=== PATIENT | male | born 1940 | race Caucasian/White ===

== ENCOUNTER 2017-12-11 14:28 | Emergency (ER) | payer MEDICARE, OTHER ==
[2017-12-11 15:10] LABS: BASOPHILS # (AUTO) 0.1 10^3/uL (0.0-0.1); BASOPHILS % (AUTO) 1.2 %; EOSINOPHILS # (AUTO) 0.1 10^3/uL (0.0-0.7); EOSINOPHILS % (AUTO) 1.4 %; HGB - HEMOGLOBIN 15.2 g/dL (14.0-18.0); LYMPHOCYTES # (AUTO) 2.6 10^3/uL (1.5-3.5); LYMPHOCYTES % (AUTO) 28.3 %; MEAN CORPUSCULAR HEMOGLOBIN 30.6 pg (27.0-31.0); MEAN CORPUSCULAR HGB CONC 34.9 g/dL (32.0-36.0); MEAN CORPUSCULAR VOLUME 87.7 fL (80.0-94.0); MEAN PLATELET VOLUME 7.5 fL (7.4-11.4); MONOCYTES # (AUTO) 0.7 10^3/uL (0.0-1.0); MONOCYTES % (AUTO) 7.8 %; NEUTROPHILS # (AUTO) 5.6 10^3/uL (1.5-6.6); NEUTROPHILS % (AUTO) 61.3 %; PLT - PLATELET COUNT 288 10^3/uL (130-450); RED BLOOD COUNT 4.96 10^6/uL (4.70-6.10); RED CELL DISTRIBUTION WIDTH 12.7 % (12.0-15.0); WHITE BLOOD COUNT 9.2 x10^3/uL (4.8-10.8)
[2017-12-11 15:22] LABS: ALBUMIN 4.1 g/dL (3.2-5.5); ALBUMIN/GLOBULIN RATIO 1.2 (1.0-2.2); BILIRUBIN,TOTAL 1.3 mg/dL (0.2-1.0); CALCIUM 9.6 mg/dL (8.5-10.3); CREATININE 1.5 mg/dL (0.6-1.2); TOTAL PROTEIN 7.5 g/dL (6.7-8.2)
--- NOTE | 2017-12-11 15:43 | XRAY Report ---
Reason: chest pain, soa, weak Procedure Date: 12/11/2017 Accession Number: [id number] / [id number] Procedure: XR - Chest 2 View X-Ray CPT Code: 40446 FULL RESULT: EXAM: CHEST RADIOGRAPHY EXAM DATE: 12/11/2017 03:27 PM. CLINICAL HISTORY: Dyspnea and chest pain. COMPARISON: 07/19/2017. TECHNIQUE: 2 views. FINDINGS: Lungs/Pleura: Lungs are mildly hyperinflated. No focal opacities. No pneumothorax or effusions. Mediastinum: Heart and mediastinal contours are unremarkable. Other: None. IMPRESSION: 1. No acute pulmonary process. 2. COPD. RADIA
[2017-12-11] MEDS ORDERED: SODIUM CHLORIDE 0.9% 1,000 ML IV ONE ×3 (15:50→18:31)
--- NOTE | 2017-12-11 15:53 | ED Physician Documentation ---
History of Present Illness - Stated complaint Stated Complaint: L ARM PX,WEAK - Chief complaint Chief Complaint: Cardiac - History obtained from History obtained from: Patient, Family - History of Present Illness Timing: How many weeks ago (1) - Additonal information Additional information: 77-year-old male with a history of coronary stents and CVA previously was out digging a hole in his yard 1 week ago. He came in from this extremely short of breath and has been weak since that time. He had significant weakness on Friday of last week and is developed some pain in his left arm and chest. He has had some shortness of breath is up and around and he feels faint. He did have a syncopal episode on Friday. He does not believe he has been drinking adequate amounts of fluid he has been checking his blood sugar and it is been running in the 120-140 range in the mornings. He expected his symptoms to resolve and they have persisted he is come to the emergency department for evaluation. Review of Systems Constitutional: reports: Myalgias, Fatigue. denies: Fever Eyes: denies: Decreased vision Ears: denies: Ear pain Nose: denies: Rhinorrhea / runny nose, Congestion Throat: denies: Sore throat Cardiac: reports: Chest pain / pressure. denies: Palpitations, Pedal edema, Calf pain Respiratory: reports: Dyspnea. denies: Cough, Wheezing GI: denies: Abdominal Pain, Nausea, Vomiting : denies: Dysuria, Frequency, Hesitancy Skin: denies: Rash Musculoskeletal: denies: Neck pain, Back pain, Extremity pain Neurologic: reports: Generalized weakness, Near syncope, Syncope. denies: Focal weakness, Numbness, Difficulty speaking PD PAST MEDICAL HISTORY - Past Medical History Cardiovascular: Hypertension, High cholesterol, Coronary artery disease, [place] Endocrine/Autoimmune: Type 2 diabetes GI: None : None Psych: None Musculoskeletal: Osteoarthritis Derm: None - Past Surgical History Past Surgical History: Yes General: Cholecystectomy, Appendectomy Cardiovascular: Coronary stent HEENT: Tonsil/Adenoidectomy - Allergies Allergies/Adverse Reactions: Allergies Allergy/AdvReac Type Severity Reaction Status Date / Time No Known Drug Allergies Allergy Verified 04/17/14 19:35 - Social History Does the pt smoke?: No Smoking Status: Never smoker Does the pt drink ETOH?: No Does the pt have substance abuse?: No - Immunizations Immunizations are current?: Yes - POLST Patient has POLST: No PD ED PE NORMAL - Vitals Vital signs reviewed: Yes (hypertensive diastolic only ) - General General: Alert and oriented X 3, No acute distress, Well developed/nourished - HEENT HEENT: Atraumatic, PERRL, EOMI, Other (dry mucous membranes ) - Neck Neck: Supple, no meningeal sign, No bony TTP - Cardiac Cardiac: No murmur, Other (tachy to 120 with irregular rate and rhythm ) - Respiratory Respiratory: No respiratory distress, Clear bilaterally - Abdomen Abdomen: Soft, Non tender - Back Back: No CVA TTP, No spinal TTP - Derm Derm: Normal color, Warm and dry, No rash - Extremities Extremities: No deformity, No edema - Neuro Neuro: Alert and oriented X 3, mental health therapist 2-12 intact, No motor deficit, No sensory deficit, Normal speech Eye Opening: Spontaneous Motor: Obeys Commands Verbal: Oriented GCS Score: 15 - Psych Psych: Normal mood, Normal affect Results - Vitals Vitals: Vital Signs - 24 hr 12/11/17 12/11/17 12/11/17 14:43 17:24 18:35 Temperature 36.8 C Heart Rate 67 87 108 H Respiratory 20 13 11 L Rate Blood Pressure 101/81 H 143/101 H 143/86 H O2 Saturation 97 97 99 12/11/17 18:48 Temperature Heart Rate 71 Respiratory Rate Blood Pressure 133/81 H O2 Saturation Oxygen O2 Source Room air - EKG (time done) 1451 Rate: Rate (enter#) (123) Rhythm: Atrial fibrillation QRS: Poor R wave progression Ischemia: Q waves Compare to prior EKG: Changed from prior EKG (SPT 01-12-13 the rhythm has chagned to afib and the rate has increased. ) Computer interpretation: Agree with computer - Labs Labs: Laboratory Tests 12/11/17 12/11/17 12/11/17 15:04 15:04 15:04 WBC 9.2 RBC 4.96 Hgb 15.2 Hct 43.5 MCV 87.7 MCH 30.6 MCHC 34.9 RDW 12.7 Plt Count 288 MPV 7.5 Neut # (Auto) 5.6 Lymph # (Auto) 2.6 Bureau # (Auto) 0.7 Eos # (Auto) 0.1 Baso # (Auto) 0.1 Absolute Nucleated RBC 0.00 Nucleated RBC % 0.0 Sodium 135 Potassium 3.7 Chloride 101 Carbon Dioxide 23 Anion Gap 11.0 BUN 34 H Creatinine 1.5 H Estimated GFR (MDRD) 45 L Glucose 300 H Calcium 9.6 Total Bilirubin 1.3 H AST 24 ALT 21 Alkaline Phosphatase 71 Troponin I < 0.04 Total Protein 7.5 Albumin 4.1 Globulin 3.4 Albumin/Globulin Ratio 1.2 Lipase 35 - Rads (name of study) 2 veiw chest Radiology: Prelim report reviewed (Impression: 1. No acute pulmonary process. COPD.), EMP read indepedently, See rad report Procedures - IVC sono (time) 1548 Bedside IVC sono: IVC measures (cm) (0.89), IVC collapsed c insp (cm) (complete) , Dehydration (est 2 liter deficit) PD MEDICAL DECISION MAKING - ED course Complexity details: reviewed old records, reviewed results, re-evaluated patient , considered differential, d/w patient, d/w family ED course: 77-year-old male with a recent overexertion has become significantly dehydrated and is in atrial fibrillation. He has a rapid rate and volume depletion. He is administered intravenous saline and this brings his heart rate to 100 after 2 liters and he continues to be symptomatic and he is administered diltiazem 20mg IV with reduction in the heart rate to the 70's with improvement. - Sepsis Event Vital Signs: Vital Signs - 24 hr 12/11/17 12/11/17 12/11/17 14:43 17:24 18:35 Temperature 36.8 C Heart Rate 67 87 108 H Respiratory 20 13 11 L Rate Blood Pressure 101/81 H 143/101 H 143/86 H O2 Saturation 97 97 99 12/11/17 18:48 Temperature Heart Rate 71 Respiratory Rate Blood Pressure 133/81 H O2 Saturation Oxygen O2 Source Room air Departure - Departure Disposition: 01 Home, Self Care Clinical Impression: Atrial fibrillation with RVR, Dehydration Condition: Stable Instructions: ED Dehydration, ED Afib Follow-Up: [facility] - [place], [place] [Provider Group] Amadeo Mcclain MD [Provider Admit Priv/Credential] -
[2017-12-11] MEDS ORDERED: diltiaZEM INJ 5 MG/ML VIAL IVP STA (18:32)
[2017-12-11 19:16] VITALS: BP 135/90
[2017-12-11 19:33] LABS: BILIRUBIN,URINE NEGATIVE (NEGATIVE); GLUCOSE, URINE (UA) 500 mg/dL (NEGATIVE); KETONES,URINE (UA) NEGATIVE (NEGATIVE); LEUKOCYTE ESTERASE, URINE NEGATIVE (NEGATIVE); NITRITE,URINE NEGATIVE (NEGATIVE); OCCULT BLOOD,URINE NEGATIVE (NEGATIVE); PH,URINE 6.5 PH (5.0-7.5); PROTEIN,URINE NEGATIVE (NEGATIVE); UROBILINOGEN,URINE 0.2 (NORMAL) E.U./dL (NORMAL)
[2017-12-11 19:39] LABS: CLARITY,URINE CLEAR (CLEAR)
== END 2017-12-11 19:25 | disposition home or self-care (01) ==
LOC: ED 14:28
DX: I48.91 Unspecified atrial fibrillation (principal); E86.0 Dehydration; E11.9 Type 2 diabetes mellitus without complications; I25.10 Atherosclerotic heart disease of native coronary artery without angina pectoris; I25.2 Old myocardial infarction; Z95.5 Presence of coronary angioplasty implant and graft; Z86.73 Personal history of transient ischemic attack (TIA), and cerebral infarction without residual deficits
CPT/HCPCS: 36415; 71046; 80053; 81001; 81003; 83690; 84484; 85025; 87086; 93005; 96361; 96374; 99284

== ENCOUNTER 2018-03-30 15:43 | Emergency (ER) | payer MEDICARE, OTHER ==
--- NOTE | 2018-03-30 16:11 | ED Physician Documentation ---
PD HPI GI BLEED - Stated complaint Stated Complaint: MALE - Chief complaint Chief Complaint: General - History obtained from History obtained from: Patient - History of Present Illness Timing - onset: How many days ago (few) Timing - details: Gradual onset Associated symptoms: BRBPR (he is having some red blood around stool when he goes the past couple of days, and today it seemed to be mixed with the stool, like a swirl, rather than just separate.). No: Black/tarry stool, Diarrhea Contributing factors: No: Sick contact, Bad food, Recent antibiotics, Anticoagulated Worsened by: Other (noted blood out with BMs.) Similar symptoms before: Has not had sx before Recently seen: Clinic (had atrial fib again recently and started on Xarelto 3 weeks ago.) Review of Systems Constitutional: denies: Fever, Myalgias Nose: denies: Rhinorrhea / runny nose, Congestion, Epistaxis Throat: denies: Sore throat Cardiac: denies: Chest pain / pressure, Palpitations Respiratory: denies: Dyspnea, Cough GI: reports: Bloody / black stool. denies: Abdominal Pain, Nausea, Vomiting, Diarrhea, Hematemesis : reports: Hematuria (cola colored urine for the past week, seen in clinic and Rx antibiotic for possible UTI with UA done showing some blood in urine.). denies: Dysuria, Frequency Skin: denies: Rash, Lesions Neurologic: denies: Generalized weakness, Near syncope PD PAST MEDICAL HISTORY - Past Medical History Cardiovascular: Hypertension, High cholesterol, Coronary artery disease Respiratory: None Neuro: CVA Endocrine/Autoimmune: Type 2 diabetes GI: None : None HEENT: None Psych: None Musculoskeletal: Osteoarthritis Derm: None Other Past Medical History: 2 stents - Past Surgical History Past Surgical History: Yes General: Cholecystectomy Cardiovascular: Coronary stent HEENT: Tonsil/Adenoidectomy - Present Medications Home Medications: Ambulatory Orders Medication Instructions Recorded Confirmed Hydrocortisone Acetate [Anucort-Hc] 25 mg RC DAILY #5 supp.rect 03/30/18 Rivaroxaban [Xarelto] 1 tab PO DAILY 03/30/18 03/30/18 - Allergies Allergies/Adverse Reactions: Allergies Allergy/AdvReac Type Severity Reaction Status Date / Time No Known Drug Allergies Allergy Verified 03/30/18 15:55 - Social History Does the pt smoke?: No Smoking Status: Never smoker Does the pt drink ETOH?: No Does the pt have substance abuse?: No - Immunizations Immunizations are current?: Yes - POLST Patient has POLST: No PD ED PE NORMAL - Vitals Vital signs reviewed: Yes - General General: Alert and oriented X 3, No acute distress, Well developed/nourished - HEENT HEENT: Atraumatic, Pharynx benign - Neck Neck: Supple, no meningeal sign, No adenopathy - Cardiac Cardiac: RRR, No murmur - Respiratory Respiratory: Clear bilaterally - Abdomen Abdomen: Normal bowel sounds, Soft, Non tender, Non distended - Male Male : Deferred - Rectal Rectal: Other (some hemorrhoids noted, with scant bleeding externally. Digital exam shows brown stool in vault above that, soft, which does test guiac moderate positive, but not clear if getting that from the amount at hemorrhoid near opening. It is not melenotic. ) Results - Vitals Vitals: Vital Signs - 24 hr 03/30/18 03/30/18 15:51 18:56 Temperature 36.5 C Heart Rate 76 82 Respiratory 16 16 Rate Blood Pressure 144/65 H 179/95 H O2 Saturation 97 99 Oxygen O2 Source Room air - Labs Labs: Laboratory Tests 03/30/18 03/30/18 03/30/18 17:01 17:03 17:03 WBC 7.3 RBC 4.41 L Hgb 13.0 L Hct 38.4 L MCV 87.0 MCH 29.6 MCHC 34.0 RDW 12.5 Plt Count 255 MPV 7.1 L Neut # (Auto) 4.9 Lymph # (Auto) 1.7 [place] # (Auto) 0.6 Eos # (Auto) 0.1 Baso # (Auto) 0.1 Absolute Nucleated RBC 0.00 Nucleated RBC % 0.0 Sodium 131 L Potassium 3.5 Chloride 99 L Carbon Dioxide 25 Anion Gap 7.0 BUN 15 Creatinine 1.1 Estimated GFR (MDRD) 65 L Glucose 246 H Calcium 8.7 Total Bilirubin 0.7 AST 16 ALT 14 Alkaline Phosphatase 102 Total Protein 7.1 Albumin 3.5 Globulin 3.6 Albumin/Globulin Ratio 1.0 Lipase 29 Urine Color BROWN Urine Clarity BLOODY Urine pH 6.0 Ur Specific [place] >=1.030 H Urine Protein 100 H Urine Glucose (UA) 500 H Urine Ketones NEGATIVE Urine Occult Blood LARGE H Urine Nitrite NEGATIVE Urine Bilirubin NEGATIVE Urine Urobilinogen 0.2 (NORMAL) Ur Leukocyte Esterase NEGATIVE Urine RBC TNTC H Urine WBC 4-5 Ur Squamous Epith Cells RARE Squamous Urine Bacteria None Seen Ur Microscopic Review INDICATED Urine Culture Comments NOT INDICATED Blood Type Antibody Screen 03/30/18 17:03 WBC RBC Hgb Hct MCV MCH MCHC RDW Plt Count MPV Neut # (Auto) Lymph # (Auto) [place] # (Auto) Eos # (Auto) Baso # (Auto) Absolute Nucleated RBC Nucleated RBC % Sodium Potassium Chloride Carbon Dioxide Anion Gap BUN Creatinine Estimated GFR (MDRD) Glucose Calcium Total Bilirubin AST ALT Alkaline Phosphatase Total Protein Albumin Globulin Albumin/Globulin Ratio Lipase Urine Color Urine Clarity Urine pH Ur Specific [place] Urine Protein Urine Glucose (UA) Urine Ketones Urine Occult Blood Urine Nitrite Urine Bilirubin Urine Urobilinogen Ur Leukocyte Esterase Urine RBC Urine WBC Ur Squamous Epith Cells Urine Bacteria Ur Microscopic Review Urine Culture Comments Blood Type O NEGATIVE Antibody Screen NEGATIVE PD MEDICAL DECISION MAKING - ED course Complexity details: reviewed results (seems stable amount of bleeding. ), considered differential (He does have some exam showing hemorrhoids. However his description of the blood mixed with stool suggests a higher source still in the lower colon likely. He also has some mild hematuria. His platelet count is normal. He does seem to be having effect from the Xarelto that he started a few weeks ago. However it does not indicate the cause of the bleeding just the enhancement of it. He still likely would warrant a colonoscopy to look for source of bleeding as I am not convinced it is just a hemorrhoid. We would have him off the Xarelto and just take a baby aspirin a day for the treatment of the atrial fibrillation.), d/w patient Departure - Departure Disposition: 01 Home, Self Care Clinical Impression: Anticoagulant effect Hematuria Qualifiers: Hematuria type: gross Qualified Code(s): R31.0 - Gross hematuria GI bleeding Qualifiers: GI bleed type/associated pathology: unspecified gastrointestinal hemorrhage type Qualified Code(s): K92.2 - Gastrointestinal hemorrhage, unspecified Condition: Stable Record reviewed to determine appropriate education?: Yes Instructions: ED Hematochezia Stable Follow-Up: Wilder Toribio DO [Primary Care Provider] - Andrzej Abreu MD [Provider Admit Priv/Credential] - Prescriptions: Hydrocortisone Acetate [Anucort-Hc] 25 mg RC DAILY #5 supp.rect Comments: Stay well-hydrated and drink lots of fluids. Stop your Xarelto. He can take a baby aspirin 81 mg daily to reduce her chance of stroke on the A. fib. Follow- up with Dr. Andrzej Abreu who is on-call for surgery regarding potential colonoscopy to evaluate the source of bleeding. Use Anusol suppositories for now as there seems to be at least some hemorrhoids though there may be other bleeding source from a prior. Follow-up with your primary care regarding an alternative to the Xarelto or just staying with the baby aspirin daily. Discharge Date/Time: 03/30/18 18:59
[2018-03-30 17:11] LABS: BASOPHILS # (AUTO) 0.1 10^3/uL (0.0-0.1); BASOPHILS % (AUTO) 0.8 %; EOSINOPHILS # (AUTO) 0.1 10^3/uL (0.0-0.7); EOSINOPHILS % (AUTO) 1.8 %; LYMPHOCYTES # (AUTO) 1.7 10^3/uL (1.5-3.5); LYMPHOCYTES % (AUTO) 22.8 %; MEAN CORPUSCULAR HEMOGLOBIN 29.6 pg (27.0-31.0); MEAN PLATELET VOLUME 7.1 fL (7.4-11.4); MONOCYTES # (AUTO) 0.6 10^3/uL (0.0-1.0); MONOCYTES % (AUTO) 7.8 %; NEUTROPHILS # (AUTO) 4.9 10^3/uL (1.5-6.6); NEUTROPHILS % (AUTO) 66.8 %; PLT - PLATELET COUNT 255 10^3/uL (130-450); RED BLOOD COUNT 4.41 10^6/uL (4.70-6.10); RED CELL DISTRIBUTION WIDTH 12.5 % (12.0-15.0); WHITE BLOOD COUNT 7.3 x10^3/uL (4.8-10.8)
[2018-03-30 17:22] LABS: ALBUMIN 3.5 g/dL (3.2-5.5); BILIRUBIN,TOTAL 0.7 mg/dL (0.2-1.0); CALCIUM 8.7 mg/dL (8.5-10.3); CREATININE 1.1 mg/dL (0.6-1.2); TOTAL PROTEIN 7.1 g/dL (6.7-8.2)
[2018-03-30 17:51] LABS: BILIRUBIN,URINE NEGATIVE (NEGATIVE); GLUCOSE, URINE (UA) 500 mg/dL (NEGATIVE); KETONES,URINE (UA) NEGATIVE (NEGATIVE); LEUKOCYTE ESTERASE, URINE NEGATIVE (NEGATIVE); NITRITE,URINE NEGATIVE (NEGATIVE); OCCULT BLOOD,URINE LARGE (NEGATIVE); PROTEIN,URINE 100 mg/dL (NEGATIVE); UROBILINOGEN,URINE 0.2 (NORMAL) E.U./dL (NORMAL)
[2018-03-30 17:54] LABS: BACTERIA,URINE None Seen /HPF (None Seen); CLARITY,URINE BLOODY (CLEAR); RBC,URINE TNTC /HPF (0-5); SQUAMOUS EPITHELIAL CELL,UR RARE Squamous (<= Few)
[2018-03-30 18:57] VITALS: BP 179/95
== END 2018-03-30 18:59 | disposition home or self-care (01) ==
LOC: ED 15:43
DX: T45.515A Adverse effect of anticoagulants, initial encounter (principal); R31.0 Gross hematuria; I10 Essential (primary) hypertension; E78.00 Pure hypercholesterolemia, unspecified; I25.10 Atherosclerotic heart disease of native coronary artery without angina pectoris; E11.9 Type 2 diabetes mellitus without complications; Z95.5 Presence of coronary angioplasty implant and graft; Z86.73 Personal history of transient ischemic attack (TIA), and cerebral infarction without residual deficits
CPT/HCPCS: 36415; 80053; 81001; 81003; 83690; 85025; 86850; 86900; 86901; 87086; 99283

== ENCOUNTER 2018-09-23 16:04 | Outpatient (CLI) | payer MEDICARE, OTHER ==
[2018-09-23] MEDS ORDERED: GADOBUTROL 10 MMOL/10 ML VIAL ONE (17:01)
[2018-09-23] MEDS ORDERED: GADOBUTROL 10 MMOL/10 ML VIAL IVP ONE (17:36)
--- NOTE | 2018-09-24 09:06 | MRI Report ---
Reason: RADICULOPATHY, LUMBAR REGION Procedure Date: 09/23/2018 Accession Number: [id number] / [id number] Procedure: MRI - Lumbar Spine W/WO CPT Code: FULL RESULT: EXAM: MRI LUMBAR SPINE WITHOUT AND WITH CONTRAST EXAM DATE: 09/23/2018 05:07 PM. CLINICAL HISTORY: Lumbar radiculopathy. Low back pain. Previous lumbar spine surgery. COMPARISONS: None. TECHNIQUE: Multiplanar, multisequence T1-weighted and fluid-sensitive sequences of the lumbar spine from T12 to S1 before and after administration of intravenous contrast. Other: None. IV contrast: 8.5 mL Gadavist. FINDINGS: Neurologic Structures: The conus terminates at L1. Alignment: Minimal levoconvex asymmetric lower lumbar curve. Minimal degenerative L5 on S1 retrolisthesis. Bone Marrow: No acute vertebral body collapse. Most prominent degenerative endplate signal changes are at L5-S1. 5 lumbar type vertebrae are assumed to be present. Disk Levels/Facets: T12-L1: Unremarkable. L1-L2: Unremarkable. L2-L3: Mild disk degeneration. Minimal to mild facet arthropathy. Circumferential bulge. Additional asymmetric broad-based left intraforaminal and far lateral protrusion. Mild central canal and left foraminal stenosis. L3-L4: Mild disk degeneration. Moderate facet arthropathy with ligamentum flavum thickening. Shallow circumferential disk bulge. Moderate central stenosis. Minimal foraminal stenosis. L4-L5: Moderate disk degeneration. Moderate to marked facet arthropathy with ligamentum flavum thickening. Susceptibility artifact from implanted spinal hardware between the L4 and L5 spinous processes. Prominent circumferential bulge. Mild marginal spurring. Upward migrating left posterior paracentral disk extrusion which measures 6 x 12 mm transverse and extends up to 17 mm superior to the L4 inferior endplate contributing to significant stenosis at the central canal and left lateral recess. At the disk space level, stenosis of the central canal and lateral recesses is severe from a combination of circumferential bulge, marginal spurring, and marked posterior element hypertrophic degenerative changes. Bilateral foraminal stenosis, mild on the right and mild to moderate on the left. L5-S1: Moderate to severe degenerative disk disease. Mild right and moderate left facet arthropathy. Patent central canal. Mild bilateral lateral recess stenosis. Moderate to severe bilateral foraminal stenosis. Circumferential bulge with marginal spurring is present with notable intraforaminal and far lateral components. Spinal Canal: No enhancing masses within the spinal canal. No epidural abscess. Musculature: Aortoiliac atherosclerosis. Mild abdominal aortic aneurysm up to 3.4 cm at the L3 level. Other: None. IMPRESSION: 1. Abdominal aortic aneurysm. 2. Prominent degenerative changes at multiple lumbar levels. Associated multi zone stenosis is most severe as described above at the L4-L5 level. 3. Susceptibility artifact from previous spinal hardware implantation between the L4 and L5 spinous processes. Comment: The following findings are so common in adults without low back pain that while we report their presence, they must be interpreted with caution and in the context of the clinical situation. (Reference Zulma et al, Spine 2001) Prevalence of findings in patients without low back pain: Disk degeneration (any evidence): 92% Disk desiccation/T2 signal loss: 83% Disk height loss: 56% Disk bulge: 64% Disk protrusion: 32% Annular tear/high intensity zone: 38% RADIA
== END 2018-09-23 16:05 | disposition home or self-care (01) ==
LOC: LAB 16:04
PROVIDERS: ATTEND Specialist
DX: M51.16 Intervertebral disc disorders with radiculopathy, lumbar region (principal); M51.17 Intervertebral disc disorders with radiculopathy, lumbosacral region; M47.26 Other spondylosis with radiculopathy, lumbar region; M47.27 Other spondylosis with radiculopathy, lumbosacral region; M48.061 Spinal stenosis, lumbar region without neurogenic claudication; M48.07 Spinal stenosis, lumbosacral region; I71.4 Abdominal aortic aneurysm, without rupture
CPT/HCPCS: 36415; 72158; 82565; A9585

== ENCOUNTER 2018-11-29 15:19 | Outpatient (CLI) | payer MEDICARE, OTHER | END 2018-11-29 15:20 | disposition critical access hospital (66) | LOC: EMS 15:19 | PROVIDERS: ATTEND Surgery | DX: R10.9 Unspecified abdominal pain (principal); M54.9 Dorsalgia, unspecified; R42 Dizziness and giddiness; R45.1 Restlessness and agitation | CPT/HCPCS: A0425; A0429 ==

== ENCOUNTER 2018-11-29 15:35 | Emergency (ER) | payer MEDICARE, OTHER ==
--- NOTE | 2018-11-29 15:59 | ED Physician Documentation ---
History of Present Illness - Stated complaint Stated Complaint: ABD PX - Chief complaint Chief Complaint: Abd Pain - History obtained from History obtained from: Patient - Additonal information Additional information: Patient is a 78-year-old male with history of GERD and multiple other comorbidities presenting with nearly 1 week of generalized abdominal discomfort. Patient reports that he struggles with chronic lower back pain from known lumbar radicular disease and has been taking large amounts of ibuprofen approximately 800 mg twice daily for the past several weeks. Patient was traveling internationally and had exacerbated lower back pain and came home early. Patient reports that over the past 1 week he has decrease his ibuprofen use, but has been experiencing intermittent Abdominal discomfort which she cannot localize. No associated fever, nausea, GERD symptoms, vomiting, urinary changes, or stool changes. Patient reports decreased oral intake. At this time, patient is without pain and otherwise a symptom medic. No other improving or worsening factors noted. Review of Systems Constitutional: denies: Fever GI: reports: Abdominal Pain. denies: Nausea, Vomiting, Constipation, Diarrhea : denies: Dysuria Musculoskeletal: reports: Back pain PD PAST MEDICAL HISTORY - Past Medical History Cardiovascular: Hypertension, High cholesterol, Coronary artery disease Respiratory: None Neuro: CVA Endocrine/Autoimmune: Type 2 diabetes GI: None : None HEENT: None Psych: None Musculoskeletal: Osteoarthritis Derm: None - Past Surgical History Past Surgical History: Yes General: Cholecystectomy Cardiovascular: Coronary stent HEENT: Tonsil/Adenoidectomy - Present Medications Home Medications: Ambulatory Orders Medication Instructions Recorded Confirmed Hydrocortisone Acetate [Anucort-Hc] 25 mg RC DAILY #5 supp.rect 03/30/18 Rivaroxaban [Xarelto] 1 tab PO DAILY 03/30/18 03/30/18 - Allergies Allergies/Adverse Reactions: Allergies Allergy/AdvReac Type Severity Reaction Status Date / Time No Known Drug Allergies Allergy Verified 03/30/18 15:55 - Social History Does the pt smoke?: No Smoking Status: Never smoker Does the pt drink ETOH?: No Does the pt have substance abuse?: No - Immunizations Immunizations are current?: Yes - POLST Patient has POLST: No PD ED PE NORMAL - Vitals Vital signs reviewed: Yes - General General: Alert and oriented X 3, No acute distress, Well developed/nourished - HEENT HEENT: Atraumatic, Moist mucous membranes - Neck Neck: Supple, no meningeal sign - Cardiac Cardiac: RRR, No murmur - Respiratory Respiratory: No respiratory distress, Clear bilaterally - Abdomen Abdomen: Soft, Non tender, Non distended - Derm Derm: Normal color, Warm and dry, No rash - Extremities Extremities: No deformity, No tenderness to palpate, No edema - Neuro Neuro: Alert and oriented X 3, No motor deficit, No sensory deficit - Psych Psych: Normal mood, Normal affect Results - Vitals Vitals: Vital Signs - 24 hr 11/29/18 15:52 Temperature 96.8 C H Heart Rate 73 Respiratory 18 Rate Blood Pressure 180/101 H O2 Saturation 99 Oxygen O2 Source Room air - Labs Labs: Laboratory Tests 11/29/18 11/29/18 11/29/18 15:50 16:08 16:08 WBC 6.5 RBC 4.81 Hgb 13.6 L Hct 40.9 L MCV 85.0 MCH 28.3 MCHC 33.3 RDW 12.4 Plt Count 263 MPV 9.4 Neut # (Auto) 4.0 Lymph # (Auto) 1.9 [place] # (Auto) 0.5 Eos # (Auto) 0.1 Baso # (Auto) 0.1 Absolute Nucleated RBC 0.00 Nucleated RBC % 0.0 Sodium 142 Potassium 3.4 L Chloride 103 Carbon Dioxide 25 Anion Gap 14.0 H BUN 22 H Creatinine 1.2 Estimated GFR (MDRD) 59 L Glucose 199 H Lactic Acid Calcium 9.8 Total Bilirubin 0.8 AST 35 ALT 39 Alkaline Phosphatase 75 Total Protein 7.7 Albumin 4.2 Globulin 3.5 Albumin/Globulin Ratio 1.2 Lipase 32 Urine Color LIGHT YELLOW Urine Clarity HAZY Urine pH 6.5 Ur Specific [place] <=1.005 Urine Protein 30 H Urine Glucose (UA) >=1000 H Urine Ketones NEGATIVE Urine Occult Blood SMALL H Urine Nitrite NEGATIVE Urine Bilirubin NEGATIVE Urine Urobilinogen 0.2 (NORMAL) Ur Leukocyte Esterase NEGATIVE Urine RBC 6-10 H Urine WBC 0-3 Ur Squamous Epith Cells RARE Squamous Urine Bacteria Rare Ur Microscopic Review INDICATED Urine Culture Comments NOT INDICATED 11/29/18 16:08 WBC RBC Hgb Hct MCV MCH MCHC RDW Plt Count MPV Neut # (Auto) Lymph # (Auto) [place] # (Auto) Eos # (Auto) Baso # (Auto) Absolute Nucleated RBC Nucleated RBC % Sodium Potassium Chloride Carbon Dioxide Anion Gap BUN Creatinine Estimated GFR (MDRD) Glucose Lactic Acid 1.4 Calcium Total Bilirubin AST ALT Alkaline Phosphatase Total Protein Albumin Globulin Albumin/Globulin Ratio Lipase Urine Color Urine Clarity Urine pH Ur Specific [place] Urine Protein Urine Glucose (UA) Urine Ketones Urine Occult Blood Urine Nitrite Urine Bilirubin Urine Urobilinogen Ur Leukocyte Esterase Urine RBC Urine WBC Ur Squamous Epith Cells Urine Bacteria Ur Microscopic Review Urine Culture Comments PD MEDICAL DECISION MAKING - ED course Complexity details: reviewed results, re-evaluated patient, considered differential, d/w patient ED course: Patient arrives asymptomatic but reports intermittent abdominal discomfort particular over the last several days following large amounts of ibuprofen in the past several weeks. Do feel the patient could be experiencing gastritis and ulcerative disease.Patient also has baseline GERD, which could be contributory. Physical exam today is extremely benign certainly no acute or surgical abdomen present. Have low suspicion for intra-abdominal pathology including renal disease, UTI, bowel obstruction, diverticulitis, or other complication, but considered. Patient started on IV fluids, but did not require medications except for gave 1 dose of Protonix given concern for ulcerative disease. Screening lab work and urinalysis returned extremely unremarkable. CT imaging did find multiple incidental findings and these were conveyed to the patient however, no acute findings that require emergent hospitalization or consult at this time. Advised on supportive cares including cessation of NSAIDs, diet and hydration recommendations, return precautions, appropriate follow-up. Patient voiced understanding and is comfortable with discharge plan. Departure - Departure Disposition: 01 Home, Self Care Clinical Impression: Abdominal pain Qualifiers: Abdominal location: generalized Qualified Code(s): R10.84 - Generalized abdominal pain Condition: Good Instructions: ED Abdominal Pain Unkn Cause Follow-Up: your,doctor [Other] - Within 3 Days Comments: Please continue home medications as previously instructed, however, please do not use ibuprofen, Aleve, Tylenol or other anti-inflammatories any further given the concern for gastritis and ulcerative disease. May try [id number] antacids as needed. Please follow-up with primary care physician next 2 to 3 days and consider referral to gastroenterology for further work-up likely to include endoscopy. Return to ED sooner if experience worsening symptoms or have other concerns.
[2018-11-29] MEDS ORDERED: SODIUM CHLORIDE 0.9% 1,000 ML IV ONE (16:00)
[2018-11-29 16:03] LABS: BILIRUBIN,URINE NEGATIVE (NEGATIVE); GLUCOSE, URINE (UA) >=1000 mg/dL (NEGATIVE); KETONES,URINE (UA) NEGATIVE (NEGATIVE); LEUKOCYTE ESTERASE, URINE NEGATIVE (NEGATIVE); NITRITE,URINE NEGATIVE (NEGATIVE); OCCULT BLOOD,URINE SMALL (NEGATIVE); PH,URINE 6.5 PH (5.0-7.5); PROTEIN,URINE 30 mg/dL (NEGATIVE); UROBILINOGEN,URINE 0.2 (NORMAL) E.U./dL (NORMAL)
[2018-11-29 16:05] LABS: CLARITY,URINE HAZY (CLEAR)
[2018-11-29 16:13] LABS: BACTERIA,URINE Rare /HPF (None Seen); SQUAMOUS EPITHELIAL CELL,UR RARE Squamous (<= Few)
[2018-11-29 16:16] LABS: BASOPHILS # (AUTO) 0.1 10^3/uL (0.0-0.1); BASOPHILS % (AUTO) 0.8 %; EOSINOPHILS # (AUTO) 0.1 10^3/uL (0.0-0.7); EOSINOPHILS % (AUTO) 1.1 %; HGB - HEMOGLOBIN 13.6 g/dL (14.0-18.0); LYMPHOCYTES # (AUTO) 1.9 10^3/uL (1.5-3.5); MEAN CORPUSCULAR HEMOGLOBIN 28.3 pg (27.0-31.0); MEAN CORPUSCULAR HGB CONC 33.3 g/dL (32.0-36.0); MEAN PLATELET VOLUME 9.4 fL (7.4-11.4); MONOCYTES # (AUTO) 0.5 10^3/uL (0.0-1.0); MONOCYTES % (AUTO) 7.4 %; NEUTROPHILS % (AUTO) 61.5 %; PLT - PLATELET COUNT 263 10^3/uL (130-450); RED BLOOD COUNT 4.81 10^6/uL (4.70-6.10); RED CELL DISTRIBUTION WIDTH 12.4 % (12.0-15.0); WHITE BLOOD COUNT 6.5 x10^3/uL (4.8-10.8)
[2018-11-29 16:27] LABS: ALBUMIN 4.2 g/dL (3.2-5.5); ALBUMIN/GLOBULIN RATIO 1.2 (1.0-2.2); BILIRUBIN,TOTAL 0.8 mg/dL (0.2-1.0); CALCIUM 9.8 mg/dL (8.5-10.3); CREATININE 1.2 mg/dL (0.6-1.2); TOTAL PROTEIN 7.7 g/dL (6.7-8.2)
[2018-11-29] MEDS ORDERED: PANTOPRAZOLE 40 MG VIAL IV STA (16:28)
[2018-11-29] MEDS ORDERED: IOVERSOL 320 100 ML VIAL IVP ONE ×2 (16:52→17:09)
--- NOTE | 2018-11-29 17:31 | CT Report ---
Reason: diffuse pain only Procedure Date: 11/29/2018 Accession Number: [id number] / [id number] Procedure: CT - Abdomen/Pelvis W CPT Code: FULL RESULT: EXAM: CT ABDOMEN AND PELVIS EXAM DATE: 11/29/2018 05:08 PM. CLINICAL HISTORY: Diffuse pain only. COMPARISONS: None. TECHNIQUE: Routine helical CT imaging was performed through the abdomen and pelvis. IV contrast: OPTI 320 90ML. Enteric contrast: No. Reconstructions: Coronal and sagittal. In accordance with CT protocol optimization, one or more of the following dose reduction techniques were utilized for this exam: automated exposure control, adjustment of mA and/or KV based on patient size, or use of iterative reconstructive technique. FINDINGS: Lung Bases: Unremarkable. Liver: Normal. No masses. Gallbladder/Bile Ducts: Soft post cholecystectomy. Spleen: Normal. Pancreas: Normal. Adrenal Glands: Normal. Kidneys: Normal. No masses or hydronephrosis. Peritoneal Cavity/Bowel: Normal. No free fluid, free air or adenopathy. No masses or acute inflammatory process. Appendix not visualized in right lower quadrant. Pelvic Organs: Normal. The bladder and visualized pelvic organs are within normal limits. Vasculature: Atherosclerotic disease involving abdominal aorta with infrarenal abdominal aortic aneurysm measuring 3.6 cm with mild peripheral nonocclusive thrombus (image 39 on series 3). Bones: No significant abnormality. Other: None. IMPRESSION: Status post cholecystectomy. Appendix not visualized in right lower quadrant. Diffuse colonic diverticulosis, however no diverticulitis. Aatherosclerotic disease of abdominal aorta with infrarenal abdominal aortic aneurysm measuring 3.6 cm with mild non-occlusive peripheral thrombus. No other significant abnormality. RADIA
[2018-11-29 17:50] VITALS: BP 207/111
== END 2018-11-29 17:50 | disposition home or self-care (01) ==
LOC: ED 15:35
DX: R10.84 Generalized abdominal pain (principal); K21.9 Gastro-esophageal reflux disease without esophagitis; K57.30 Diverticulosis of large intestine without perforation or abscess without bleeding; M53.87 Other specified dorsopathies, lumbosacral region; I71.4 Abdominal aortic aneurysm, without rupture; I10 Essential (primary) hypertension; E11.9 Type 2 diabetes mellitus without complications; Z86.73 Personal history of transient ischemic attack (TIA), and cerebral infarction without residual deficits; Z79.01 Long term (current) use of anticoagulants
CPT/HCPCS: 36415; 74177; 80053; 81001; 83605; 83690; 85025; 99284; Q9967; 81003; 87086

== ENCOUNTER 2019-05-19 18:17 | Outpatient (CLI) | payer MEDICARE, OTHER | END 2019-05-19 23:59 | disposition critical access hospital (66) | LOC: EMS 18:17 | PROVIDERS: ATTEND Surgery | DX: R07.89 Other chest pain (principal); R06.02 Shortness of breath | CPT/HCPCS: A0425; A0427 ==

== ENCOUNTER 2019-05-19 18:30 | Emergency (ER) | payer MEDICARE, OTHER ==
[2019-05-19 18:47] LABS: BASOPHILS % (AUTO) 0.7 %; EOSINOPHILS # (AUTO) 0.1 10^3/uL (0.0-0.7); EOSINOPHILS % (AUTO) 1.5 %; HGB - HEMOGLOBIN 11.8 g/dL (14.0-18.0); LYMPHOCYTES # (AUTO) 1.3 10^3/uL (1.5-3.5); MEAN CORPUSCULAR HEMOGLOBIN 27.2 pg (27.0-31.0); MEAN CORPUSCULAR HGB CONC 32.7 g/dL (32.0-36.0); MEAN CORPUSCULAR VOLUME 83.2 fL (80.0-94.0); MEAN PLATELET VOLUME 9.3 fL (7.4-11.4); MONOCYTES # (AUTO) 0.4 10^3/uL (0.0-1.0); MONOCYTES % (AUTO) 6.9 %; NEUTROPHILS # (AUTO) 4.2 10^3/uL (1.5-6.6); NEUTROPHILS % (AUTO) 69.7 %; PLT - PLATELET COUNT 202 10^3/uL (130-450); RED BLOOD COUNT 4.34 10^6/uL (4.70-6.10); RED CELL DISTRIBUTION WIDTH 12.3 % (12.0-15.0)
[2019-05-19] MEDS ORDERED: ASPIRIN CHEW 81 MG TABLET PO STA (18:58)
--- NOTE | 2019-05-19 18:59 | ED Physician Documentation ---
PD HPI CHEST PAIN - Stated complaint Stated Complaint: CP - Chief complaint Chief Complaint: Cardiac - History obtained from History obtained from: Patient (Complaint of substernal chest pressure on exertion started at 5:00 in the evening. Patient was out walking. On the way home there was a incline of a few 100 yards. He failed the exertional component and feel tight to the chest. At that time chest pressure was 8 out of 10. There was associated shortness of breath. No nausea no vomiting. This has been ongoing for the last 1 month. Patient has been seen by primary care doctor for it. There is a referral to cardiology and stress test in June. Patient felt he need to be examined much earlier. In the emergency room patient's chest pressure is 1 out of 10. Cardiac risk factor: Hypertension, diabetes, previous stent x2) - History of Present Illness Timing - onset: How many hours ago (2), How many months ago (1) Timing - onset during: Exertion Timing - details: Gradual onset, Still present Review of Systems Ten Systems: 10 systems reviewed and negative Constitutional: reports: Reviewed and negative Eyes: reports: Reviewed and negative Ears: reports: Reviewed and negative Nose: reports: Reviewed and negative Throat: reports: Reviewed and negative Cardiac: reports: Chest pain / pressure. denies: Palpitations, Pedal edema, Calf pain Respiratory: reports: Dyspnea GI: reports: Reviewed and negative : reports: Reviewed and negative Skin: reports: Reviewed and negative Musculoskeletal: reports: Reviewed and negative Neurologic: reports: Reviewed and negative Psychiatric: reports: Reviewed and negative Endocrine: reports: Reviewed and negative Immunocompromised: reports: Reviewed and negative PD PAST MEDICAL HISTORY - Past Medical History Past Medical History: Yes Cardiovascular: Hypertension, High cholesterol, Coronary artery disease Respiratory: None Neuro: CVA Endocrine/Autoimmune: Type 2 diabetes GI: None : None HEENT: None Psych: None Musculoskeletal: Osteoarthritis Derm: None - Past Surgical History Past Surgical History: Yes General: Cholecystectomy Cardiovascular: Coronary stent HEENT: Tonsil/Adenoidectomy - Present Medications Home Medications: Ambulatory Orders Medication Instructions Recorded Confirmed Atorvastatin [Lipitor] 40 mg PO DAILY 05/19/19 05/19/19 HYDROcod/ACETAM 5/325 [Rupert 5/325] 1.5 tab PO TID 05/19/19 05/19/19 Lisinopril [Zestril] 40 mg PO DAILY 05/19/19 05/19/19 Omeprazole 20 mg PO DAILY 05/19/19 05/19/19 Pregabalin 100 mg PO DAILY 05/19/19 05/19/19 Tamsulosin HCl [Flomax] 0.8 mg PO DAILY 05/19/19 05/19/19 Triazolam 0.25 mg PO DAILY PM 05/19/19 05/19/19 diltiaZEM CD [Cardizem Cd] 180 mg PO DAILY 05/19/19 05/19/19 - Allergies Allergies/Adverse Reactions: Allergies Allergy/AdvReac Type Severity Reaction Status Date / Time No Known Drug Allergies Allergy Verified 05/19/19 18:37 - Social History Does the pt smoke?: No Smoking Status: Never smoker Does the pt drink ETOH?: No Does the pt have substance abuse?: No - Immunizations Immunizations are current?: Yes - POLST Patient has POLST: No PD ED PE NORMAL - Vitals Vital signs reviewed: Yes - General General: Alert and oriented X 3, No acute distress - HEENT HEENT: PERRL - Neck Neck: Supple, no meningeal sign - Cardiac Cardiac: RRR, No murmur - Respiratory Respiratory: Clear bilaterally - Abdomen Abdomen: Normal bowel sounds, Soft, Non tender, Non distended - Derm Derm: Warm and dry - Extremities Extremities: No deformity - Neuro Neuro: Alert and oriented X 3 - Psych Psych: Normal mood, Normal affect Results - Vitals Vitals: Vital Signs - 24 hr 05/19/19 05/19/19 05/19/19 18:37 19:10 19:34 Temperature 37 C Heart Rate 95 78 81 Respiratory 14 16 16 Rate Blood Pressure 163/97 H 164/86 H 161/84 H O2 Saturation 96 97 05/19/19 05/19/19 05/19/19 20:35 20:51 21:00 Temperature Heart Rate 98 105 H 91 Respiratory 14 16 16 Rate Blood Pressure 185/110 H 170/100 H 171/106 H O2 Saturation 98 98 96 05/19/19 05/19/19 21:30 22:38 Temperature Heart Rate 88 86 Respiratory 12 12 Rate Blood Pressure 178/91 H 206/113 H O2 Saturation 96 97 Oxygen O2 Source Room air - EKG (time done) No standard instances Rate: Rate (enter#) (95) Rhythm: NSR Latimer: Normal Intervals: Normal LA QRS: Poor R wave progression - Labs Labs: Laboratory Tests 05/19/19 05/19/19 05/19/19 18:43 18:43 18:43 WBC 6.0 RBC 4.34 L Hgb 11.8 L Hct 36.1 L MCV 83.2 MCH 27.2 MCHC 32.7 RDW 12.3 Plt Count 202 MPV 9.3 Neut # (Auto) 4.2 Lymph # (Auto) 1.3 L [place] # (Auto) 0.4 Eos # (Auto) 0.1 Baso # (Auto) 0.0 Absolute Nucleated RBC 0.00 Nucleated RBC % 0.0 PT INR Sodium 136 Potassium 4.1 Chloride 100 L Carbon Dioxide 23 Anion Gap 13.0 BUN 22 H Creatinine 1.4 H Estimated GFR (MDRD) 49 L Glucose 331 H Calcium 8.4 L Total Bilirubin 0.4 AST 29 ALT 24 Alkaline Phosphatase 66 Troponin I High Sens 24.2 H* B-Natriuretic Peptide Total Protein 6.8 Albumin 3.7 Globulin 3.1 Albumin/Globulin Ratio 1.2 Lipase 28 05/19/19 05/19/19 05/19/19 18:43 18:43 20:04 WBC RBC Hgb Hct MCV MCH MCHC RDW Plt Count MPV Neut # (Auto) Lymph # (Auto) [place] # (Auto) Eos # (Auto) Baso # (Auto) Absolute Nucleated RBC Nucleated RBC % PT 12.4 INR 1.1 Sodium Potassium Chloride Carbon Dioxide Anion Gap BUN Creatinine Estimated GFR (MDRD) Glucose Calcium Total Bilirubin AST ALT Alkaline Phosphatase Troponin I High Sens 57.8 H* B-Natriuretic Peptide 119 H Total Protein Albumin Globulin Albumin/Globulin Ratio Lipase PD MEDICAL DECISION MAKING - ED course Complexity details: d/w patient ED course: Patient presented emergency room with chest pain he does have a cardiac risk factor including hypertension, hyperlipidemia, previous angioplasty x2. Initial differential diagnosis include acute coronary syndrome, unstable angina, pneumonia, pneumothorax. I did have a reassessment at 835, patient second troponin continue to rise. It is 57.8. Patient is given impression of evolving non-STEMI. EKG shows no changes in the ST segments. at 8:45 I have spoken to Dr. Nguyen , Hospitalist collision worker, I have outlined to him patient clinical presentation, exertional chest pain with elevated troponin that is evolving. He suggested Contacting the figurine maker for potential transfer. [employer] paged at 8:50 PM At 850 I spoken to the figurine maker on-call, Dr. Prado at [facility], I have outlined to him patient's clinical presentation. He accept the patient and would like to me to talk to the hospitalist. He recommended heparin drip, Lopressor IV, Plavix 300 mg, Lipitor 40 mg p.o. Unfortunately there is no bed at [facility]. We will attempt transfer the patient to [place] since [facility]. At 915 I was spoken to Dr. Mejía and outlined to him my management in the emergency room, patient's clinical presentation, elevated and evolving troponin. He asked me to contact the hospitalist and he can be the webmethods consultant. at 9:45 Dr. Hatch, [employer] on-call at [facility], was spoken to. I have outlined to her about patient's clinical presentation, resolving chest pressure now, and stable vitals. Elevated troponin that is evolving. She accepted the patient. We will arrange transfer. Departure - Departure Disposition: 02 Transfer Acute Care Hosp Clinical Impression: Non-STEMI (non-ST elevated myocardial infarction) Condition: Stable Discharge Date/Time: 05/19/19 23:14
[2019-05-19 19:01] LABS: ALBUMIN 3.7 g/dL (3.2-5.5); ALBUMIN/GLOBULIN RATIO 1.2 (1.0-2.2); BILIRUBIN,TOTAL 0.4 mg/dL (0.2-1.0); CALCIUM 8.4 mg/dL (8.5-10.3); CREATININE 1.4 mg/dL (0.6-1.2); TOTAL PROTEIN 6.8 g/dL (6.7-8.2)
--- NOTE | 2019-05-19 19:05 | XRAY Report ---
Reason: Chest Pain Procedure Date: 05/19/2019 Accession Number: [id number] / [id number] Procedure: XR - Chest 1 View X-Ray CPT Code: 81975 Final Report FULL RESULT: EXAM: CHEST RADIOGRAPHY EXAM DATE: 05/19/2019 06:52 PM. CLINICAL HISTORY: Chest Pain. COMPARISON: CHEST 2 VIEW 12/11/2017 3:02 PM. TECHNIQUE: 1 view. FINDINGS: Lungs/Pleura: No focal opacities evident. No pleural effusion. No pneumothorax. Mediastinum: Within exam limitations, the cardiomediastinal contour is normal. Other: Bony densities projecting superior to the left humeral head which may represent calcifications along the rotator cuff. IMPRESSION: No focal consolidation. RADIA
[2019-05-19 19:18] LABS: INR 1.1 (0.8-1.2); PT - PROTHROMBIN TIME 12.4 secs (9.9-12.6)
[2019-05-19] MEDS: NITROGLYCERIN SL 0.4 MG TABLET SL STA ×2 (19:26→20:35)
[2019-05-19] MEDS ORDERED: CLOPIDOGREL 300 MG TABLET PO STA (20:56)
[2019-05-19] MEDS ORDERED: ATORVASTATIN 40 MG TABLET PO STA (20:56)
[2019-05-19] MEDS ORDERED: METOPROLOL 5 MG/5 ML VIAL IVP STA (20:56)
[2019-05-19] MEDS ORDERED: HEPARIN 25000UNITS/500ML (D5W) 25,000 UNIT/500 ML BAG IV STA (20:57)
[2019-05-19 22:38] VITALS: BP 206/113
[2019-05-19] MEDS ORDERED: NITROGLYCERIN 2% PASTE TOP STA (22:48)
== END 2019-05-19 23:14 | disposition short-term general hospital (02) ==
LOC: EDUNIT# → ED 18:30
DX: I21.4 Non-ST elevation (NSTEMI) myocardial infarction (principal); I25.10 Atherosclerotic heart disease of native coronary artery without angina pectoris; Z95.5 Presence of coronary angioplasty implant and graft; I10 Essential (primary) hypertension; E78.5 Hyperlipidemia, unspecified; E11.9 Type 2 diabetes mellitus without complications
CPT/HCPCS: 36415; 71045; 80053; 83690; 83880; 84484; 85025; 85610; 93005; 96374; 99285; A9270

== ENCOUNTER 2021-05-15 17:28 | Outpatient (CLI) | payer MEDICARE, OTHER | END 2021-05-15 17:29 | disposition critical access hospital (66) | LOC: EMS 17:28 | DX: R10.9 Unspecified abdominal pain (principal); R11.2 Nausea with vomiting, unspecified | CPT/HCPCS: A0425; A0427 ==

== ENCOUNTER 2021-05-15 17:46 | Emergency (ER) | payer MEDICARE, OTHER ==
[2021-05-15] MEDS ORDERED: ONDANSETRON ODT 4 MG TABLET TL STA (17:56)
[2021-05-15 18:06] LABS: BASOPHILS # (AUTO) 0.1 10^3/uL (0.0-0.1); BASOPHILS % (AUTO) 0.6 %; EOSINOPHILS % (AUTO) 0.2 %; HCT - HEMATOCRIT 42.5 % (42.0-52.0); HGB - HEMOGLOBIN 15.1 g/dL (14.0-18.0); LYMPHOCYTES # (AUTO) 1.9 10^3/uL (1.5-3.5); LYMPHOCYTES % (AUTO) 17.1 %; MEAN CORPUSCULAR HEMOGLOBIN 30.6 pg (27.0-31.0); MEAN CORPUSCULAR HGB CONC 35.5 g/dL (32.0-36.0); MEAN PLATELET VOLUME 9.6 fL (7.4-11.4); MONOCYTES # (AUTO) 0.6 10^3/uL (0.0-1.0); MONOCYTES % (AUTO) 5.9 %; NEUTROPHILS # (AUTO) 8.2 10^3/uL (1.5-6.6); NEUTROPHILS % (AUTO) 75.6 %; PLT - PLATELET COUNT 201 10^3/uL (130-450); RED BLOOD COUNT 4.94 10^6/uL (4.70-6.10); RED CELL DISTRIBUTION WIDTH 12.1 % (12.0-15.0); WHITE BLOOD COUNT 10.8 x10^3/uL (4.8-10.8)
[2021-05-15 18:19] LABS: ALBUMIN 4.6 g/dL (3.2-5.5); ALBUMIN/GLOBULIN RATIO 1.3 (1.0-2.2); BILIRUBIN,TOTAL 0.8 mg/dL (0.2-1.0); CALCIUM 10.3 mg/dL (8.5-10.3); CREATININE 0.9 mg/dL (0.6-1.2); POTASSIUM 2.9 mmol/L (3.5-5.0); TOTAL PROTEIN 8.1 g/dL (6.7-8.2)
[2021-05-15] MEDS ORDERED: iohexoL-300 100 ML VIAL ONE (18:43)
[2021-05-15] MEDS ORDERED: HYDROmorphone 1 MG/ML CARPUJECT IVP STA (18:51)
[2021-05-15 19:02] LABS: BILIRUBIN,URINE NEGATIVE (NEGATIVE); GLUCOSE, URINE (UA) >=1000 mg/dL (NEGATIVE); KETONES,URINE (UA) TRACE mg/dL (NEGATIVE); LEUKOCYTE ESTERASE, URINE NEGATIVE (NEGATIVE); NITRITE,URINE NEGATIVE (NEGATIVE); OCCULT BLOOD,URINE SMALL (NEGATIVE); PROTEIN,URINE 100 mg/dL (NEGATIVE); UROBILINOGEN,URINE 0.2 (NORMAL) E.U./dL (NORMAL)
[2021-05-15] MEDS ORDERED: PROMETHAZINE INJ 12.5 MG in SODIUM CHLORIDE 0.9% 50 ML IV STA ×2 (19:03→21:00)
[2021-05-15 19:04] LABS: CLARITY,URINE CLEAR (CLEAR)
[2021-05-15] MEDS ORDERED: PROMETHAZINE 25 MG/1 ML VIAL ONE ×2 (19:14→21:12)
[2021-05-15 19:16] LABS: BACTERIA,URINE None Seen /HPF (None Seen); SQUAMOUS EPITHELIAL CELL,UR RARE Squamous (<= Few); WBC,URINE 0-3 /HPF (0-3)
[2021-05-15] MEDS ORDERED: iohexoL-300 100 ML VIAL IVP ONE (19:52)
--- NOTE | 2021-05-15 20:46 | CT Report ---
PROCEDURE: Abdomen/Pelvis W INDICATIONS: diffuse abd pain, vomiting CONTRAST: IV CONTRAST: Isovue 300 ml: 100 PO CONTRAST: *NO PO CONTRAST TECHNIQUE: After the administration of intravenous contrast, 5 mm thick sections acquired from the diaphragms to the symphysis. 5 mm thick coronal and sagittal reformats were acquired. For radiation dose reducti on, the following was used: automated exposure control, adjustment of mA and/or kV according to ayaan ent size. COMPARISON: None. FINDINGS: Image quality: Excellent. ABDOMEN: Lung bases: Lung bases are clear. Heart size is normal. Solid organs: Liver and spleen are normal in size and enhancement. Gallbladder has been removed Bi liary system is non dilated. Pancreas enhances normally. No adrenal nodules. Kidneys demonstrate n ormal size and enhancement, without hydronephrosis. Peritoneum and bowel: Bowel loops demonstrate normal wall thickness and caliber. No free fluid or a ir. Nodes and vessels: Infrarenal abdominal aortic aneurysm unchanged from prior study. No retroperitonea l or mesenteric adenopathy by size criteria. Miscellaneous: No ventral hernias. PELVIS: Genitourinary: Bladder wall thickness is normal. Enlarged prostate. No sagittal enlarged pelvic or inguinal lymph nodes. Miscellaneous: No inguinal hernia. Bones: No suspicious bony lesions. No vertebral body compression fractures. IMPRESSION: No acute finding. Reviewed by: Tramaine Barahona MD on 05/15/2021 8:45 PM PST Approved by: Tramaine Barahona MD on 05/15/2021 8:45 PM PST Station ID: [id number]
--- NOTE | 2021-05-15 21:03 | ED Physician Documentation ---
History of Present Illness - Stated complaint Stated Complaint: N/V/ABD PX - Chief complaint Chief Complaint: Abd Pain - History obtained from History obtained from: Patient - History of Present Illness Timing: Today Pain level max: 10 Pain level now: 10 - Additonal information Additional information: Patient is an 80-year-old male who states he has had abdominal pain, nausea and vomiting today. No diarrhea. No constipation. Nothing makes it better or worse. Has not had similar symptoms previously. No prior abdominal surgeries. No history of bowel obstructions. No fevers. No recent antibiotics or travel. Review of Systems Ten Systems: 10 systems reviewed and negative Constitutional: denies: Fever, Chills, Myalgias Ears: denies: Ear pain Nose: denies: Rhinorrhea / runny nose, Congestion Cardiac: denies: Chest pain / pressure Respiratory: denies: Dyspnea, Cough, Wheezing GI: reports: Abdominal Pain (diffuse, crampy), Nausea, Vomiting Skin: denies: Rash Musculoskeletal: denies: Neck pain, Back pain Neurologic: denies: Headache PD PAST MEDICAL HISTORY - Past Medical History Cardiovascular: Hypertension, High cholesterol, Coronary artery disease Respiratory: None Neuro: CVA Endocrine/Autoimmune: Type 2 diabetes GI: None : None HEENT: None Psych: None Musculoskeletal: Osteoarthritis Derm: None - Past Surgical History Past Surgical History: Yes General: Cholecystectomy Cardiovascular: Coronary stent HEENT: Tonsil/Adenoidectomy - Present Medications Home Medications: Ambulatory Orders Medication Instructions Recorded Confirmed Atorvastatin [Lipitor] 40 mg PO DAILY 05/19/19 05/19/19 HYDROcod/ACETAM 5/325 [[place] 5/325] 1.5 tab PO TID 05/19/19 05/19/19 Lisinopril [Zestril] 40 mg PO DAILY 05/19/19 05/19/19 Omeprazole 20 mg PO DAILY 05/19/19 05/19/19 Pregabalin 100 mg PO DAILY 05/19/19 05/19/19 Tamsulosin HCl [Flomax] 0.8 mg PO DAILY 05/19/19 05/19/19 Triazolam 0.25 mg PO DAILY PM 05/19/19 05/19/19 [id number] CD [Cardizem Cd] 180 mg PO DAILY 05/19/19 05/19/19 Ondansetron Odt [Zofran] 4 mg TL Q6H PRN #10 tablet 05/15/21 Promethazine [Phenergan] 25 mg PO Q6H PRN #10 tab 05/15/21 - Allergies Allergies/Adverse Reactions: Allergies Allergy/AdvReac Type Severity Reaction Status Date / Time No Known Drug Allergies Allergy Verified 05/15/21 17:56 - Social History Does the pt smoke?: No Smoking Status: Never smoker Does the pt drink ETOH?: No Does the pt have substance abuse?: No - Immunizations Immunizations are current?: Yes - POLST Patient has POLST: No PD ED PE NORMAL - Vitals Vital signs reviewed: Yes - General General: Alert and oriented X 3, No acute distress - HEENT HEENT: Moist mucous membranes - Cardiac Cardiac: RRR, Strong equal pulses - Respiratory Respiratory: No respiratory distress, Clear bilaterally - Abdomen Abdomen: Normal bowel sounds, Soft, Non tender, Non distended - Derm Derm: Warm and dry - Extremities Extremities: No edema - Neuro Neuro: Alert and oriented X 3 - Psych Psych: Normal mood, Normal affect Results - Vitals Vitals: Vital Signs - 24 hr 05/15/21 05/15/21 05/15/21 17:52 19:43 21:11 Temperature 37.6 C 36.7 C Heart Rate 107 H 84 119 H Respiratory 20 16 16 Rate Blood Pressure 157/115 H 157/86 H 201/106 H O2 Saturation 100 100 99 05/15/21 05/15/21 05/15/21 21:56 22:28 22:42 Temperature 37.2 C Heart Rate 90 99 92 Respiratory 18 18 16 Rate Blood Pressure 199/104 H 185/107 H 116/89 H O2 Saturation 97 98 97 Oxygen O2 Source Room air - Labs Labs: Laboratory Tests 05/15/21 05/15/21 05/15/21 17:55 17:55 18:48 WBC 10.8 RBC 4.94 Hgb 15.1 Hct 42.5 MCV 86.0 MCH 30.6 MCHC 35.5 RDW 12.1 Plt Count 201 MPV 9.6 Neut # (Auto) 8.2 H Lymph # (Auto) 1.9 [place] # (Auto) 0.6 Eos # (Auto) 0.0 Baso # (Auto) 0.1 Absolute Nucleated RBC 0.00 Nucleated RBC % 0.0 Sodium 137 Potassium 2.9 L Chloride 95 L Carbon Dioxide 25 Anion Gap 17.0 H BUN 11 Creatinine 0.9 Estimated GFR (MDRD) 81 L Glucose 298 H Calcium 10.3 Total Bilirubin 0.8 AST 29 ALT 31 Alkaline Phosphatase 62 Total Protein 8.1 Albumin 4.6 Globulin 3.5 Albumin/Globulin Ratio 1.3 Lipase 23 Urine Color YELLOW Urine Clarity CLEAR Urine pH 8.0 H Ur Specific [place] 1.025 Urine Protein 100 H Urine Glucose (UA) >=1000 H Urine Ketones TRACE Urine Occult Blood SMALL H Urine Nitrite NEGATIVE Urine Bilirubin NEGATIVE Urine Urobilinogen 0.2 (NORMAL) Ur Leukocyte Esterase NEGATIVE Urine RBC 6-10 H Urine WBC 0-3 Ur Squamous Epith Cells RARE Squamous Urine Bacteria None Seen Ur Microscopic Review INDICATED Urine Culture Comments NOT INDICATED - Rads (name of study) CT abd/pelvis Radiology: Final report received, EMP read contemporaneously, See rad report (No acute finding. ) PD MEDICAL DECISION MAKING - ED course Complexity details: reviewed results, re-evaluated patient, considered differential, d/w patient ED course: 80-year-old male with abdominal pain, nausea and vomiting today. Given pain medication, Phenergan and IV fluids. Symptoms resolved. Patient feels much better. No acute findings on CT or laboratory testing. Likely viral illness. We will have him follow-up with his doctor for further care. Patient is well- appearing, nontoxic. Afebrile. Patient counseled regarding signs and symptoms for which I believe and urgent re-evaluation would be necessary. Patient with good understanding of and agreement to plan and is comfortable going home at this time This document was made in part using voice recognition software. While efforts are made to proofread this document, sound alike and grammatical errors may occur. Departure - Departure Disposition: 01 Home, Self Care Clinical Impression: Hyperglycemia, Hypokalemia Vomiting Qualifiers: Vomiting type: unspecified Nausea presence: with nausea Qualified Code(s): R11.2 - Nausea with vomiting, unspecified Abdominal pain Qualifiers: Abdominal location: generalized Qualified Code(s): R10.84 - Generalized abdominal pain Condition: Good Instructions: ED Nausea Vomiting, ED Abdominal Pain Unkn Cause Male Follow-Up: Wilder Toribio DO [Primary Care Provider] - Within 1 week Prescriptions: Promethazine [Phenergan] 25 mg PO Q6H PRN #10 tab PRN Reason: Nausea / Vomiting Ondansetron Odt [Zofran] 4 mg TL Q6H PRN #10 tablet PRN Reason: Nausea / Vomiting Comments: Drink plenty of fluids and rest. Your CT scan and laboratory testing did not show any acute abnormalities today. Please follow-up with your doctor for further care. Please return if you worsen. This is likely a viral illness that will resolve on its own. Your prescriptions were sent to [facility]
[2021-05-15] MEDS ORDERED: oxyCODONE 5 MG TABLET PO STA (21:56)
[2021-05-15] MEDS ORDERED: HYOSCYAMINE SL 0.125 MG TABLET SL STA (21:56)
[2021-05-16] MEDS ORDERED: ONDANSETRON ODT 4 MG Prepack 2 TL STA (00:41)
[2021-05-16] MEDS ORDERED: oxyCODONE/ACET 5/325 Prepack 4 PO STA (00:41)
[2021-05-16 01:44] VITALS: BP 194/110
== END 2021-05-16 01:52 | disposition home or self-care (01) ==
LOC: EDUNIT# → ED 17:46
DX: E11.65 Type 2 diabetes mellitus with hyperglycemia (principal); E87.6 Hypokalemia; R10.84 Generalized abdominal pain; R11.2 Nausea with vomiting, unspecified; I10 Essential (primary) hypertension
CPT/HCPCS: 36415; 74177; 80053; 81001; 83690; 85025; 96365; 96366; 96375; 99284; A9270; J1170; J7040; Q0162; Q9967; 81003; 87086

== ENCOUNTER 2022-05-25 10:22 | Outpatient (CLI) | payer MEDICARE, OTHER | END 2022-05-25 10:23 | disposition critical access hospital (66) | LOC: EMS 10:22 | DX: R41.0 Disorientation, unspecified (principal); R29.6 Repeated falls; S09.90XA Unspecified injury of head, initial encounter; R29.810 Facial weakness; M54.2 Cervicalgia; R11.2 Nausea with vomiting, unspecified; W19.XXXA Unspecified fall, initial encounter; Y92.009 Unspecified place in unspecified non-institutional (private) residence as the place of occurrence of the external cause; Z79.01 Long term (current) use of anticoagulants | CPT/HCPCS: A0425; A0427 ==

== ENCOUNTER 2022-05-25 10:35 | Emergency (ER) | payer MEDICARE, OTHER ==
--- NOTE | 2022-05-25 11:05 | ED Physician Documentation ---
PD HPI ALTERED MENTAL STATUS - Stated complaint Stated Complaint: GLF - Chief complaint Chief Complaint: Neuro - History obtained from History obtained from: Patient, EMS - History of Present Illness Timing - onset: How many days ago (2-3) Timing - duration: Days (2-3 of worsening trouble walking and speaking.) Timing - details: Gradual onset, Still present Quality / character: Other (trouble speaking/ word loss and incomplete thoughts over past 2-3 days.). No: Agitated, Hallucinating Associated symptoms: Headache. No: Fever, Cough, NVD, Focal weakness Contributing factors: Anticoagulated, Recent med change (info from later is that pain meds changed from hydrocodone 4-6 daily to now methadone daily - changed 5-6 days ago.). No: Diabetic, Intoxicated Basline status: Alert and oriented X 3, Walker (uses walker with some balance problems due to leg neuropathy longer term. Seems worse the past few days with falling now the past few days.) Treatment [employer]: Accucheck Recently seen: Clinic Review of Systems Constitutional: denies: Fever, Chills Nose: denies: Rhinorrhea / runny nose, Congestion Throat: denies: Sore throat Cardiac: denies: Chest pain / pressure, Pedal edema Respiratory: denies: Dyspnea, Cough GI: denies: Abdominal Pain, Vomiting, Diarrhea Skin: denies: Abrasion (s), Laceration (s) Musculoskeletal: reports: Neck pain. denies: Back pain Neurologic: reports: Difficulty speaking, Head injury (did strike head lightly when falling, did not feel it was hard impact.). denies: Focal weakness, Numbness PD PAST MEDICAL HISTORY - Past Medical History Cardiovascular: Hypertension, High cholesterol, Coronary artery disease Respiratory: None Neuro: CVA Endocrine/Autoimmune: Type 2 diabetes GI: None : None HEENT: None Psych: None Musculoskeletal: Osteoarthritis Derm: None - Past Surgical History Past Surgical History: Yes General: Cholecystectomy Cardiovascular: Coronary stent HEENT: Tonsil/Adenoidectomy - Present Medications Home Medications: Ambulatory Orders Medication Instructions Recorded Confirmed Atorvastatin [Lipitor] 40 mg PO DAILY 05/19/19 05/19/19 HYDROcod/ACETAM 5/325 [[place] 5/325] 1.5 tab PO TID 05/19/19 05/19/19 Lisinopril [Zestril] 40 mg PO DAILY 05/19/19 05/19/19 Omeprazole 20 mg PO DAILY 05/19/19 05/19/19 Pregabalin 100 mg PO DAILY 05/19/19 05/19/19 Tamsulosin HCl [Flomax] 0.8 mg PO DAILY 05/19/19 05/19/19 Triazolam 0.25 mg PO DAILY PM 05/19/19 05/19/19 [id number] CD [Cardizem Cd] 180 mg PO DAILY 05/19/19 05/19/19 Ondansetron Odt [Zofran] 4 mg TL Q6H PRN #10 tablet 05/15/21 Promethazine [Phenergan] 25 mg PO Q6H PRN #10 tab 05/15/21 Magnesium Oxide 400 mg PO DAILY #15 tablet 05/25/22 - Allergies Allergies/Adverse Reactions: Allergies Allergy/AdvReac Type Severity Reaction Status Date / Time No Known Drug Allergies Allergy Verified 05/15/21 17:56 - Social History Does the pt smoke?: No Smoking Status: Never smoker Does the pt drink ETOH?: No Does the pt have substance abuse?: No - Immunizations Immunizations are current?: Yes - POLST Patient has POLST: No PD ED PE NORMAL - Vitals Vital signs reviewed: Yes - General General: Alert and oriented X 3, No acute distress, Well developed/nourished - HEENT HEENT: Moist mucous membranes, Pharynx benign, Other (has some tenderness left occipital without local swelling. Left paracervical area tender without deformity. ROM neck guarded with discomfort. ) - Neck Neck: Supple, no meningeal sign, No adenopathy - Cardiac Cardiac: RRR, No murmur - Respiratory Respiratory: No respiratory distress, Clear bilaterally - Abdomen Abdomen: Normal bowel sounds, Soft, Non tender - Male Male : Deferred - Rectal Rectal: Deferred - Back Back: No CVA TTP, No spinal TTP - Derm Derm: Normal color, Warm and dry - Neuro Neuro: Alert and oriented X 3, trading specialist 2-12 intact, No motor deficit, No sensory deficit. No: Normal speech (words are understandable but he has word loss and incomplete sentences at times, with frustration over not getting words out. ) Eye Opening: Spontaneous Motor: Obeys Commands Verbal: Oriented GCS Score: 15 - Psych Psych: Normal mood NIHSS - Level of Consciousness Level of consciousness: (0) Alert, Keenly responsive LOC Questions: (0) Answers both Q's correct LOC Commands: (0) Performs both correctly - Gaze Best Gaze: (0) Normal - Visual Visual: (0) No loss - Facial Palsy Facial Palsy: (0) Normal, symmetrical movement - Motor Arms (both separate) Motor Arm (right): (0) No drift Motor Arm (left): (0) No drift - Motor Legs (both separate) Motor Leg (right): (0) No drift Motor Leg (left): (0) No drift - Limb Ataxia Limb Ataxia: (0) Absent - Sensory Sensory: (0) Normal - Best Language Best Language: (1) [id number] - Dysarthria Dysarthria: (0) Normal - Extinction and Inattention (formally neg Extinction and inattention: (0) No abnormality - Total Score/Results Total Score/Result: 1 Results - Vitals Vitals: Vital Signs - 24 hr 05/25/22 05/25/22 05/25/22 10:49 11:22 12:00 Temperature 36.7 C Heart Rate 91 96 97 Respiratory 18 18 18 Rate Blood Pressure 156/81 H 140/84 H 156/89 H O2 Saturation 100 99 99 05/25/22 05/25/22 05/25/22 12:30 13:30 14:00 Temperature Heart Rate 97 91 102 H Respiratory 17 18 17 Rate Blood Pressure 161/85 H 141/83 H 140/65 H O2 Saturation 99 98 99 05/25/22 05/25/22 05/25/22 14:30 15:00 16:00 Temperature Heart Rate 91 94 75 Respiratory 19 17 18 Rate Blood Pressure 164/86 H 153/87 H 155/70 H O2 Saturation 96 98 99 Oxygen O2 Source Room air - Labs Labs: Laboratory Tests 05/25/22 05/25/22 05/25/22 11:36 11:36 11:36 WBC 10.9 H RBC 4.40 L Hgb 13.5 L Hct 37.7 L MCV 85.7 MCH 30.7 MCHC 35.8 RDW 12.0 Plt Count 209 MPV 11.2 Neut # (Auto) 9.2 H Lymph # (Auto) 1.0 L [place] # (Auto) 0.7 Eos # (Auto) 0.0 Baso # (Auto) 0.0 Absolute Nucleated RBC 0.00 Nucleated RBC % 0.0 Sodium 136 Potassium 3.4 L Chloride 101 Carbon Dioxide 19 L Anion Gap 16.0 H BUN 20 Creatinine 1.0 Estimated GFR (MDRD) 72 L Glucose 259 H Lactic Acid 1.8 Calcium 9.5 Magnesium 1.0 L* Total Bilirubin 1.7 H AST 17 ALT 15 Alkaline Phosphatase 41 L Total Protein 7.6 Albumin 3.9 Globulin 3.7 Albumin/Globulin Ratio 1.1 Lipase 24 Urine Color Urine Clarity Urine pH Ur Specific [place] Urine Protein Urine Glucose (UA) Urine Ketones Urine Occult Blood Urine Nitrite Urine Bilirubin Urine Urobilinogen Ur Leukocyte Esterase Urine RBC Urine WBC Ur Epithelial Cells Ur Squamous Epith Cells Urine Bacteria Ur Microscopic Review Urine Culture Comments Nasal Adenovirus (PCR) Nasal B. parapertussis DNA (PCR) Nasal Coronavir 229E PCR Nasal Coronavir HKU1 PCR Nasal Coronavir NL63 PCR Nasal Coronavir OC43 PCR Nasal Enterovir/Rhinovir PCR Nasal Influenza B PCR Nasal Influenza A PCR Nasal Parainfluen 1 PCR Nasal Parainfluen 2 PCR Nasal Parainfluen 3 PCR Nasal Parainfluen 4 PCR Nasal RSV (PCR) Nasal B.pertussis DNA PCR Nasal C.pneumoniae (PCR) Dylan Human Metapneumo PCR Nasal M.pneumoniae (PCR) Nasal SARS-CoV-2 (PCR) 05/25/22 05/25/22 11:39 11:55 WBC RBC Hgb Hct MCV MCH MCHC RDW Plt Count MPV Neut # (Auto) Lymph # (Auto) [place] # (Auto) Eos # (Auto) Baso # (Auto) Absolute Nucleated RBC Nucleated RBC % Sodium Potassium Chloride Carbon Dioxide Anion Gap BUN Creatinine Estimated GFR (MDRD) Glucose Lactic Acid Calcium Magnesium Total Bilirubin AST ALT Alkaline Phosphatase Total Protein Albumin Globulin Albumin/Globulin Ratio Lipase Urine Color YELLOW Urine Clarity CLEAR Urine pH 6.5 Ur Specific [place] 1.025 Urine Protein 100 H Urine Glucose (UA) 500 H Urine Ketones >=80 H Urine Occult Blood MODERATE H Urine Nitrite NEGATIVE Urine Bilirubin NEGATIVE Urine Urobilinogen 1 (NORMAL) Ur Leukocyte Esterase NEGATIVE Urine RBC 11-25 H Urine WBC 6-10 H Ur Epithelial Cells FEW Renal Tubular Ur Squamous Epith Cells NONE SEEN Urine Bacteria None Seen Ur Microscopic Review INDICATED Urine Culture Comments NOT INDICATED Nasal Adenovirus (PCR) NOT DETECTED Nasal B. parapertussis DNA (PCR) NOT DETECTED Nasal Coronavir 229E PCR NOT DETECTED Nasal Coronavir HKU1 PCR NOT DETECTED Nasal Coronavir NL63 PCR NOT DETECTED Nasal Coronavir OC43 PCR NOT DETECTED Nasal Enterovir/Rhinovir PCR NOT DETECTED Nasal Influenza B PCR NOT DETECTED Nasal Influenza A PCR NOT DETECTED Nasal Parainfluen 1 PCR NOT DETECTED Nasal Parainfluen 2 PCR NOT DETECTED Nasal Parainfluen 3 PCR NOT DETECTED Nasal Parainfluen 4 PCR NOT DETECTED Nasal RSV (PCR) NOT DETECTED Nasal B.pertussis DNA PCR NOT DETECTED Nasal C.pneumoniae (PCR) NOT DETECTED Dylan Human Metapneumo PCR NOT DETECTED Nasal M.pneumoniae (PCR) NOT DETECTED Nasal SARS-CoV-2 (PCR) NOT DETECTED - Rads (name of study) head CT , CTA Radiology: Prelim report reviewed, See rad report (no ICH nor acute focal changes. Age rleated changes. 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 no LVO. ), See rad report cervical spine ct Radiology: Prelim report reviewed, See rad report (no fractures nor acute changes. ) chest xray Radiology: Prelim report reviewed (no acute cardiopulmonary findings.), EMP read indepedently (appears normal in my interpretation. ), See rad report PD Medical Decision Making - ED course Complexity details: reviewed results, re-evaluated patient (CTs did not show any fractures nor acute bleeding. His symptoms are similar though perhaps a little easier to converse. Still showing expressive aphasia. Still no focal weakness.), considered differential (Expressive aphasia with confusion and difficulty walking/off balance. Interestingly the symptoms seem to gradually worsen over several days. No focal weakness. Concern for stroke versus bleed versus tumor or space-occupying process. We will get CT head and CTA. He did fall and is on DOAC too. ), d/w patient, d/w family (spouse - Who gives independent perspective on the patient's symptoms. She states the aphasia is not new for him. She does add that his pain medication was changed about 6 days ago from hydrocodone 4 times a day to methadone.) Drug Therapy Requiring Monitoring for Toxicity: The patient was given doses of magnesium 4 g IV in 2 aliquots. I do not feel the hypomagnesemia was related to his current symptoms of the aphasia or trouble speaking. However could relate to some of the weakness and trouble with balance. Hopefully that will improve some of the symptoms. He was on the monitor during the infusion without any problems. ED course: The patient does not have any acute abnormalities noted on the CT scan and no large vessel occlusion on the CT angio. 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 These are enough to warrant follow-up and evaluation but should not be flow-limiting at this time. MRI was not available at this time. That would help distinguish a small stroke versus potential side effect. I think this would be unusual side effect to the methadone but the timing is appropriate for onset of some trouble speaking and confusion and trouble walking a couple of days after starting methadone. At this point I would have them revert back to the hydrocodone which they do have still in supply at home. I talked with the patient and his about potential hospitalization pending neuro checks and potential MRI in 2 days. However they did not want to stay in the hospital. They asked what the change in treatment would be and since he is already on an aspirin and a DOAC, I do not really see a change in therapy indicated. They said they would prefer to follow-up outpatient with your primary care and see how he does with changing medicines and look at outpatient MRI. This is a reasonable course of treatment and in shared decision the patient was discharged with that intention. Departure - Departure Disposition: 01 Home, Self Care Clinical Impression: Expressive aphasia, Falling episodes, Hypomagnesemia Peripheral neuropathy Qualifiers: Peripheral neuropathy type: polyneuropathy, unspecified Qualified Code(s): G62. 9 - Polyneuropathy, unspecified Condition: Stable Record reviewed to determine appropriate education?: Yes Instructions: Aphasia Follow-Up: Ezra Loredo MD [Provider Admit Priv/Credential] - Prescriptions: Magnesium Oxide 400 mg PO DAILY #15 tablet Comments: The concern with your symptoms as you may have had a small stroke that is not evident on CT scan. The CT today did show that there was no obvious large stroke and no bleeding swelling tumors nor neck fractures. The angiogram (dye study) July of the CT showed some atherosclerotic buildup in the neck arteries of 75%. This is typically not enough to be considered acutely flow-limiting. Your primary care Dr. Loredo will likely want you to consult a specialist to see at what point they would want to intervene or how often to reassess it with ultrasound etc. You had recently changed pain medicine from the hydrocodone to methadone. It would be unlikely that that is giving you these side effects with the trouble speaking but its potentially possible. I would have you switch back from the methadone to your prior hydrocodone dosing for this coming week and see how your symptoms are doing and also follow-up with your primary care. Your magnesium level was low. Your other electrolytes are good. I would suggest a magnesium supplement for the next week or 2. I wrote a prescription for that. Sent to [facility] [place] [place]. Continue otherwise with your baby aspirin and blood thinner medicines. Follow- up with your primary care this coming week, call Friday morning for follow-up. Dr. Loredo's office is usually pretty good of get a new in within a couple of days. They can consider outpatient MRI and any other testing. Return to the ER if worsening. Discharge Date/Time: 05/25/22 16:02
[2022-05-25] MEDS ORDERED: iohexoL-300 100 ML VIAL ONE (11:36)
[2022-05-25 11:51] LABS: BASOPHILS % (AUTO) 0.3 %; EOSINOPHILS % (AUTO) 0.1 %; HCT - HEMATOCRIT 37.7 % (42.0-52.0); HGB - HEMOGLOBIN 13.5 g/dL (14.0-18.0); LYMPHOCYTES % (AUTO) 8.9 %; MEAN CORPUSCULAR HEMOGLOBIN 30.7 pg (27.0-31.0); MEAN CORPUSCULAR HGB CONC 35.8 g/dL (32.0-36.0); MEAN CORPUSCULAR VOLUME 85.7 fL (80.0-94.0); MEAN PLATELET VOLUME 11.2 fL (7.4-11.4); MONOCYTES # (AUTO) 0.7 10^3/uL (0.0-1.0); MONOCYTES % (AUTO) 6.6 %; NEUTROPHILS # (AUTO) 9.2 10^3/uL (1.5-6.6); NEUTROPHILS % (AUTO) 83.8 %; PLT - PLATELET COUNT 209 10^3/uL (130-450); WHITE BLOOD COUNT 10.9 x10^3/uL (4.8-10.8)
[2022-05-25 12:07] LABS: ALBUMIN 3.9 g/dL (3.2-5.5); ALBUMIN/GLOBULIN RATIO 1.1 (1.0-2.2); BILIRUBIN,TOTAL 1.7 mg/dL (0.2-1.0); CALCIUM 9.5 mg/dL (8.5-10.3); POTASSIUM 3.4 mmol/L (3.5-5.0); TOTAL PROTEIN 7.6 g/dL (6.7-8.2)
--- NOTE | 2022-05-25 12:11 | XRAY Report ---
PROCEDURE: Chest 1 View X-Ray INDICATIONS: chest pain TECHNIQUE: One view of the chest was acquired. COMPARISON: None. FINDINGS: Surgical changes and devices: Midline sternotomy wires Lungs and pleura: No pleural effusions or pneumothorax. Lungs are clear. Mediastinum: Mediastinal contours appear normal. Heart size is normal. Atherosclerotic vascular ca lcification noted in the aortic arch. Bones and chest wall: No suspicious bony lesions. Overlying soft tissues appear unremarkable. IMPRESSION: No acute cardiopulmonary findings Reviewed by: Luis Daniels MD on 05/25/2022 11:09 AM [facility] Approved by: Luis Daniels MD on 05/25/2022 11:09 AM [facility] Station ID: [id number]
[2022-05-25 12:32] LABS: BILIRUBIN,URINE NEGATIVE (NEGATIVE); GLUCOSE, URINE (UA) 500 mg/dL (NEGATIVE); KETONES,URINE (UA) >=80 mg/dL (NEGATIVE); LEUKOCYTE ESTERASE, URINE NEGATIVE (NEGATIVE); NITRITE,URINE NEGATIVE (NEGATIVE); OCCULT BLOOD,URINE MODERATE (NEGATIVE); PH,URINE 6.5 PH (5.0-7.5); PROTEIN,URINE 100 mg/dL (NEGATIVE); UROBILINOGEN,URINE 1 (NORMAL) E.U./dL (NORMAL)
[2022-05-25] MEDS ORDERED: MAGNESIUM SULFATE 2 GRAM 2 GM/50 ML BAG IV ONE ×2 (12:33→14:25)
[2022-05-25 12:34] LABS: CLARITY,URINE CLEAR (CLEAR)
[2022-05-25 12:50] LABS: BACTERIA,URINE None Seen /HPF (None Seen); EPITHELIAL CELLS,UR FEW Renal Tubular /HPF (<= Few); SQUAMOUS EPITHELIAL CELL,UR NONE SEEN (<= Few)
--- NOTE | 2022-05-25 13:28 | CT Report ---
PROCEDURE: CT cervical spine without contrast INDICATIONS: fall, neck pain TECHNIQUE: Noncontrast 3 mm thick sections acquired from the skull base to the T4 level. Sagittal and coronal r eformats were then constructed. For radiation dose reduction, the following was used: automated exp osure control, adjustment of mA and/or kV according to patient size. COMPARISON: None. FINDINGS: Image quality: Limited by positioning Bones: No fractures or dislocations. Visualized superior ribs are intact. Degenerative disc space narrowing and facet hypertrophy noted in the lower cervical spine particularly at C6-7. The patient's head is rotated right resulting in C1-2 rotary subluxation, probably physiologic Soft tissues: Prevertebral soft tissues are normal in thickness. No paravertebral hematomas. No ap ical pneumothoraces. IMPRESSION: 1. 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 2. Evaluation of C1-2 articulation is limited by patient positioning Reviewed by: Luis Daniels MD on 05/25/2022 12:27 PM [facility] Approved by: Luis Daniels MD on 05/25/2022 12:27 PM [facility] Station ID: [id number]
--- NOTE | 2022-05-25 13:35 | CT Report ---
PROCEDURE: CT angiogram head with contrast, CT brain without contrast INDICATIONS: aphasia/confused CONTRAST: 80ml omni 300 TECHNIQUE: Precontrast 4.5 mm thick angled axial sections acquired from the foramen magnum to the vertex. Afte r the administration of intravenous contrast, 1 mm thick sections acquired through the [place] of [place] is. Postcontrast 4.5 mm thick sections then re-acquired from the foramen magnum to the vertex. maxi zog-ragexkmbc-nyrjtlgiuk (MIP) were acquired of the central intracranial vasculature. For radiation dose reduction, the following was used: automated exposure control, adjustment of mA and/or kV accor ding to patient size. COMPARISON: None FINDINGS: Image quality: Limited by patient positioning. Anterior circulation: Intracranial internal carotid arteries are normal in size and flow. Sclerotic vascular calcification noted in the cavernous segments of both ICA The flow within the paired anteri or cerebral arteries is normal and symmetric. The flow within the middle cerebral arteries is normal and symmetric. The anterior communicating artery is seen. No aneurysms are seen. Posterior circulation: Left vertebral artery dominance. Diminutive right vertebral artery terminates in the posterior inferior cerebellar artery. Normal basilar artery present. Dense coronary vascular c alcification noted in the intradural segments of both vertebral arteries. Flow within the posterior cerebral arteries is normal and symmetric. No aneurysms are seen. CSF spaces: Ventricles are normal in size and shape. Basal cisterns are patent. No extra-axial flu id collections. Brain: No midline shift. No intracranial bleeds or masses. Valero-white matter interface appears int act. Atrophy and chronic ischemic change Skull and face: Calvarium and facial bones appear intact, without suspicious lesions. Sinuses: Visualized sinuses and mastoids are clear. IMPRESSION: Atherosclerotic vascular calcification without significant stenosis, large vessel occlusion or aneury sm. Atrophy and chronic ischemic change without intracranial hemorrhage or mass effect. Reviewed by: Luis Daniels MD on 05/25/2022 12:34 PM [place] Approved by: Luis Daniels MD on 05/25/2022 12:34 PM [place] Station ID: [id number]
[2022-05-25 13:44] LABS: CORONAVIRUS 229E-RESP PCR NOT DETECTED; CORONAVIRUS HKU1-RESP PCR NOT DETECTED; CORONAVIRUS NL63-RESP PCR NOT DETECTED; CORONAVIRUS OC43-RESP PCR NOT DETECTED; HUMAN METAPNEUMOVIRUS NOT DETECTED; INFLUENZA A- RESP PCR PANEL NOT DETECTED; RHINOVIRUS/ENTEROVIRUS NOT DETECTED; SARS-CoV-2 -RESP PCR PANEL NOT DETECTED
[2022-05-25 13:45] LABS: B. PARAPERTUSSIS- RESP PCR PAN NOT DETECTED; B. PERTUSSIS- RESP PCR PANEL NOT DETECTED; C. PNEUMONIAE- RESP PCR PANEL NOT DETECTED; INFLUENZA B - RESP PCR PANEL NOT DETECTED; M. PNEUMONIAE- RESP PCR PANEL NOT DETECTED; PARAINFLUENZA VIRUS 1 NOT DETECTED; PARAINFLUENZA VIRUS 2 NOT DETECTED; PARAINFLUENZA VIRUS 3 NOT DETECTED; PARAINFLUENZA VIRUS 4 NOT DETECTED; RSV- RESP PCR PANEL NOT DETECTED
--- NOTE | 2022-05-25 13:47 | CT Report ---
PROCEDURE: CT angiogram neck with contrast INDICATIONS: aphasia confused 3 days CONTRAST: 80ml omni 300 TECHNIQUE: After the administration of intravenous contrast, 1.5 mm axial sections acquired from the aortic arch to the [place] of [place]. maximum intensity projection (MIP) were then performed. For radiation dos e reduction, the following was used: automated exposure control, adjustment of mA and/or kV accordin g to patient size. COMPARISON: None. FINDINGS: Image quality: Excellent. Carotid system: The great vessels demonstrate a conventional anatomy as they arise from the aortic a [facility]. The origins of the common carotid arteries appear patent. The common carotid arteries demonstr ate normal calibers and courses. Calcified and noncalcified sclerotic plaque in both proximal interna l carotid arteries results in 30% stenosis on the left and 75% stenosis on the right utilizing NASCET criteria. Posterior circulation: The origins of the vertebral arteries appear patent. The more superior porti ons of the vertebral arteries demonstrate normal course and caliber. Soft tissues: Visualized neck soft tissues demonstrate no suspicious abnormalities. The thyroid is normal in size and there are no incidental findings. Bones: No suspicious bony lesions. Visualized cervical spine appears normally aligned. IMPRESSION: Calcified and noncalcified atherosclerotic plaque in both proximal internal carotid arteries results in 75% stenosis on the right utilizing NASCET criteria. The estimate of stenosis included in the report of the imaging study was calculated using the NASCET method Reviewed by: Luis Daniels MD on 05/25/2022 12:46 PM AKST Approved by: Luis Daniels MD on 05/25/2022 12:46 PM AKST Station ID: [id number]
[2022-05-25] MEDS ORDERED: ONDANSETRON 4 MG/2 ML VIAL IVP STA (14:25)
[2022-05-25] MEDS ORDERED: HYDROcod/ACETAM 5/325 MG TABLET PO STA (14:26)
[2022-05-25] MEDS ORDERED: HYDROmorphone 0.5 MG/0.5 ML SYRINGE IVP STA (14:26)
[2022-05-25 16:02] VITALS: BP 155/70
[2022-05-25] MEDS ORDERED: iohexoL-300 100 ML VIAL IVP ONE (16:18)
== END 2022-05-25 16:02 | disposition home or self-care (01) ==
LOC: EDUNIT# → ED 10:35
DX: E83.42 Hypomagnesemia (principal); R47.01 Aphasia; R29.6 Repeated falls; E11.40 Type 2 diabetes mellitus with diabetic neuropathy, unspecified; Z20.822 Contact with and (suspected) exposure to COVID-19
CPT/HCPCS: 36415; 51701; 70496; 70498; 71045; 72125; 80053; 81001; 83605; 83690; 83735; 85025; 87633; 96365; 96366; 96375; 99284; 99285; A9270; J1170; Q9967; 81003; 87086

== ENCOUNTER 2022-07-31 19:26 | Outpatient (CLI) | payer MEDICARE, OTHER | END 2022-07-31 19:27 | disposition critical access hospital (66) | LOC: EMS 19:26 | DX: R47.1 Dysarthria and anarthria (principal); R47.81 Slurred speech; R41.0 Disorientation, unspecified; R45.1 Restlessness and agitation; I48.91 Unspecified atrial fibrillation; Z79.01 Long term (current) use of anticoagulants | CPT/HCPCS: A0425; A0429 ==

== ENCOUNTER 2022-07-31 19:29 | Emergency (ER) | payer MEDICARE, OTHER ==
--- NOTE | 2022-07-31 19:42 | ED Physician Documentation ---
PD HPI FOCAL NEURO - Stated complaint Stated Complaint: AMS - History obtained from History obtained from: Patient, EMS - Additional information Additional information: 82-year-old gentleman on Eliquis, has a sternotomy scar he does not know why. Brought in by ambulance. Most of the history is from EMS as the patient is confused. The is supposedly following the patient, but is not here on initial arrival. Reportedly has had word finding difficulties and confusion all day. Had a similar episode and was seen here in early May. He had 75% bilateral carotid disease. He was hypomagnesemic at the time as well. PD PAST MEDICAL HISTORY - Past Medical History Cardiovascular: Hypertension, High cholesterol, Coronary artery disease Respiratory: None Neuro: CVA Endocrine/Autoimmune: Type 2 diabetes GI: None : None HEENT: None Psych: None Musculoskeletal: Osteoarthritis Derm: None - Past Surgical History Past Surgical History: Yes General: Cholecystectomy Cardiovascular: Coronary stent HEENT: Tonsil/Adenoidectomy - Present Medications Home Medications: Ambulatory Orders Medication Instructions Recorded Confirmed Atorvastatin [Lipitor] 40 mg PO DAILY 05/19/19 05/19/19 HYDROcod/ACETAM 5/325 [[place] 5/325] 1.5 tab PO TID 05/19/19 05/19/19 Lisinopril [Zestril] 40 mg PO DAILY 05/19/19 05/19/19 Omeprazole 20 mg PO DAILY 05/19/19 05/19/19 Pregabalin 100 mg PO DAILY 05/19/19 05/19/19 Tamsulosin HCl [Flomax] 0.8 mg PO DAILY 05/19/19 05/19/19 Triazolam 0.25 mg PO DAILY PM 05/19/19 05/19/19 diltiaZEM CD [Cardizem Cd] 180 mg PO DAILY 05/19/19 05/19/19 Ondansetron Odt [Zofran] 4 mg TL Q6H PRN #10 tablet 05/15/21 Promethazine [Phenergan] 25 mg PO Q6H PRN #10 tab 05/15/21 Magnesium Oxide 400 mg PO DAILY #15 tablet 05/25/22 - Allergies Allergies/Adverse Reactions: Allergies Allergy/AdvReac Type Severity Reaction Status Date / Time No Known Drug Allergies Allergy Verified 05/15/21 17:56 - Social History Does the pt smoke?: No Smoking Status: Never smoker Does the pt drink ETOH?: No Does the pt have substance abuse?: No - Immunizations Immunizations are current?: Yes - POLST Patient has POLST: No PD ED PE NORMAL - Vitals Vital signs reviewed: Yes - General General: Other (He is alert, oriented to person and place but not time or events. When asked him the year he says 1948. When I ask him where he grew up he cannot come up with it.) - HEENT HEENT: PERRL, EOMI - Neck Neck: Supple, no meningeal sign, No bony TTP - Cardiac Cardiac: Other (Rapid and irregular without murmur, well-healed sternotomy scar.) - Respiratory Respiratory: No respiratory distress, Clear bilaterally - Abdomen Abdomen: Normal bowel sounds, Soft, Non tender - Back Back: No CVA TTP, No spinal TTP - Derm Derm: Normal color, Warm and dry - Extremities Extremities: No edema, No calf tenderness / cord - Neuro Neuro: No motor deficit, No sensory deficit Eye Opening: Spontaneous Motor: Obeys Commands Verbal: Confused GCS Score: 14 NIHSS - Time Time: 19:35 - Level of Consciousness Level of consciousness: (0) Alert, Keenly responsive LOC Questions: (2) Answers neither correct LOC Commands: (0) Performs both correctly - Gaze Best Gaze: (0) Normal - Visual Visual: (0) No loss - Facial Palsy Facial Palsy: (0) Normal, symmetrical movement - Motor Arms (both separate) Motor Arm (right): (0) No drift Motor Arm (left): (0) No drift - Motor Legs (both separate) Motor Leg (right): (0) No drift Motor Leg (left): (0) No drift - Limb Ataxia Limb Ataxia: (0) Absent - Sensory Sensory: (0) Normal - Best Language Best Language: (1) [id number] - Dysarthria Dysarthria: (0) Normal - Extinction and Inattention (formally neg Extinction and inattention: (0) No abnormality - Total Score/Results Total Score/Result: 3 Results - Vitals Vitals: Vital Signs - 24 hr 07/31/22 07/31/22 19:45 19:50 Temperature 37.0 C Heart Rate 130 H 140 H Respiratory 16 19 Rate Blood Pressure 124/91 H 172/105 H O2 Saturation 96 97 Oxygen O2 Source Room air - EKG (time done) 1936 EKG releavant findings:: EKG personally interpreted by author of this note. Relevant findings are: Rate: Rate (enter#) (133) Rhythm: Atrial fibrillation Intervals: Other (LAFB) Ischemia: ST depression (lateral d/t rate) Computer interpretation: Agree with computer - Labs Labs: Laboratory Tests 07/31/22 07/31/22 07/31/22 19:49 19:49 19:49 WBC 9.6 RBC 4.57 L Hgb 13.3 L Hct 38.6 L MCV 84.5 MCH 29.1 MCHC 34.5 RDW 12.6 Plt Count 223 MPV 9.7 Neut # (Auto) 8.5 H Lymph # (Auto) 0.7 L [place] # (Auto) 0.4 Eos # (Auto) 0.0 Baso # (Auto) 0.0 Absolute Nucleated RBC 0.00 Nucleated RBC % 0.0 PT 13.6 H INR 1.2 Sodium 136 Potassium 3.3 L Chloride 100 L Carbon Dioxide 20 L Anion Gap 16.0 H BUN 17 Creatinine 1.0 Estimated GFR (MDRD) 72 L Glucose 329 H Calcium 9.9 Magnesium 1.1 L Total Bilirubin 0.9 AST 25 ALT 18 Alkaline Phosphatase 60 Total Protein 8.2 Albumin 4.2 Globulin 4.0 Albumin/Globulin Ratio 1.1 Lipase 30 - Rads (name of study) CTAhead/neck Relevant Findings:: Final report received (CT angiography of the head neck demonstrates severe plaque at both carotid bulbs with right greater than 70% stenosis and left at 50 to 69%. No LVO. Unchanged diminutive flow in the right V4 vertebral artery), EMP independent interpretation of test PD Medical Decision Making - ED course ED course: 82-year-old gentleman presents with acute confusion, differential diagnosis would include any cause of encephalopathy versus stroke. He is not a candidate for tPA for multiple reasons including but not limited to the timeframe of his confusion and being on Eliquis. He is also noted to be in A-fib with RVR. His examination did not exchange mechanic the first couple of hours remaining confused somewhat agitated. He has no meningismus. His work-up demonstrates no large vessel occlusion or clear abnormality on his CT other than known carotid stenoses. Chemistry panel is notable for hyperglycemia and modest hypomagnesemia. CBC grossly normal as is his INR. I spoke with the by phone. She is not here as she does not drive at night but plans to come in in the morning. Plan to keep him here for MRI and take down some of his polypharmacy. does note that he does not drink, but smokes "a lot of pot." He will be boarding in the emergency department pending admission as the hospital is currently full. Departure - Departure Disposition: 66 [facility] DC/Xfer Clinical Impression: Atrial fibrillation with RVR, Expressive aphasia, Hypomagnesemia, Encephalopathy, Adequate anticoagulation on anticoagulant therapy Condition: Serious
[2022-07-31] MEDS ORDERED: iohexoL-300 100 ML VIAL ONE (19:46)
[2022-07-31 19:54] LABS: BASOPHILS % (AUTO) 0.2 %; EOSINOPHILS % (AUTO) 0.1 %; HCT - HEMATOCRIT 38.6 % (42.0-52.0); HGB - HEMOGLOBIN 13.3 g/dL (14.0-18.0); LYMPHOCYTES # (AUTO) 0.7 10^3/uL (1.5-3.5); LYMPHOCYTES % (AUTO) 7.3 %; MEAN CORPUSCULAR HEMOGLOBIN 29.1 pg (27.0-31.0); MEAN CORPUSCULAR HGB CONC 34.5 g/dL (32.0-36.0); MEAN CORPUSCULAR VOLUME 84.5 fL (80.0-94.0); MEAN PLATELET VOLUME 9.7 fL (7.4-11.4); MONOCYTES # (AUTO) 0.4 10^3/uL (0.0-1.0); NEUTROPHILS # (AUTO) 8.5 10^3/uL (1.5-6.6); PLT - PLATELET COUNT 223 10^3/uL (130-450); RED BLOOD COUNT 4.57 10^6/uL (4.70-6.10); RED CELL DISTRIBUTION WIDTH 12.6 % (12.0-15.0); WHITE BLOOD COUNT 9.6 x10^3/uL (4.8-10.8)
[2022-07-31] MEDS ORDERED: diltiaZEM INJ 5 MG/ML VIAL IVP STA ×2 (19:54→21:07)
[2022-07-31 20:02] LABS: INR 1.2 (0.8-1.2); PT - PROTHROMBIN TIME 13.6 secs (9.9-12.6)
[2022-07-31 20:11] LABS: ALBUMIN 4.2 g/dL (3.2-5.5); ALBUMIN/GLOBULIN RATIO 1.1 (1.0-2.2); BILIRUBIN,TOTAL 0.9 mg/dL (0.2-1.0); CALCIUM 9.9 mg/dL (8.5-10.3); MAGNESIUM 1.1 mg/dL (1.7-2.8); POTASSIUM 3.3 mmol/L (3.5-5.0); TOTAL PROTEIN 8.2 g/dL (6.7-8.2)
--- NOTE | 2022-07-31 20:34 | CT Report ---
PROCEDURE: ANGIO HEAD W/WO INDICATIONS: cva sx CONTRAST: 80mL Omni 300 TECHNIQUE: Precontrast 4.5 mm thick angled axial sections acquired from the foramen magnum to the vertex. Afte r the administration of intravenous contrast, 1 mm thick sections acquired through the [place] of [place] is. Postcontrast 4.5 mm thick sections then re-acquired from the foramen magnum to the vertex. 3-di mensional pahzglu-ymrgjgqgr-umnexhroia (MIP) and/or volume rendering reformats were acquired of the c entral intracranial vasculature. For radiation dose reduction, the following was used: automated ex posure control, adjustment of mA and/or kV according to patient size. COMPARISON: CTA head and neck 05/25/2022. FINDINGS: Image quality: Good. Anterior circulation: Intracranial internal carotid arteries are normal in size and flow. Aplastic r ight A1 segment CHERYL. Flow in the anterior communicating artery is patent. Flow in the CHERYL is patent. The flow within the middle cerebral arteries is normal and symmetric. No aneurysms are seen. Posterior circulation: Diminished flow in the V4 right vertebral artery, unchanged. Dense atheroscler otic plaque. Likely terminating in PICA. Basilar artery is patent. Flow within the posterior cerebral arteries is normal and symmetric. No aneurysms are seen. CSF spaces: Ventricles are normal in size and shape. Basal cisterns are patent. No extra-axial flu id collections. Brain: No midline shift. No intracranial bleeds or masses. No area of hypodensity in a vascular di stribution to suggest acute infarction. There is periventricular hypodensity consistent with chronic microvascular ischemic disease. Age-related parenchymal loss. Skull and face: Calvarium and facial bones appear intact, without suspicious lesions. Sinuses: Mild costal thickening in the left maxillary sinus. Mastoids are clear. IMPRESSION: 1. No acute intracranial hemorrhage. No acute infarct is identified. 2. No large vessel occlusion. 3. Unchanged diminutive flow in the right V4 vertebral artery which likely terminates as PICA. Hypopl astic A1 segment of the CHERYL, unchanged. Reviewed by: Tim Hankins MD on 07/31/2022 8:32 PM PDT Approved by: Tim Hankins MD on 07/31/2022 8:32 PM PDT Station ID: [id number]
--- NOTE | 2022-07-31 20:40 | CT Report ---
PROCEDURE: ANGIO NECK W INDICATIONS: cva sx CONTRAST: 80mL Omni 300 TECHNIQUE: After the administration of intravenous contrast, 1.5 mm axial sections acquired from the aortic arch to the [place] of [place]. Coronal 3-D maximum intensity projection (MIP) and/or volume rendering ref ormats were then performed. For radiation dose reduction, the following was used: automated exposur e control, adjustment of mA and/or kV according to patient size. COMPARISON: CT angiogram neck 05/25/2022. FINDINGS: Image quality: Excellent. Carotid system: The great vessels demonstrate a conventional anatomy as they arise from the aortic a rc. The origins of the common carotid arteries appear patent. The common carotid arteries demonstr ate calibers and courses. Calcified plaque in the distal right CCA. Severe plaque at the bilateral c arotid bulb. Right ICA greater than 70% stenosis. Left ICA 50-69% stenosis. The internal carotid gisel keyla demonstrate normal caliber and course. Posterior circulation: The origins of the vertebral arteries appear patent. The more superior porti ons of the vertebral arteries demonstrate normal course and caliber. They join to form a normal appe aring basilar artery. Soft tissues: Visualized neck soft tissues demonstrate no suspicious abnormalities. The thyroid is normal in size and there are no incidental findings. Bones: No suspicious bony lesions. Mild degenerative change in the cervical spine. Visualized cervi pallavi spine appears normally aligned. IMPRESSION: 1. No acute occlusion. 2. Severe plaque at the carotid bulbs bilaterally. Right ICA greater than 70% stenosis. Left ICA 50-6 9% stenosis. Consider carotid Doppler for further characterization. The estimate of stenosis included in the report of the imaging study was calculated using the NASCET method Reviewed by: Tim Hankins MD on 07/31/2022 8:39 PM PDT Approved by: Tim Hankins MD on 07/31/2022 8:39 PM PDT Station ID: [id number]
[2022-07-31] MEDS ORDERED: MAGNESIUM SULFATE 2 GRAM 2 GM/50 ML BAG IV ONE (21:04)
[2022-07-31] MEDS ORDERED: iohexoL-300 100 ML VIAL IVP ONE (21:20)
[2022-07-31 21:21] LABS: ACETAMINOPHEN < 10 ug/mL (10-30); ETOH - ETHANOL < 5.0 mg/dL; SALICYLATE < 6.0 mg/dL
[2022-07-31] MEDS: diltiaZEM CD 120 MG CAPSULE PO SCH (21:40)
[2022-07-31 21:47] LABS: MUDS CUTOFF CONCENTRATIONS CUTOFF CONC BELOW:
[2022-07-31] MEDS ORDERED: ONDANSETRON 4 MG/2 ML VIAL IVP PRN (21:54)
[2022-07-31] MEDS ORDERED: ACETAMINOPHEN 500 MG TABLET PO PRN (21:54)
[2022-07-31] MEDS ORDERED: METOPROLOL 5 MG/5 ML VIAL IVP STA (21:54)
[2022-07-31 22:00] LABS: AMPHETAMINE SCREEN,URINE NEGATIVE (NEGATIVE); BARBITURATE SCREEN,UR NEGATIVE (NEGATIVE); BENZODIAZEPINES SCREEN, URINE NEGATIVE (NEGATIVE); COCAINE SCREEN URINE NEGATIVE (NEGATIVE); METHADONE SCREEN, URINE POSITIVE (NEGATIVE); METHAMPHETAMINES SCREEN, URINE NEGATIVE (NEGATIVE); OPIATE SCREEN, URINE NEGATIVE (NEGATIVE); OXYCODONE SCREEN, URINE NEGATIVE (NEGATIVE); PROPOXYPHENE SCREEN, URINE NEGATIVE (NEGATIVE); THC CANNABINOID SCREEN, URINE POSITIVE (NEGATIVE); TRICYCLIC ANTIDEPRESSANT,URINE NEGATIVE (NEGATIVE)
[2022-07-31] MEDS ORDERED: LORazepam 2 MG/ML VIAL IVP STA (22:49)
[2022-08-01] MEDS ORDERED: ONDANSETRON 4 MG/2 ML VIAL IVP STA ×2 (00:46→12:28)
[2022-08-01] MEDS ORDERED: LORazepam 2 MG/ML VIAL IVP STA (00:51)
[2022-08-01 05:44] LABS: BASOPHILS % (AUTO) 0.1 %; EOSINOPHILS % (AUTO) 0.1 %; HCT - HEMATOCRIT 39.6 % (42.0-52.0); HGB - HEMOGLOBIN 13.6 g/dL (14.0-18.0); LYMPHOCYTES # (AUTO) 1.5 10^3/uL (1.5-3.5); LYMPHOCYTES % (AUTO) 14.2 %; MEAN CORPUSCULAR HEMOGLOBIN 29.2 pg (27.0-31.0); MEAN CORPUSCULAR HGB CONC 34.3 g/dL (32.0-36.0); MEAN PLATELET VOLUME 9.2 fL (7.4-11.4); MONOCYTES # (AUTO) 0.8 10^3/uL (0.0-1.0); MONOCYTES % (AUTO) 7.3 %; NEUTROPHILS # (AUTO) 8.4 10^3/uL (1.5-6.6); NEUTROPHILS % (AUTO) 77.9 %; PLT - PLATELET COUNT 216 10^3/uL (130-450); RED BLOOD COUNT 4.66 10^6/uL (4.70-6.10); RED CELL DISTRIBUTION WIDTH 12.8 % (12.0-15.0); WHITE BLOOD COUNT 10.8 x10^3/uL (4.8-10.8)
[2022-08-01 05:52] LABS: CALCIUM 9.8 mg/dL (8.5-10.3); CREATININE 1.1 mg/dL (0.6-1.2); POTASSIUM 3.2 mmol/L (3.5-5.0)
[2022-08-01] MEDS: PANTOPRAZOLE 40 MG TABLET PO SCH (06:41)
[2022-08-01] MEDS ORDERED: POTASSIUM CHLORIDE 20 MEQ TABLET PO STA ×2 (07:56→11:55)
[2022-08-01] MEDS ORDERED: SODIUM CHLORIDE 0.9% 1,000 ML IV STA ×2 (08:00→18:37)
--- NOTE | 2022-08-01 08:03 | ED Physician Documentation ---
ED Addendum - Addendum Addendum: 08/01/22 08:00 82-year-old Tulio Maynard has been brought to the emergency department for confusion and weakness with some difficulty speaking. Patient has a history of atrial fibrillation on Eliquis and a history of hypertension and type 2 diabetes. He indicates that he gets up several times per night to go to the bathroom. I interrogated the patient's inferior vena cava with POCUS and found his vessel be 0.82 cm consistent with a fluid deficit of greater than 2 L. IV saline is begun. 08/01/22 13:38 Patient was kept in the emergency department overnight for brain MRI and admission to the hospital which was full last night. MRI brain:Impression: Moderate atrophy and multifocal white matter chronic ischemic change without acute infarct, hemorrhage or mass lesion. 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 carotid doppler: Impression: 1. In the right internal carotid artery, there is nearly 69% stenosis based on peak systolic velocity criteria. 2. In the left internal carotid artery, there is about 50% stenosis based on peak systolic velocity criteria. 3. Antegrade flow within the right vertebral artery 4. Antegrade flow within the left vertebral artery. 08/01/22 17:11 08/01/22 17:14 08/01/22 17:32 After all studies were completed I spoke with the patient's vascular surgeon Dr. Petit at [facility] he reviewed our studies here and recommended the patient follow-up with him this week either by televisit or personal visit in [place]. He recommended adequate hydration.The patient has no evidence of CVA on his MRI. He does have carotid disease in all 4 vessels and significant disease in the right. He is at risk from any low flow state. He currently appears confused and does not feel like he can get up and walk. He does not want to leave the hospital. He does vacillate on this. I have asked the patient to stay in the hospital overnight for continued hydration at a slower rate and potential discharge from the emergency department tomorrow to follow-up with his surgeon in the coming week. 08/01/22 18:34 At shift change we do not have a bed available for Mr. Maynard. His care is turned over to the on shift ED MD. He does not feel that he can get up and go home and we will keep him in the emergency department overnight continue hydration at a slower rate. We are anticipating some improvement and potential discharge to home from the emergency department. Follow-up with Dr. Petit his vascular surgeon and close monitoring for dehydration 08/01/22 18:35
[2022-08-01] MEDS: ATORVASTATIN 40 MG TABLET PO SCH (08:48)
[2022-08-01] MEDS: APIXABAN 5 MG TABLET PO SCH ×2 (08:48→20:57)
[2022-08-01] MEDS: diltiaZEM CD 120 MG CAPSULE PO SCH ×2 (08:58→20:57)
--- NOTE | 2022-08-01 13:34 | MRI Report ---
PROCEDURE: MRI brain without contrast INDICATIONS: 82-year-old male with confusion x3 days TECHNIQUE: Noncontrast axial T1 spin echo, axial T2 fast spin echo, sagittal and axial FLAIR, coronal T2 fast sp in echo, axial gradient echo, axial diffusion and ADC through the brain. COMPARISON: None. FINDINGS: Image quality: Excellent. CSF Spaces: Basal cisterns are patent. No extra-axial fluid collections. Ventricles are normal in size and shape. Brain: No intracranial masses or hemorrhage. [place]/white matter interface is normal. Brainstem appe ars normal. Diffusion-weighted images demonstrate no acute infarct. Normal intravascular flow voids are present. Atrophy and chronic ischemic change noted. 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 Skull and face: Calvarium has normal marrow signal. Orbits appear normal. Sinuses: Sinuses and mastoids are clear other than 9 mm left maxillary sinus retention cyst. IMPRESSION: Moderate atrophy and multifocal white matter chronic ischemic change without acute infarct, hemorrhag e or mass lesion. 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
--- NOTE | 2022-08-01 17:07 | Ultrasound Report ---
PROCEDURE: Carotid Doppler Complete INDICATIONS: altered mentation, stenosis on CT. TECHNIQUE: Color and pulse Doppler interrogation was performed of both carotid systems, with image documentation and velocity measurements. COMPARISON: CT head and neck 07/31/2022 FINDINGS: Challenging exam secondary to patient motion Right side: Brachial blood pressure: 148/77 mm Hg. Common carotid artery peak systolic velocity: 79 cm/sec. Internal carotid artery peak systolic velocity: 220 cm/sec. Internal carotid artery end diastolic velocity: 23 cm/sec. External carotid artery peak systolic velocity: 190 cm/sec. ICA/CCA peak systolic ratio: 2.8 . Valero scale imaging description: Heavy calcified plaque at the right carotid bulb causing moderate to severe subjective luminal stenosis. There is coarse shadowing plaque at the right ICA origin present ing visualization of the underlying lumen. There is spectral broadening of the proximal ICA waveform. Percent internal carotid artery stenosis: 50-69%, closer to 69%. . Vertebral artery: Flow direction is antegrade. Left side: Brachial blood pressure: 139/79 mm Hg. Common carotid artery peak systolic velocity: 112 cm/sec. Internal carotid artery peak systolic velocity: 155 cm/sec. Internal carotid artery end diastolic velocity: 22 cm/sec. External carotid artery peak systolic velocity: 255 cm/sec. ICA/CCA peak systolic ratio: 1.4 . Valero scale imaging description: Moderate to heavy plaque at the left carotid bulb and in the common carotid artery. There is a focal stenosis of the left ECA origin and left ICA origin causing spectral broadening of the distal waveform. Percent internal carotid artery stenosis: Approximately 50% . Vertebral artery: Flow direction is antegrade. IMPRESSION: 1. In the right internal carotid artery, there is nearly 69% stenosis based on peak systolic velocity criteria. 2. In the left internal carotid artery, there is about 50% stenosis based on peak systolic velocity c riteria. 3. Antegrade blood flow within the right vertebral artery. 4. Antegrade blood flow within the left vertebral artery. The estimate of stenosis included in the report of the imaging study was calculated using the IAC-end orsed standards of carotid artery stenosis. Reviewed by: Delilah Bean MD on 08/01/2022 5:05 PM PDT Approved by: Delilah Bean MD on 08/01/2022 5:05 PM PDT Station ID: [id number]
[2022-08-01] MEDS ORDERED: QUEtiapine 25 MG TABLET PO STA (20:06)
[2022-08-02] MEDS: PANTOPRAZOLE 40 MG TABLET PO SCH (06:42)
[2022-08-02] MEDS: ATORVASTATIN 40 MG TABLET PO SCH (07:32)
[2022-08-02] MEDS: APIXABAN 5 MG TABLET PO SCH (07:32)
[2022-08-02] MEDS: diltiaZEM CD 120 MG CAPSULE PO SCH (07:32)
--- NOTE | 2022-08-02 09:59 | ED Physician Documentation ---
ED Addendum - Addendum Addendum: 08/02/22 09:51 The patient was signed out to me at change of shift by Dr. Hicks, pending reevaluation and final disposition after presenting to the emergency department with word finding difficulties. Extensive work-up was undertaken including CT/CTA of the head and neck, MRI, and carotid Doppler. The patient also had laboratory studies performed and drug screen. The patient was found to be positive for methadone and marijuana, both of which she is known to take, and was found to have ischemic white matter disease, but otherwise, work-up was negative. I was informed that nobody had seen the patient's significant other in the emergency department since the patient has been here, though Dr. Moore did report having a phone conversation with her when the patient first came to the emergency department. I did go and evaluate the patient, who still was Having trouble expressing himself and had been incontinent of urine in the bed, but seem to have good insight and understanding. The patient did not have any focal neurologic deficits physically, and had been able to stand at the bedside and ambulate with a walker. The patient's significant other actually did come to the emergency department shortly after that and I had a lengthy conversation with both her and the patient. The significant other reported that the patient actually had a similar episode back in early May and at that time, had word finding difficulties as well. Extensive work-up ensued and the cause of the episode was unclear. The patient had fairly recently before that been switched from hydrocodone to methadone and it was not clear if this was the cause as the methadone seemed to work better for the pain but did cause a little more sedation in the patient. The patient was discharged back home and significant other noticed that he had a lot more falls for couple weeks and mostly just stayed in bed. His appetite had also been declining and seem to especially decline after that episode as well. The patient did finally regain his speech and did start getting out of bed a bit more, but was quite deconditioned and was not able to walk his dog for 2 or 3 miles like he had been doing prior to the May episode. His significant other states that he does get up and walk around the house but that mostly, he is either sitting or laying in bed. The patient states he does not really feel interested in food and there is nothing he can think of that would make him really want to eat. The significant other cannot think of any triggering event for the current episode. The patient has not taken more of his medication than usual and has not been smoking any more marijuana than he normally does. He has not been ill with anything recently. No head trauma. The significant other states that even on the day that he began to have the word finding difficulties, he was still able to ambulate as usual. I did offer, in light of the decreased activity at home and obvious deconditioning, to have the patient and his talk to health care social worker but they declined. His significant other stated that she was fine taking him home as long as he can still get up to the bathroom. We did do a formal walk test with the patient who did very well with this. He does have a walker at home, though he does not like to use it. We have discussed that it would be a good idea for him to use the walker if he is feeling unsteady. I have also discussed with him that it is very important that they follow-up with the patient's primary doctor who may have seen since the previous episode like this in May. I have encouraged them to talk to Dr. Loredo about their concerns about the patient's appetite and also, about the possibility of PT OT if they think this would be helpful. I have advised perhaps trying a nutrient rich liquid solution such as Ensure if the patient does not feel like tackling a more complex meal. We have discussed the usual indications for return. Final impression: See original note Disposition: Home in stable condition.
[2022-08-02 10:11] VITALS: BP 174/98
== END 2022-08-02 10:15 | disposition home or self-care (01) ==
LOC: EDUNIT# → ED 19:29
DX: R47.01 Aphasia (principal); Z79.01 Long term (current) use of anticoagulants; I48.91 Unspecified atrial fibrillation; I65.23 Occlusion and stenosis of bilateral carotid arteries; I10 Essential (primary) hypertension; E11.9 Type 2 diabetes mellitus without complications; R29.6 Repeated falls
CPT/HCPCS: 36415; 70496; 70498; 70551; 80048; 80053; 80306; 80307; 83690; 83735; 84443; 85025; 85610; 93005; 93880; 96361; 96365; 96375; 96376; 99285; A9270; G0480; J2060; Q9967; 80320; 80329

== ENCOUNTER 2022-10-01 12:22 | Outpatient (CLI) | payer MEDICARE, OTHER ==
--- NOTE | 2022-10-01 16:36 | XRAY Report ---
PROCEDURE: Knee 3 View RT INDICATIONS: RIGHT KNEE PAIN TECHNIQUE: 3 views of the right knee(s) were acquired. COMPARISON: None. FINDINGS: Bones: No fractures or dislocations. No suspicious bony lesions. Moderate medial compartment osteoa rthritic degenerative change with mild joint space narrowing and marginal osteophytosis. Mild lateral compartment and patellofemoral compartment osteoarthritis with marginal osteophytosis. Soft tissues: No knee joint effusion. No suspicious soft tissue calcifications or masses. IMPRESSION: Right knee tricompartmental osteoarthritis. Reviewed by: Colette Goss MD, PhD on 10/01/2022 4:34 PM PDT Approved by: Colette Goss MD, PhD on 10/01/2022 4:34 PM PDT Station ID: [id number]
== END 2022-10-01 12:23 | disposition home or self-care (01) ==
LOC: DI 12:22
PROVIDERS: ATTEND Nurse Practitioner Family
DX: M17.11 Unilateral primary osteoarthritis, right knee (principal)

== ENCOUNTER 2023-01-26 08:52 | Outpatient (CLI) | payer MEDICARE, OTHER ==
--- NOTE | 2023-01-26 14:30 | Ultrasound Report ---
PROCEDURE: Bladder INDICATIONS: Recurring UTI TECHNIQUE: Real-time scanning was performed of the bladder, with image documentation. COMPARISON: None. Correlation made to CT abdomen and pelvis 05/15/2021 FINDINGS: Bladder: Pre-void bladder volume is 254 mL. Post-void residual is 134 mL. Pre-void images demonstr ate no intraluminal masses or stones. On pre-void images, bilateral ureteral jets are noted with col or Doppler interrogation. (Of note, ureteral jets may not be detectable in up to 25% of cases due to insufficient differences in specific gravity between ureteral and bladder urine). Postvoid images demonstrate dilatation of the right distal ureter. There is no incidental right or le ft hydronephrosis. Miscellaneous: No free pelvic fluid. The visible portion of the prostate gland measures 3.4 x 3.8 x 4.3 cm for a volume of 29 cc. IMPRESSION: 1. Moderate post void residual. 2. Normal sized prostate gland. 3. Right ureteral dilatation without right hydronephrosis on postvoid images. Reviewed by: Delilah Bean MD on 01/26/2023 2:28 PM PDT Approved by: Delilah Bean MD on 01/26/2023 2:28 PM PDT Station ID: [id number]
--- NOTE | 2023-01-26 14:32 | Ultrasound Report ---
PROCEDURE: Aorta Screening INDICATIONS: SCREENING FOR CARDIOVASCULAR DISEASE,UNSP SYMPTOMS TECHNIQUE: Real time scanning was performed of the aorta and iliac arteries, with image documentatio n. COMPARISON: Correlation made to CT abdomen and pelvis 05/15/2021 FINDINGS: Aorta: Proximal aortic diameter measures 2.1 x 1.9 cm. Mid-aorta measures 3.5 x 3.6 cm. Distal aor tic diameter is 2.0 x 2.3 cm. There is eccentric mural thrombus in the aneurysm sac. No periaortic f luid. Iliac arteries: Right common iliac artery measures 1.3 cm. Left common iliac artery measures 1.3 cm . IMPRESSION: 1. Stable size of the known mid abdominal aortic aneurysm with eccentric mural thrombus. Continued fo llow-up in 2 years is recommended. Recommended intervals for follow-up imaging of ectatic aortas and abdominal aortic aneurysms, per ACR consensus guidelines: 2.5-2.9 cm: 5 years 3.0-3.4 cm: 3 years 3.5-3.9 cm: 2 years 4.0-4.4 cm: 1 year 4.5-4.9 cm: 6 months + endovascular referral 5.0-5.5 cm: 3-6 months + endovascular referral Reviewed by: Delilah Bean MD on 01/26/2023 2:31 PM PDT Approved by: Delilah Bean MD on 01/26/2023 2:31 PM PDT Station ID: [id number]
== END 2023-01-26 08:53 | disposition home or self-care (01) ==
LOC: DI 08:52
PROVIDERS: ATTEND Internal Medicine
DX: Z13.6 Encounter for screening for cardiovascular disorders (principal); I71.40 Abdominal aortic aneurysm, without rupture, unspecified; N28.82 Megaloureter; R39.9 Unspecified symptoms and signs involving the genitourinary system

== ENCOUNTER 2023-12-25 08:02 | Outpatient (CLI) | payer MEDICARE, OTHER | END 2023-12-25 08:03 | disposition critical access hospital (66) | LOC: EMS 08:02 | DX: E11.65 Type 2 diabetes mellitus with hyperglycemia (principal); R41.0 Disorientation, unspecified; R39.89 Other symptoms and signs involving the genitourinary system; R11.2 Nausea with vomiting, unspecified; R53.1 Weakness; R00.0 Tachycardia, unspecified; R10.84 Generalized abdominal pain | CPT/HCPCS: A0425; A0427 ==

== ENCOUNTER 2023-12-25 08:19 | Observation (INO) | payer MEDICARE, OTHER ==
[2023-12-25 08:46] LABS: BASOPHILS % (AUTO) 0.2 %; EOSINOPHILS # (AUTO) 0.1 10^3/uL (0.0-0.7); EOSINOPHILS % (AUTO) 0.5 %; HCT - HEMATOCRIT 39.6 % (42.0-52.0); HGB - HEMOGLOBIN 14.1 g/dL (14.0-18.0); LYMPHOCYTES # (AUTO) 1.1 10^3/uL (1.5-3.5); LYMPHOCYTES % (AUTO) 6.4 %; MEAN CORPUSCULAR HEMOGLOBIN 29.8 pg (27.0-31.0); MEAN CORPUSCULAR HGB CONC 35.6 g/dL (32.0-36.0); MEAN CORPUSCULAR VOLUME 83.7 fL (80.0-94.0); MEAN PLATELET VOLUME 10.5 fL (7.4-11.4); MONOCYTES # (AUTO) 1.6 10^3/uL (0.0-1.0); MONOCYTES % (AUTO) 9.6 %; NEUTROPHILS # (AUTO) 14.2 10^3/uL (1.5-6.6); NEUTROPHILS % (AUTO) 82.8 %; PLT - PLATELET COUNT 256 10^3/uL (130-450); RED BLOOD COUNT 4.73 10^6/uL (4.70-6.10); RED CELL DISTRIBUTION WIDTH 12.5 % (12.0-15.0); WHITE BLOOD COUNT 17.1 x10^3/uL (4.8-10.8)
[2023-12-25 08:48] LABS: SLIDE REVIEW? Indicated
[2023-12-25 09:03] LABS: ALBUMIN 4.1 g/dL (3.2-5.5); ALBUMIN/GLOBULIN RATIO 1.2 (1.0-2.2); BILIRUBIN,TOTAL 0.9 mg/dL (0.2-1.0); CREATININE 1.7 mg/dL (0.6-1.3); TOTAL PROTEIN 7.4 g/dL (6.4-8.9)
[2023-12-25 09:07] LABS: PLATELET ESTIMATE, MANUAL NORMAL (130-450,000) (NORMAL); PLATELET MORPHOLOGY NORMAL APPEARANCE (NORMAL); RBC MORPHOLOGY (MULTIPLE) NORMAL APPEARANCE (NORMAL)
--- NOTE | 2023-12-25 09:08 | ED Physician Documentation ---
History of Present Illness - Stated complaint Stated Complaint: HIGH BLOOD SUGAR - Chief complaint Chief Complaint: General - History obtained from History obtained from: Patient, EMS - History of Present Illness Timing: Today - Additonal information Additional information: 83-year-old diabetic male with a history of atrial fibrillation with RVR and a history of diabetes with complications of dehydration and peripheral vascular disease. He is presenting to the emergency department with decreased level of consciousness similar to prior presentations. He has been administered 500 mL of saline and route to the hospital and is talking and making sense. Review of Systems Constitutional: denies: Fever Eyes: denies: Decreased vision Ears: denies: Ear pain Nose: denies: Congestion Throat: denies: Sore throat Cardiac: denies: Chest pain / pressure Respiratory: denies: Dyspnea, Cough GI: reports: Nausea, Vomiting : reports: Unable to Void Skin: denies: Rash Musculoskeletal: reports: Back pain. denies: Neck pain Neurologic: reports: Generalized weakness, Confused, Altered mental status. denies: Focal weakness, Numbness PD PAST MEDICAL HISTORY - Past Medical History Cardiovascular: Hypertension, High cholesterol, Coronary artery disease Respiratory: None Neuro: CVA Endocrine/Autoimmune: Type 2 diabetes GI: None : None HEENT: None Psych: None Musculoskeletal: Osteoarthritis Derm: None - Past Surgical History Past Surgical History: Yes General: Cholecystectomy Cardiovascular: Coronary stent HEENT: Tonsil/Adenoidectomy - Present Medications Home Medications: Ambulatory Orders Medication Instructions Recorded Confirmed Atorvastatin [Lipitor] 40 mg PO DAILY 05/19/19 08/01/22 HYDROcod/ACETAM 5/325 [[place] 5/325] 1.5 tab PO TID 05/19/19 08/01/22 Lisinopril [Zestril] 40 mg PO DAILY 05/19/19 08/01/22 Omeprazole 20 mg PO DAILY 05/19/19 08/01/22 Pregabalin 100 mg PO DAILY 05/19/19 08/01/22 Tamsulosin HCl [Flomax] 0.8 mg PO DAILY 05/19/19 08/01/22 Triazolam 0.25 mg PO DAILY PM 05/19/19 08/01/22 diltiaZEM CD [Cardizem Cd] 180 mg PO DAILY 05/19/19 08/01/22 Ondansetron Odt [Zofran] 4 mg TL Q6H PRN #10 tablet 05/15/21 08/01/22 Promethazine [Phenergan] 25 mg PO Q6H PRN #10 tab 05/15/21 08/01/22 Magnesium Oxide 400 mg PO DAILY #15 tablet 05/25/22 08/01/22 Apixaban [Eliquis] 5 mg PO BID 08/01/22 08/01/22 Aspirin [Vazalore] 81 mg PO DAILY 08/01/22 08/01/22 Glimepiride 1 mg PO DAILY 08/01/22 08/01/22 Methadone [Methadone Hcl] 5 mg PO Q8H 08/01/22 08/01/22 Triazolam 0.25 mg PO DAILY PM PRN 08/01/22 08/01/22 amLODIPine [Norvasc] 10 mg PO DAILY 08/01/22 08/01/22 carvediloL [Coreg] 12.5 mg PO BID 08/01/22 08/01/22 Tamsulosin [Flomax] 1 cap PO DAILY #14 cap 12/25/23 - Allergies Allergies/Adverse Reactions: Allergies Allergy/AdvReac Type Severity Reaction Status Date / Time No Known Drug Allergies Allergy Verified 12/25/23 08:33 - Social History Does the pt smoke?: No Smoking Status: Never smoker Does the pt drink ETOH?: No Does the pt have substance abuse?: No - Immunizations Immunizations are current?: Yes - POLST Patient has POLST: No PD ED PE NORMAL - Vitals Vital signs reviewed: Yes - General General: No acute distress, Well developed/nourished, Other (minimal speech latency and delay in execution of motor commands after IV fluid runnig. ) - HEENT HEENT: Atraumatic, PERRL, EOMI, Other (dry mucous membranes and billious vomit to the right side of the face/curtis) - Neck Neck: Supple, no meningeal sign, No bony TTP - Cardiac Cardiac: No murmur, Other (tachy to 110) - Respiratory Respiratory: No respiratory distress, Clear bilaterally - Abdomen Abdomen: Soft, Non tender - Back Back: No CVA TTP, No spinal TTP - Derm Derm: Normal color, Warm and dry, No rash - Extremities Extremities: No deformity, No edema - Neuro Neuro: pharmacy technician assistant 2-12 intact, No motor deficit, No sensory deficit, Normal speech Eye Opening: Spontaneous Motor: Obeys Commands Verbal: Confused GCS Score: 14 - Psych Psych: Normal mood, Normal affect Results - Vitals Vitals: Vital Signs - 24 hr 12/25/23 12/25/23 12/25/23 08:27 11:06 13:00 Temperature 36.5 C 36.5 C Heart Rate 106 H 97 103 H Respiratory 18 18 15 Rate Blood Pressure 152/105 H 146/98 H 142/85 H O2 Saturation 99 97 98 12/25/23 12/25/23 12/25/23 15:26 17:00 19:00 Temperature 36.8 C Heart Rate 101 H 105 H 104 H Respiratory 18 22 16 Rate Blood Pressure 148/85 H 149/64 H 170/94 H O2 Saturation 97 96 99 12/25/23 21:00 Temperature Heart Rate 117 H Respiratory 16 Rate Blood Pressure 141/89 H O2 Saturation 97 Oxygen O2 Source Room air - EKG (time done) 1811 EKG releavant findings:: EKG personally interpreted by author of this note. Relevant findings are: Rate: Rate (enter#) (104) Rhythm: Atrial fibrillation Intervals: Prolonged QT QRS: LVH Ischemia: Q waves Compare to prior EKG: Changed from prior EKG (SPT 07-31-22 the rate has decreased) Computer interpretation: Agree with computer - Labs Labs: Laboratory Tests 12/25/23 12/25/23 12/25/23 08:41 08:41 10:40 WBC 17.1 H RBC 4.73 Hgb 14.1 Hct 39.6 L MCV 83.7 MCH 29.8 MCHC 35.6 RDW 12.5 Plt Count 256 MPV 10.5 Neut # (Auto) 14.2 H Lymph # (Auto) 1.1 L Gates # (Auto) 1.6 H Eos # (Auto) 0.1 Baso # (Auto) 0.0 Absolute Nucleated RBC 0.00 Nucleated RBC % 0.0 Manual Slide Review Indicated Platelet Estimate NORMAL (130-450,000) Platelet Morphology NORMAL APPEARANCE RBC Morph Micro Appear NORMAL APPEARANCE VBG pH VBG pCO2 VBG pO2 VBG HCO3 VBG Total CO2 VBG O2 Saturation VBG Base Excess Sodium 139 Potassium 3.0 L Chloride 103 Carbon Dioxide 21 Anion Gap 15.0 H BUN 42 H Creatinine 1.7 H Estimated GFR (MDRD) 39 L Glucose 385 H Calcium 10.0 Total Bilirubin 0.9 AST 56 H ALT 25 Alkaline Phosphatase 50 Total Protein 7.4 Albumin 4.1 Globulin 3.3 Albumin/Globulin Ratio 1.2 Lipase 36 Urine Color ORANGE Urine Clarity CLEAR Urine pH Ur Specific Midway Urine Protein Urine Glucose (UA) Urine Ketones Urine Occult Blood Urine Nitrite Urine Bilirubin COLOR INTERFERENCE Urine Urobilinogen Ur Leukocyte Esterase NEGATIVE Urine RBC 0-5 Urine WBC 0-3 Ur Squamous Epith Cells RARE Squamous Urine Bacteria Few Urine Casts 3-5 Granular Casts Ur Microscopic Review INDICATED Urine Culture Comments NOT INDICATED Stl Occult Blood (IFOB) Serum Ketones 12/25/23 12/25/23 12/25/23 10:49 10:49 11:03 WBC RBC Hgb Hct MCV MCH MCHC RDW Plt Count MPV Neut # (Auto) Lymph # (Auto) Gates # (Auto) Eos # (Auto) Baso # (Auto) Absolute Nucleated RBC Nucleated RBC % Manual Slide Review Platelet Estimate Platelet Morphology RBC Morph Micro Appear VBG pH 7.437 H VBG pCO2 27.5 L VBG pO2 39.5 VBG HCO3 18.1 L VBG Total CO2 19.0 L VBG O2 Saturation 74.4 VBG Base Excess -4.5 L Sodium Potassium Chloride Carbon Dioxide Anion Gap BUN Creatinine Estimated GFR (MDRD) Glucose Calcium Total Bilirubin AST ALT Alkaline Phosphatase Total Protein Albumin Globulin Albumin/Globulin Ratio Lipase Urine Color Urine Clarity Urine pH Ur Specific [place]way Urine Protein Urine Glucose (UA) Urine Ketones Urine Occult Blood Urine Nitrite Urine Bilirubin Urine Urobilinogen Ur Leukocyte Esterase Urine RBC Urine WBC Ur Squamous Epith Cells Urine Bacteria Urine Casts Ur Microscopic Review Urine Culture Comments Stl Occult Blood (IFOB) NEGATIVE Serum Ketones NEGATIVE - Rads (name of study) CT head Relevant Findings:: Prelim report reviewed (Impression: no acute intracranial pathology.), EMP independent interpretation of test, See rad report Procedures - IVC sono (time) 0845 Bedside IVC sono: IVC measures (cm) (0.83), IVC collapsed c insp (cm) (complete), Dehydration (est 2 + liter deficit after 500ml given.) PD Medical Decision Making - ED course Complexity details: reviewed old records, reviewed results, re-evaluated patient, considered differential, d/w patient Reviewed Lab Results: We reviewed a complete blood cell count which showed an elevated white blood cell count of 17.1 and normal hemoglobin and hematocrit normal platelets. A venous blood gas is obtained showing a pH of 7.437 chemistries show a potassium low at 3 BUN elevated at 42 which is a record for the patient and creatinine elevated at 1.7 also record for the patient blood glucose elevated at 385 also record for the patient. Urinalysis shows clear yellow clear orange urine 0-3 white blood cells per high-powered field occult blood is negative serum ketones are negative. I interpret these laboratory test to indicate the patient has elevated blood glucose but without evidence of ketoacidosis. He also appears to have acute kidney injury this is consistent with the degree of dehydration demonstrated on interrogation of the IVC with POCUS. ED course: Tulio Maynard is an 83-year-old male who has had a problem previously with dehydration he is a diabetic and has elevated blood sugar and is markedly dehydrated today. He is mildly confused. He is received some IV fluid prior to arrival to the emergency department and appears improved from his prior. He has not been able to urinate for 2 days and he has greater than 1 L of urine in the bladder. A Clark catheter is placed draining clear urine and the patient is administered intravenous fluid. He feels improved. He has low potassium and an potassium is replaced orally and intravenously. He received 2 L of fluid intravenously. . Following administration of the first liter of saline his blood sugar comes down to 338 and he is administered 10 units of insulin intravenously. We do not have beds available in the hospital today for admission and the patient's care is aggressive in the emergency department with fluid replacement, IV insulin, relief of bladder outlet obstruction and replacement of potassium. Tulio seemed to respond to these treatments initially but then became again altered and was unable to support himself to get out of bed. His is reluctant to take him home. I reviewed his chart and found that this has happened to him previously where it is taking longer than a day for him to recover. He does have a history of peripheral vascular disease with carotid stenosis of 95% which she has elected to treat medically. I talked to our bottle dealer Roseann Dillard at 2120 for admission. Departure - Departure Disposition: ED Place in Observation Clinical Impression: Dehydration, Urinary retention, Hypokalemia, Altered level of consciousness Uncontrolled diabetes mellitus Qualifiers: Diabetes mellitus type: type 2 Glycemic state: with hyperglycemia Qualified Code(s): E11.65 - Type 2 diabetes mellitus with hyperglycemia Condition: Fair Instructions: ED Hyperglycemia Diabetic, ED Dehydration, ED Catheter Care Clark, ED Diet High Potassium, ED Retention Urinary Male Follow-Up: Louie Day MD [Provider Admit Priv/Credential] - Ezra Loredo MD [Provider Admit Priv/Credential] - Prescriptions: Tamsulosin [Flomax] 1 cap PO DAILY #14 cap Comments: Tulio, today it looks like you had several things going on the most profound of which was the amount of dehydration you had associated with your diabetes been being out of control. We are able to give you IV fluid today as well as some IV potassium and oral potassium and we are expecting your strength and concentration to improve today. We also found that you had urinary retention and you will need to keep this Clark catheter in place for more than 1 week. A follow-up with urology with Dr. Day is indicated. In the meantime we will restart you on your tamsulosin and this has been E scribed to the [facility] pharmacy here in [place]. Forms: PCP List
[2023-12-25] MEDS: SODIUM CHLORIDE 0.9% 1,000 ML IV STA ×2 (09:36→13:19)
[2023-12-25 10:48] LABS: LEUKOCYTE ESTERASE, URINE NEGATIVE (NEGATIVE)
[2023-12-25 10:56] LABS: VBG PCO2 27.5 mmHg (41-51); VBG PH 7.437 (7.31-7.41)
[2023-12-25 10:57] LABS: VBG BASE EXCESS -4.5 mmol/L (-2 - +2); VBG HCO3 18.1 mmol/L (23-28); VBG OXYGEN SATURATION 74.4 % (60-80); VBG PO2 39.5 mmHg (25-47)
[2023-12-25 11:03] LABS: BILIRUBIN,URINE COLOR INTERFERENCE (NEGATIVE); CLARITY,URINE CLEAR (CLEAR)
[2023-12-25 11:04] LABS: BACTERIA,URINE Few /HPF (None Seen); CASTS, URINE 3-5 Granular Casts /LPF; RBC,URINE 0-5 /HPF (0-5); SQUAMOUS EPITHELIAL CELL,UR RARE Squamous (<= Few); WBC,URINE 0-3 /HPF (0-3)
[2023-12-25 11:25] LABS: FECAL OCCULT BLOOD (FIT) NEGATIVE (NEGATIVE)
[2023-12-25] MEDS: POTASSIUM BICARB 25 MEQ TABLET PO STA (13:46)
[2023-12-25] MEDS: POTASSIUM CHLOR 10 MEQ/100 ML 10 MEQ/100 ML BAG IV ONE ×2 (13:46→23:33)
[2023-12-25] MEDS: INSULIN REGULAR, HUMAN 300 UNIT/3 ML PEN IVP STA (13:54)
--- NOTE | 2023-12-25 13:54 | XRAY Report ---
PROCEDURE: Chest 1V INDICATIONS: chest pain TECHNIQUE: One view of the chest was acquired. COMPARISON: 05/25/2022. FINDINGS: Surgical changes and devices: Remote CABG. Lungs and pleura: No pleural effusions or pneumothorax. Lungs are clear. Mediastinum: Mediastinal contours appear normal. Heart size is normal. Bones and chest wall: No suspicious bony lesions. Overlying soft tissues appear unremarkable. IMPRESSION: No acute cardiopulmonary process. Reviewed by: Christofer Willingham MD on 12/25/2023 1:53 PM PDT Approved by: Christofer Willingham MD on 12/25/2023 1:53 PM PDT Station ID: [id number]
[2023-12-25] MEDS: lisinopriL 20 MG TABLET PO STA (18:36)
[2023-12-25] MEDS: TAMSULOSIN 0.4 MG CAPSULE PO STA (18:36)
[2023-12-25] MEDS: diltiaZEM CD 180 MG CAPSULE PO ONE (18:37)
[2023-12-25] MEDS: amLODIPine 5 MG TABLET PO STA (18:37)
[2023-12-25] MEDS: carvediloL 12.5 MG TABLET PO STA (18:37)
[2023-12-25] MEDS: APIXABAN 5 MG TABLET PO STA (18:37)
--- NOTE | 2023-12-25 19:27 | CT Report ---
PROCEDURE: Head WO INDICATIONS: altered loc eliquis TECHNIQUE: Noncontrast 4.5 mm thick angled axial sections acquired from the foramen magnum to the vertex. For r adiation dose reduction, the following was used: automated exposure control, adjustment of mA and/or kV according to patient size. COMPARISON: 07/31/2022. FINDINGS: Image quality: Excellent. CSF spaces: Basal cisterns are patent. No extra-axial fluid collections. Ventricles are normal in size and shape. Brain: No midline shift. No intracranial masses or hemorrhage. Age-related global volume loss and c hronic microvascular ischemic changes. Intracranial atherosclerotic vascular calcifications. Valero-w francesca matter interface is normal. Skull and face: Calvarium and visualized facial bones are intact, without suspicious lesions. Sinuses: Visualized sinuses and mastoids are clear. IMPRESSION: No acute intracranial pathology. Reviewed by: Mac Hennessy MD on 12/25/2023 7:25 PM PDT Approved by: Mac Hennessy MD on 12/25/2023 7:25 PM PDT Station ID: [id number]
--- NOTE | 2023-12-25 21:26 | HISTORY & PHYSICAL EXAMINATION ---
Chief Complaint - Chief Complaint Chief Complaint: AMS History of Present Illness - Admitted From Admitted From:: ER - History Obtained From Records Reviewed: Yes History obtained from: Pt, staff, chart Exam Limitations: Virtual exam - History of Present Illness HPI Comment/Other: H&P was conducted via video remotely, using [employer]. [place] No one is at bedside. Pt able to give very little history. History also obtained from ER staff, chart. 83 yo M with PMH of DM type 2, AFib, HTN, HLD, CAD, PVD, Carotid Stenosis, CVA, BPH, DJD presented to the ER with c/o AMS and High BS. Pt cannot remember exactly why he came to the ER. He does feel confused. He does have nausea. There was evidence of emesis on his face upon arrival to the ER. Pt denies F/C/CP/SOB/cough. He feels "lousy": +fatigue, +nausea. No abdo pain. He does not remember his last BM or if he was able to urinate recently. ER staff reported that had told them that pt had run out of Flomax 5 days ago and has not been able to urinate x 2 days. Pt has presented to the ER with similar presentations in past. Pt was given IVF 500 ml via EMS. In the ER, HR 106, BP 152/105, WBC 17.1, K 3.0, Glc 385, CR 1.7, CO2 21, U/A neg, s ketones neg Bladder Scan: >1L Clark Catheter placed in the ER CXR: NAD CT Head: NAD Pt was given IVF, Reg Ins 10 U IV, Flomax, Norvasc, Eliquis, Coreg, Lisinopril, Diltiazem, KHCO3 25 meq PO, KCl 20 mEq IV in the ER. History - Past Medical History Cardiovascular: reports: Hypertension, High cholesterol, Coronary artery disease Respiratory: reports: None Neuro: reports: CVA Endocrine/Autoimmune: reports: Type 2 diabetes GI: reports: None : reports: None HEENT: reports: None Psych: reports: None Musculoskeletal: reports: Osteoarthritis Derm: reports: None MRSA Hx?: No - Past Surgical History General: reports: Cholecystectomy Cardiovascular: reports: Coronary stent HEENT: reports: Tonsil/Adenoidectomy - POLST Patient has POLST: No Meds/Allgy - Home Medications Home Medications: Ambulatory Orders Medication Instructions Recorded Confirmed Atorvastatin [Lipitor] 40 mg PO DAILY 05/19/19 08/01/22 HYDROcod/ACETAM 5/325 [Mentone 5/325] 1.5 tab PO TID 05/19/19 08/01/22 Lisinopril [Zestril] 40 mg PO DAILY 05/19/19 08/01/22 Omeprazole 20 mg PO DAILY 05/19/19 08/01/22 Pregabalin 100 mg PO DAILY 05/19/19 08/01/22 Tamsulosin HCl [Flomax] 0.8 mg PO DAILY 05/19/19 08/01/22 Triazolam 0.25 mg PO DAILY PM 05/19/19 08/01/22 diltiaZEM CD [Cardizem Cd] 180 mg PO DAILY 05/19/19 08/01/22 Ondansetron Odt [Zofran] 4 mg TL Q6H PRN #10 tablet 05/15/21 08/01/22 Promethazine [Phenergan] 25 mg PO Q6H PRN #10 tab 05/15/21 08/01/22 Magnesium Oxide 400 mg PO DAILY #15 tablet 05/25/22 08/01/22 Apixaban [Eliquis] 5 mg PO BID 08/01/22 08/01/22 Aspirin [Vazalore] 81 mg PO DAILY 08/01/22 08/01/22 Glimepiride 1 mg PO DAILY 08/01/22 08/01/22 Methadone [Methadone Hcl] 5 mg PO Q8H 08/01/22 08/01/22 Triazolam 0.25 mg PO DAILY PM PRN 08/01/22 08/01/22 amLODIPine [Norvasc] 10 mg PO DAILY 08/01/22 08/01/22 carvediloL [Coreg] 12.5 mg PO BID 08/01/22 08/01/22 Tamsulosin [Flomax] 1 cap PO DAILY #14 cap 12/25/23 - Allergies Allergies/Adverse Reactions: Allergies Allergy/AdvReac Type Severity Reaction Status Date / Time No Known Drug Allergies Allergy Verified 12/25/23 08:33 Review of Systems - All Other Systems All Other Systems: reports: Reviewed and negative Exam - Vital Signs Reviewed Vital Signs: Yes Vital Signs: Vital Signs x48h Temp Pulse Resp BP Pulse Ox 12/25/23 19:00 104 H 16 170/94 H 99 12/25/23 17:00 105 H 22 149/64 H 96 12/25/23 15:26 36.8 C 101 H 18 148/85 H 97 - Physical Exam General Appearance: positive: No acute distress Eyes Bilateral: positive: EOMI, No scleral icterus ENT: positive: Dry mucous membranes Respiratory: positive: Other (cart stethoscope not working; per ER Provider: CTA B/L) Cardiovascular: positive: Other (cart stethoscope not working; per ER Provider: RR, tachy, no murmurs) Abdomen: positive: Other (per ER Provider: non-distended, NT, Soft) Extremities: positive: Other (per ER Provider: moves all extrem, no edema) Neurologic/Psychiatric: positive: Other (Confused, Ox2 (person, place), decreased short-term memory. Per ER Provider: GCS 14) Conclusion/Plan - Problem List (1) Altered level of consciousness Conclusion/Plan: AMS Dehydration Nausea/Vomiting Hypokalemia Tachycardia Acute Renal Failure -Pt was given IVF 500 ml via EMS. -HR 106, K 3.0, CR 1.7 (baseline CR 1.0) -CT Head: NAD -Pt was given IVF, KHCO3 25 meq PO, KCl 20 mEq IV in the ER. -admit to Obs/Med Surg -continue IVF -clear liquid diet; advance as tolerated -anti-emetics PRN -supplement K now and PRN -avoid nephrotoxins -hold home medications: Methadone, Triazolam, Mentone d/t AMS BPH with Urinary Retention -Off Flomax x 5 days. No urination x 2 days. -Bladder Scan: >1L -Clark Catheter placed in the ER -Pt was given Flomax in the ER. -continue Clark -restart home medication: Flomax DM type 2 with Hyperglycemia -Glc 385, CO2 21, s ketones neg -Pt was given IVF, Reg Ins 10 U IV in the ER. -accuchecks, SS Insulin, Hypoglycemic protocol -hold home medications: Glimepiride -check Hgba1c Leukocytosis -WBC 17.1U/A neg -CXR: NAD -no current s/s of infection. Will monitor for now. AFib HTN HLD CAD PVD Carotid Stenosis H/o CVA -BP 152/105 -pt has opted in past for no surgery on carotid per ER Provider -continue home medications: statin, Diltiazem, Eliquis, ASA, Amlodipine, Coreg -hold home medications: Lisinopril d/t ARF -Hydralazine PRN DJD -continue home medications: Lyrica -hold home medications: Mentone, Methadone d/t AMS GERD -continue home medications: PPI VTE Prophylaxis: pt on Eliquis Code Status: D/W pt; he was able to understand and discuss. Pt is Full Code. ~Roseann Leahy MD Hospitalist - Lab Results Lab results reviewed: Yes Fish Bones: 12/25/23 08:41 12/25/23 08:41
[2023-12-25] MEDS ORDERED: ONDANSETRON ODT 4 MG TABLET TL PRN (21:54)
[2023-12-25] MEDS ORDERED: ONDANSETRON 4 MG/2 ML VIAL IVP PRN (21:55)
[2023-12-25] MEDS ORDERED: ACETAMINOPHEN 325 MG TABLET PO PRN (21:55)
[2023-12-25] MEDS ORDERED: hydrALAZINE 10 MG TABLET PO PRN (23:19)
[2023-12-25] MEDS: SODIUM CHLORIDE 0.9% 1,000 ML IV SCH (23:34)
--- NOTE | 2023-12-26 00:58 | ED Physician Documentation ---
ED Addendum - Addendum Addendum: 12/26/23 00:57 staff development coordinator approached me regarding hospitalist order for humalog. Since patient is not currently eating and his blood glucose is 278, plan to hold humalog as of 1am. The patient is boarding in the ED for now since there are no beds overnight. plan to endorse to incoming daytime ED MD at 7am shift change.
[2023-12-26] MEDS: INSULIN LISPRO 300 UNIT/3 ML PEN SUBQ SCH (01:00)
[2023-12-26] MEDS: SODIUM CHLORIDE FLUSH 0.9% 10 ML SYRINGE IVP SCH (01:06)
[2023-12-26 04:57] LABS: EOSINOPHILS % (AUTO) 0.2 %; HGB - HEMOGLOBIN 14.4 g/dL (14.0-18.0); MEAN PLATELET VOLUME 10.3 fL (7.4-11.4); RED CELL DISTRIBUTION WIDTH 12.7 % (12.0-15.0)
[2023-12-26 04:59] LABS: BASOPHILS % (AUTO) 0.1 %; HCT - HEMATOCRIT 40.2 % (42.0-52.0); LYMPHOCYTES # (AUTO) 1.4 10^3/uL (1.5-3.5); LYMPHOCYTES % (AUTO) 7.9 %; MEAN CORPUSCULAR HEMOGLOBIN 30.3 pg (27.0-31.0); MEAN CORPUSCULAR HGB CONC 35.8 g/dL (32.0-36.0); MEAN CORPUSCULAR VOLUME 84.5 fL (80.0-94.0); MONOCYTES # (AUTO) 1.2 10^3/uL (0.0-1.0); MONOCYTES % (AUTO) 6.5 %; NEUTROPHILS # (AUTO) 14.9 10^3/uL (1.5-6.6); PLT - PLATELET COUNT 243 10^3/uL (130-450); RED BLOOD COUNT 4.76 10^6/uL (4.70-6.10); WHITE BLOOD COUNT 17.6 x10^3/uL (4.8-10.8)
[2023-12-26 05:24] LABS: CALCIUM 8.7 mg/dL (8.5-10.3); CREATININE 1.1 mg/dL (0.6-1.3); POTASSIUM 2.5 mmol/L (3.5-4.5)
[2023-12-26] MEDS: POTASSIUM CHLORIDE 20 MEQ/15 ML UDC PO STA (05:38)
[2023-12-26] MEDS: POTASSIUM CHLOR 10 MEQ/100 ML 10 MEQ/100 ML BAG IV STA (05:38)
[2023-12-26] MEDS: MAGNESIUM SULFATE 2 GRAM 2 GM/50 ML BAG IV ONE (05:46)
[2023-12-26] MEDS: PANTOPRAZOLE 40 MG TABLET PO SCH (06:02)
[2023-12-26] MEDS: MAGNESIUM SULFATE 2 GRAM 2 GM/50 ML BAG IV SCH (07:59)
[2023-12-26] MEDS: POTASSIUM CHLOR 10 MEQ/100 ML 10 MEQ/100 ML BAG IV SCH (07:59)
[2023-12-26] MEDS: MAGNESIUM SULFATE 1 GM/2 ML VIAL IVP STA (08:22)
[2023-12-26] MEDS: POTASSIUM CHLORIDE INJ 80 MEQ in SODIUM CHLORIDE 0.9% 500 ML IV ONE (08:22)
[2023-12-26] MEDS ORDERED: NON FORMULARY MED (Lisinopril [Zestril] 40 MG Tablet) PO SCH (09:00)
[2023-12-26] MEDS: INSULIN LISPRO 300 UNIT/3 ML PEN SUBQ STA (09:06)
[2023-12-26] MEDS: PIPERACILLIN/TAZOBACTAM 3.375 GM in SODIUM CHLORIDE 0.9% MINIBAG 100 ML IV SCH (10:28)
[2023-12-26] MEDS: amLODIPine 5 MG TABLET PO SCH ×2 (10:29→21:31)
[2023-12-26] MEDS: carvediloL 12.5 MG TABLET PO SCH (10:29)
[2023-12-26] MEDS: PREGABALIN 100 MG CAPSULE PO SCH ×2 (10:29→21:31)
[2023-12-26] MEDS: ASPIRIN CHEW 81 MG TABLET PO SCH (10:29)
[2023-12-26] MEDS: APIXABAN 5 MG TABLET PO SCH (10:30)
[2023-12-26] MEDS: TAMSULOSIN 0.4 MG CAPSULE PO SCH (10:30)
[2023-12-26] MEDS: MAGNESIUM OXIDE 400 MG TABLET PO SCH (10:30)
[2023-12-26] MEDS: ATORVASTATIN 40 MG TABLET PO SCH ×2 (10:50→21:31)
[2023-12-26] MEDS: diltiaZEM CD 180 MG CAPSULE PO SCH (10:50)
[2023-12-26] MEDS: ATORVASTATIN 10 MG TABLET PO SCH (11:11)
[2023-12-26 14:21] LABS: ESTIMATED AVERAGE GLUCOSE 137 mg/dL (70-100); HEMOGLOBIN A1c% 6.4 % (4.27-6.07)
--- NOTE | 2023-12-26 14:42 | PROVIDER PROGRESS NOTE ---
Subjective - Prog Note Date Prog Note Date: 12/26/23 Prog Note Time: 14:40 - Subjective Subjective: The patient is an 83-year-old male with an extensive past medical history to include coronary artery disease status post stent placement. He had a three-vessel CABG about 4 years ago. In addition he has known peripheral vascular disease and carotid artery stenosis. The patient saw the vascular surgeon and has opted to not have a carotid endarterectomy. He has a history of paroxysmal atrial fibrillation and is on Eliquis. He has BPH maintained on high-dose Flomax. He has severe diabetic neuropathy and has severe pain from this. He takes Lyrica and chronic opiates as a result. The patient was brought to the emergency room with altered mental status and inability to urinate for 2 days. He had run out of his Flomax and had had inc reasing confusion. In the emergency room he was found to have significant hyperglycemia as well as an acute kidney injury. He had greater than 1000 cc of urine in his bladder and he had a Clark catheter placed. He has been placed back on his home medications and received IV fluids. This morning the patient had significant electrolyte abnormalities that are being repleted. He had developed a metabolic acidosis and worsening white blood cell count of 17.6. At the time of admission he was extremely confused. I spoke at length to the patient's significant other. She says that his formal healthcare power of attorney law clerk is his Sister Carolyn Hilton who lives in [place]. She confirms his DNR status. She is his point of contact during this hospitalization. She said that over the years that he has had episodes where he has become confused and then had issues with vomiting and then refused to eat or drink and has become quite dehydrated. She says he usually comes into the hospital and gets better after 3 to 4 days. She said that this is the worst that the confusion has ever been and that it was a little bit different this time. She said that last night he was complaining of pain in the center of his chest as well. She said he did have vomiting and had been able to urinate for the past 2 days. She also states that he smokes marijuana quite regularly. He goes on binges where he smokes heavily and she is concerned that he could have cyclical vomiting syndrome per her research. When I went to see the patient today he is not as confused as he was yesterday. He does not have much recollection about what happened but says that he does have some discomfort in the epigastric area of his abdomen. He has had no fever or shaking chills. He does not remember having the chest discomfort last night. He has had no nausea or vomiting today. Again epigastric pain. He has a Clark catheter in place and has been started back on his Flomax Current Medications - Current Medications Current Medications: Active Medications Generic Name Dose Route Start Last Admin Trade Name Mouna PRN Reason Stop Dose Admin Acetaminophen 650 mg 12/25/23 21:55 Acetaminophen 325 Mg Tablet PO Q4HR PRN Pain 1 to 4, or Fever Hydrocodone Bitart/Acetaminophen tab 12/26/23 14:35 Hydrocod/Acetam 10 Mg/325 Mg Tablet PO Q4H PRN Moderate Pain (Level 4-6) Amlodipine Besylate 10 mg 12/26/23 09:00 12/26/23 10:29 Amlodipine 5 Mg Tablet PO 10 mg DAILY [facility] Administration Apixaban 5 mg 12/26/23 09:00 12/26/23 10:30 Apixaban 5 Mg Tablet PO 5 mg BID [facility] Administration Aspirin 81 mg 12/26/23 09:00 12/26/23 10:29 Aspirin Chew 81 Mg Tablet PO 81 mg DAILY [facility] Administration Atorvastatin Calcium 40 mg 12/26/23 11:00 12/26/23 10:50 Atorvastatin 40 Mg Tablet PO 40 mg DAILY [facility] Administration Carvedilol 12.5 mg 12/26/23 09:00 12/26/23 10:29 Carvedilol 12.5 Mg Tablet PO 12.5 mg BID [facility] Administration Carvedilol 12.5 mg 12/26/23 21:00 Carvedilol 12.5 Mg Tablet PO BID [facility] Diltiazem HCl 180 mg 12/26/23 09:00 12/26/23 10:50 Diltiazem Cd 180 Mg Capsule PO 180 mg DAILY [facility] Administration Hydralazine HCl 10 mg 12/25/23 23:19 Hydralazine 10 Mg Tablet PO Q6H PRN SBP> or= 160 OR DBP> or= 110 Sodium Chloride 1,000 mls @ 100 mls/hr 12/25/23 22:00 12/26/23 10:22 Normal Saline 0.9% IV 100 mls/hr .Q10H [facility] Administration Potassium Chloride 10 meq in 100 mls @ 100 mls/hr 12/26/23 08:00 12/26/23 14:42 Potassium Chloride IV 12/26/23 15:59 100 mls/hr Q1H [facility] Administration Piperacillin Sod/Tazobactam 100 mls @ 200 mls/hr 12/26/23 08:00 12/26/23 11:10 Sod 3.375 gm/ Sodium Chloride IV Infused Q6H [facility] Infusion Insulin Glargine-yfgn unit 12/26/23 21:00 Insulin Glargine-Yfgn 300 Unit/3 Ml Pen SUBQ QPM [facility] Insulin Human Lispro 1 - 5 unit 12/25/23 23:00 12/26/23 12:54 Insulin Lispro 300 Unit/3 Ml Pen SUBQ 3 unit 0800,1200,1700,2100 [facility] Administration Protocol Magnesium Oxide 400 mg 12/26/23 09:00 12/26/23 10:30 Magnesium Oxide 400 Mg Tablet PO 400 mg DAILY [facility] Administration Non-Formulary Medication 10 mg 12/26/23 21:00 Amlodipine Besylate [Norvasc] PO BID [facility] Non-Formulary Medication 150 mg 12/26/23 14:45 Pregabalin [Lyrica] PO TID [facility] Non-Formulary Medication 40 mg 12/27/23 09:00 Rosuvastatin Calcium [Crestor] PO DAILY [facility] Ondansetron HCl 4 mg 12/25/23 21:54 Ondansetron Odt 4 Mg Tablet TL Q6H PRN Nausea / Vomiting Ondansetron HCl 4 mg 12/25/23 21:55 Ondansetron 4 Mg/2 Ml Vial IVP Q6HR PRN Nausea / Vomiting Pantoprazole Sodium 40 mg 12/26/23 07:00 12/26/23 06:02 Pantoprazole 40 Mg Tablet PO 40 mg QDAC [facility] Administration Pregabalin 100 mg 12/26/23 09:00 12/26/23 10:29 Pregabalin 100 Mg Capsule PO 100 mg DAILY [facility] Administration Sodium Chloride 10 ml 12/25/23 21:55 Sodium Chloride Flush 0.9% 10 Ml Syringe IVP PRN PRN NEEDED PER PROVIDER ORDERS Sodium Chloride 10 ml 12/26/23 01:00 12/26/23 10:30 Sodium Chloride Flush 0.9% 10 Ml Syringe IVP 10 ml 0100,0900,1700 [facility] Administration Tamsulosin HCl 0.8 mg 12/26/23 09:00 12/26/23 10:30 Tamsulosin 0.4 Mg Capsule PO 0.8 mg DAILY [facility] Administration Omeprazole 20 mg PO BID 05/19/19 Tamsulosin HCl [Flomax] 0.8 mg PO DAILY 05/19/19 Triazolam 0.25 mg PO DAILY PM 05/19/19 Apixaban [Eliquis] 5 mg PO BID 08/01/22 Aspirin [Vazalore] 81 mg PO DAILY 08/01/22 Amlodipine Besylate [Norvasc] 10 mg PO BID 12/26/23 Hydrocodone/Acetaminophen [Hydrocodone-Acetamin 10-325 mg] 1 each PO UD 12/26/23 Insulin Glargine-Yfgn [Semglee] 22 units SUBQ QPM 12/26/23 Insulin Lispro [Insulin Lispro Kwikpen U-100] 12/26/23 Pregabalin [Lyrica] 150 mg PO TID 12/26/23 Rosuvastatin Calcium [Crestor] 40 mg PO DAILY 12/26/23 carvediloL [Coreg] 12.5 mg PO BID 12/26/23 Objective - Vital Signs/Intake & Output Reviewed Vital Signs: Yes Vital Signs: Vital Signs x48h Temp Pulse Resp BP Pulse Ox 12/26/23 13:40 35.9 C L 87 14 125/79 99 12/26/23 13:00 73 16 131/82 H 98 12/26/23 12:00 79 16 144/65 H 98 12/26/23 11:00 79 16 130/82 H 98 12/26/23 10:00 92 16 121/82 H 97 12/26/23 09:00 89 20 155/81 H 96 12/26/23 08:00 36.4 C L 93 17 128/83 H 98 Intake & Output: Intake & Output 12/23/23 12/24/23 12/25/23 12/26/23 23:59 23:59 23:59 23:59 Intake Total 2100 1845.000 Output Total 3500 900 Balance -1400 945.000 - Objective General Appearance: positive: No acute distress, Other (He is alert and oriented x 3 but still a little confused as to his situation and why he is in the hospital) Eyes Bilateral: positive: Normal inspection ENT: positive: ENT inspection nml Neck: positive: Nml inspection Respiratory: positive: Chest non-tender, No respiratory distress, Breath sounds nml Cardiovascular: positive: Regular rate & rhythm, No murmur, No gallop. negative: Friction rub Abdomen: positive: Other (The patient has tenderness to palpation with guarding in the epigastric area and right upper quadrant. The rest of his abdominal exam is benign. He has positive bowel sounds.) Skin: positive: Color nml, No rash, Warm, Dry Extremities: positive: Non-tender, Full ROM Neurologic/Psychiatric: positive: Oriented x3, CN's nml (2-12) - Lab Results Fish Bones: 12/26/23 04:45 12/26/23 04:45 Other Labs: Lab Results x24hrs 12/26/23 12/26/23 12/26/23 Range/Units 12:45 08:03 08:03 WBC (4.8-10.8) x10^3/uL RBC (4.70-6.10) 10^6/uL Hgb (14.0-18.0) g/dL Hct (42.0-52.0) % MCV (80.0-94.0) fL MCH (27.0-31.0) pg MCHC (32.0-36.0) g/dL RDW (12.0-15.0) % Plt Count (130-450) 10^3/uL MPV (7.4-11.4) fL Neut # (Auto) (1.5-6.6) 10^3/uL Lymph # (Auto) (1.5-3.5) 10^3/uL Rankin # (Auto) (0.0-1.0) 10^3/uL Eos # (Auto) (0.0-0.7) 10^3/uL Baso # (Auto) (0.0-0.1) 10^3/uL Absolute Nucleated RBC x10^3/uL Nucleated RBC % /100WBC Sodium (135-145) mmol/L Potassium (3.5-4.5) mmol/L Chloride (101-111) mmol/L Carbon Dioxide (21-32) mmol/L Anion Gap (6-13) BUN (6-20) mg/dL Creatinine (0.6-1.3) mg/dL Estimated GFR (MDRD) (>89) Glucose (74-104) mg/dL POC Whole Bld Glucose 247 H (70 - 100) mg/dL Estimat Average Glucose (70-100) mg/dL Hemoglobin A1c % (4.27-6.07) % Lactic Acid 1.2 (0.5-2.2) mmol/L Calcium (8.5-10.3) mg/dL Magnesium (1.7-2.3) mg/dL Procalcitonin Immunoas 0.20 (<0.5) ng/mL 12/26/23 12/26/23 12/26/23 Range/Units 04:45 04:45 04:45 WBC 17.6 H (4.8-10.8) x10^3/uL RBC 4.76 (4.70-6.10) 10^6/uL Hgb 14.4 (14.0-18.0) g/dL Hct 40.2 L (42.0-52.0) % MCV 84.5 (80.0-94.0) fL MCH 30.3 (27.0-31.0) pg MCHC 35.8 (32.0-36.0) g/dL RDW 12.7 (12.0-15.0) % Plt Count 243 (130-450) 10^3/uL MPV 10.3 (7.4-11.4) fL Neut # (Auto) 14.9 H (1.5-6.6) 10^3/uL Lymph # (Auto) 1.4 L (1.5-3.5) 10^3/uL Rankin # (Auto) 1.2 H (0.0-1.0) 10^3/uL Eos # (Auto) 0.0 (0.0-0.7) 10^3/uL Baso # (Auto) 0.0 (0.0-0.1) 10^3/uL Absolute Nucleated RBC 0.00 x10^3/uL Nucleated RBC % 0.0 /100WBC Sodium 140 (135-145) mmol/L Potassium 2.5 L* (3.5-4.5) mmol/L Chloride 106 (101-111) mmol/L Carbon Dioxide 20 L (21-32) mmol/L Anion Gap 14.0 H (6-13) BUN 37 H (6-20) mg/dL Creatinine 1.1 (0.6-1.3) mg/dL Estimated GFR (MDRD) 64 L (>89) Glucose 270 H (74-104) mg/dL POC Whole Bld Glucose (70 - 100) mg/dL Estimat Average Glucose 137 H (70-100) mg/dL Hemoglobin A1c % 6.4 H (4.27-6.07) % Lactic Acid (0.5-2.2) mmol/L Calcium 8.7 (8.5-10.3) mg/dL Magnesium 1.0 L* (1.7-2.3) mg/dL Procalcitonin Immunoas (<0.5) ng/mL ABX Reporting Has patient been on IV antibiotics over the past 48 hours?: No Assessment/Plan - Problem List (1) Acute metabolic encephalopathy Impression: The patient presented with acute metabolic encephalopathy possibly due to dehydration. Cannot rule out underlying infection. Mentation is improving but according to the patient's significant other he is not yet back to his cognitive baseline. Workup will be outlined below (2) Abdominal pain with vomiting Impression: The patient complains of epigastric pain. He also had some chest discomfort and vomiting overnight. Will get a CT scan of the abdomen and pelvis and will repeat an EKG and trend his troponins. He has developed a mild metabolic acidosis since yesterday. He has worsening white blood cell count that has risen up to 17.6. He is empirically for now been placed on IV Zosyn. He will have a chemistry panel in the morning. He has antiemetics as needed for nausea (3) Acute kidney injury Impression: Secondary to urinary retention. Improved with placement of Clark catheter. (4) BPH (benign prostatic hyperplasia) Impression: The patient takes 0.8 mg of Flomax at home. He had been out of his Flomax for a few days. He had not been able to urinate for 2 days prior to coming to the hospital. He had greater than 1000 cc of urine in his bladder when he was bladder scanned. Currently with a Clark catheter in place. His Flomax has been resumed and we will do a voiding trial in the next few days. (5) Metabolic acidosis Impression: Of undetermined significance. CT of the abdomen and pelvis has been ordered. Kidney function is improved. He will have a chemistry panel in the morning (6) CAD (coronary artery disease) Impression: The patient has had stent placement in the past. About 3 to 4 years ago he had a three-vessel CABG. He was complaining of chest discomfort and the patient's significant other says that he was holding the center of his chest complaining of pain last night. The patient does not recall this as he was so confused. He did have an EKG on admission that revealed atrial fibrillation. Will repeat an EKG right now and also get a stat troponin and trend his troponins overnight. He will continue aspirin and atorvastatin. He is on carvedilol 12.5 mg twice daily at home as well as lisinopril 40 mg daily. His lisinopril was held on admission due to his acute kidney injury. Will continue to hold it for now. (7) Paroxysmal atrial fibrillation Impression: The patients significant other states that he has paroxysmal atrial fibrillation and usually is not in atrial fibrillation. Currently at this time he is in atrial fibrillation with a controlled rate. He had not been taking his medications due to nausea and vomiting. He has been started back on his diltiazem and Coreg. Repeat EKG has been ordered. He will continue Eliquis for anticoagulation (8) Diabetes Impression: The patient has hyperglycemia but this may be reactive to his nausea vomiting and urinary retention and possible underlying infection. He is on Semglee 22 units in the evening. Will cut this back to 15 units. He will continue sliding scale coverage. (9) Diabetic neuropathy Impression: He has severe diabetic neuropathy. Continue his home dose of Lyrica and his home dose of hydrocodone as needed (10) Peripheral vascular disease Impression: Continue aspirin and statin medication (11) Chronic prescription opiate use Impression: The patient has chronic severe leg pain. This is due to diabetic neuropathy and peripheral vascular disease. He has as needed hydrocodone at his home dose available as needed for pain (12) Cerebrovascular disease Impression: Continue aspirin and statin medication. He has a history of a CVA in the past. (13) Carotid artery stenosis Impression: The patient did see a vascular surgeon but opted to not have any surgical intervention. Continue aspirin and statin medication (14) Marijuana use, continuous Impression: The patient goes in [facility] where he heavily uses marijuana but does smoke it every day normally. The patient's significant other has done research and is concerned he could have cyclical vomiting syndrome. I did discuss this briefly with the patient. Certainly he should abstain or at the very least cut back quite a bit going forward. (15) Hypokalemia Impression: He has severe hypokalemia. He will receive potassium IV riders today and he will have a chemistry panel in the morning. The goal would be to get his potassium level above 4.0 in light of his atrial fibrillation. (16) Hypomagnesemia Impression: The patient has severe hypomagnesemia with a magnesium level of 1.0. This will be aggressively repleted with IV magnesium sulfate today. The goal would be to get his magnesium level greater than 2.0 in light of his atrial fibrillation. He will have a magnesium level checked in the morning (17) Ambulatory dysfunction Impression: The patient has a walker at home but does not use it. The patient's significant other states that he has had a fall within the past 6 months. Will have physical therapy and Occupational Therapy evaluate the patient. Disposition: Inpatient hospitalization remains necessary. The patient still is having some confusion. He is requiring IV fluids and IV antibiotics and further workup is underway to determine the cause of all of this. I suspect he will be in the hospital for at least the next 24 to 48 hours. Time spent: 35 minutes
[2023-12-26 16:23] LABS: HCT - HEMATOCRIT 37.4 % (42.0-52.0); HGB - HEMOGLOBIN 13.2 g/dL (14.0-18.0); MEAN CORPUSCULAR HEMOGLOBIN 29.9 pg (27.0-31.0); MEAN CORPUSCULAR HGB CONC 35.3 g/dL (32.0-36.0); MEAN CORPUSCULAR VOLUME 84.6 fL (80.0-94.0); MEAN PLATELET VOLUME 9.7 fL (7.4-11.4); RED BLOOD COUNT 4.42 10^6/uL (4.70-6.10); RED CELL DISTRIBUTION WIDTH 12.7 % (12.0-15.0); WHITE BLOOD COUNT 15.2 x10^3/uL (4.8-10.8)
--- NOTE | 2023-12-26 16:56 | PHARMACY PROGRESS NOTE ---
- Best Possible Medication History Admit Date and Time: 12/26/23 1832 Processed by: Pharmacy (Medication Reconciliation completed by Pulmonologist Intensivist, Holly) Medications reviewed in ED?: No Medication History completed: Yes Patient Interview: Completed Secondary Source(s): Spouse/Significant other, Pharmacy records As the person ultimately responsible for medication therapy, providers are able to order a medication from an existing home medication list in [facility] via the "Reconcile Routine" prior to Confirmation of that medication by office support specialist. Such practice is discouraged except when the physician, in their clinical judgment, deems that a medical need exists for a medication without regard to previous use.
[2023-12-26] MEDS: SODIUM CHLORIDE FLUSH 0.9% 10 ML SYRINGE IVP PRN (17:18)
[2023-12-26] MEDS: HEPARIN 25000UNITS/500ML (D5W) 25,000 UNIT/500 ML BAG IV SCH (17:19)
--- NOTE | 2023-12-26 17:28 | CT Report ---
PROCEDURE: Abdomen/Pelvis WO INDICATIONS: abdominal pain, nausea and vomiting TECHNIQUE: A CT scan of the abdomen and pelvis was performed without the use of intravenous contrast. Images we re recorded and evaluated at appropriate window settings. Reformats: coronal and sagittal. For radiat ion dose reduction, the following was used: automated exposure control, adjustment of mA and/or kV ac cording to patient size. COMPARISON: CT abdomen and pelvis 05/15/2021 FINDINGS: Image quality: Diagnostic. Lower chest: Unremarkable. Liver: No contour-deforming mass. Gallbladder: Removed. Biliary tree: No intrahepatic or extrahepatic dilation, accounting for age. Spleen: No splenomegaly. Pancreas: No pancreatic ductal dilation. Adrenals: No adrenal nodule. Kidneys and ureters: No hydronephrosis. No contour-deforming mass. Stomach, bowel and peritoneum: No gastric or small bowel dilation. Mild fluid-filled small bowel loop s. No abnormal wall thickening. No pathologic free fluid. Colonic diverticula are present. Lymph nodes: No central or retroperitoneal adenopathy. Vessels: Infrarenal abdominal aorta measures 3.8 cm, unchanged. Reproductive organs: Unremarkable. Bladder: Catheter is present within the bladder. It is distended with fluid. Prominent nondependent a ir is present.. Pelvic lymph nodes: No adenopathy by size criteria. Bones: No aggressive osseous abnormality. Other: No significant ventral or inguinal hernia. IMPRESSION: Clark catheter is present within the bladder with mild to moderate urine. Prominent nondependent air. This could be reflective of catheter insertion. However, cystitis can have a similar appearance and recommend correlation to urinalysis. Diverticulosis. Mild fluid-filled bowel loops which could be related to enteritis. Reviewed by: Mila Negron MD on 12/26/2023 5:26 PM PDT Approved by: Mila Negron MD on 12/26/2023 5:26 PM PDT Station ID: [id number]
[2023-12-26] MEDS: HYDROcod/ACETAM 10 MG/325 MG TABLET PO PRN (18:06)
--- NOTE | 2023-12-26 18:52 | Discharge Plan ---
Discharge Plan Problem Reviewed?: Yes Disposition: 02 Transfer Acute Care Hosp Condition: Serious Diet: Cardiac Instruction Topics: ED Hyperglycemia Diabetic, ED Dehydration, ED Catheter Care Clark, ED Diet High Potassium, ED Retention Urinary Male Assessment: 1. NSTEMI The patient had an EKG on admission that revealed atrial fibrillation. Repeat EKG today reveals dynamic EKG changes with evidence of ischemia with T wave inversions in the anterolateral leads. At the time of admission it was not felt that he was having a cardiac issue. I obtained a troponin that was elevated at 129.7. The patient's partner indicated that he was having significant chest pain and clutching his chest at home prior to coming to the hospital. I have reached out to tertiary centers for possible transfer. Hopefully we will get an accepting facility and he will be transferred tonight. For now he has been started on a heparin drip. He is on a baby aspirin and atorvastatin 80 mg daily. I have cut his beta-phillip back to Coreg 3.125 mg twice daily. 2. Acute metabolic encephalopathy This was the reason the patient actually came to the hospital. He was extremely altered. His encephalopathy is likely multifactorial. Cannot rule out underlying infection. He was severely dehydrated. He had urinary retention and abdominal pain and was in the process of having a developing NSTEMI. His mentation today has improved but is not yet back to his cognitive baseline per the patient's significant other 3. Paroxysmal atrial fibrillation with slow ventricular response The patient's heart rate this afternoon has dropped into the 30s. He was previously on Coreg 12.5 mg twice daily and Cardizem. I have held his Cardizem and cut his Coreg back to 3.125 mg twice daily at the advice of my attending physician Dr. Morris. He should remain on telemetry 4. Nausea, vomiting and abdominal pain; possible gastroenteritis The patient was complaining of epigastric pain and chest pain and clearly is having some cardiac issues with no ischemic changes noted on EKG. I did obtain a CT of the abdomen and pelvis this afternoon which revealed multiple fluid- filled bowel loops that could be related to an enteritis. The patient may have a viral gastroenteritis as well. He was empirically started this morning on IV Zosyn which we will continue today in light of his leukocytosis 5. Leukocytosis This could be reactive to NSTEMI. However he had developed a mild metabolic acidosis and has evidence of enteritis on his CT scan. For now we will continue IV Zosyn 6. Urinary retention; BPH When the patient presented to the emergency room he had not voided and 48 hours. He had run out of Flomax and had not been taking it at home. Bladder scan revealed greater than 1000 mL of urine in the bladder. He now has a Clark catheter in place. Flomax 0.8 mg was reinitiated today. 7. Acute kidney injury Secondary to urinary retention. Improved with placement of Clark catheter and IV fluids 8. Metabolic acidosis of undetermined significance. This is mild. CT of the abdomen and pelvis reveals evidence of possible enteritis. Lactic acid level was normal. If he remains here overnight he should have a chemistry panel in the morning 9. Coronary artery disease The patient has a history of stent placement in the past. About 4 years ago he had a three-vessel CABG performed at [facility]. We have reached out to [facility] as well as other facilities to see if they would take him in transfer. He has dynamic EKG changes, elevated troponin and chest pain at the time of admission last night 10. Diabetes with hyperglycemia The patient had significant hyperglycemia at the time of admission last night. This could be reactive to his cardiac issues as well as nausea vomiting and urinary retention. Continue Semglee 15 units and low-dose sliding scale for now. Blood sugars have improved slightly today. 11. Diabetic neuropathy He has severe neuropathy. Continue his home dose of Lyrica and home dose of hydrocodone as needed 12. Peripheral vascular disease Continue 81 mg aspirin and 80 mg of atorvastatin 13. Cerebrovascular disease with history of a stroke Again continue aspirin and statin medication 14. Carotid artery stenosis The patient was evaluated by vascular surgery but decided against surgical intervention. Continue aspirin and statin medication 15. Chronic pain with chronic prescription opiate use Continue home dose of hydrocodone 10/325 mg 16. Marijuana use The patient uses marijuana every day and oftentimes goes on binges where he smokes it heavily. The patient's significant other was worried about cyclical vomiting syndrome. During this hospitalization I believe his nausea was likely related to enteritis as well as his NSTEMI. 17. Hypokalemia His potassium level this morning was 2.8. He received IV potassium riders today with the goal of getting his potassium level above 4.0 in light of his atrial fibrillation 18. Hypomagnesemia Magnesium level was 1.0. Magnesium was aggressively repleted today with the goal to get his magnesium level above 2.0 in light of his atrial fibrillation 19. Ambulatory dysfunction The patient has a walker at home but does not use it. He has had a fall within the past 6 months. I have asked physical therapy and Occupational Therapy to evaluate him. [facility] when to get physical therapy and Occupational Therapy to see him after his acute cardiac issues have been dealt with No Smoking: If you smoke, Please STOP! Call for help. Follow-up with: Ezra Loredo MD [Provider Admit Priv/Credential] - Louie Day MD [Provider Admit Priv/Credential] -
[2023-12-26 19:00] VITALS: O2SAT 96
--- NOTE | 2023-12-26 19:05 | DISCHARGE SUMMARY ---
Discharge Summary Admit Date: 12/25/23 Discharge Date: 12/26/23 Discharging Provider: Mona Gould PA-C Primary Care Provider: Dr Loredo Code Status: Attempt Resuscitation Condition at Discharge: Serious Discharge Disposition: 02 Transfer Acute Care Hosp - DIAGNOSES Discharge Diagnoses with Status of Each Condition: 1. NSTEMI The patient had an EKG on admission that revealed atrial fibrillation. Repeat EKG today reveals dynamic EKG changes with evidence of ischemia with T wave inversions in the anterolateral leads. At the time of admission it was not felt that he was having a cardiac issue. I obtained a troponin that was elevated at 129.7. The patient's partner indicated that he was having significant chest pain and clutching his chest at home prior to coming to the hospital. I have reached out to tertiary centers for possible transfer. Hopefully we will get an accepting facility and he will be transferred tonight. For now he has been started on a heparin drip. He is on a baby aspirin and atorvastatin 80 mg daily. I have cut his beta-phillip back to Coreg 3.125 mg twice daily. 2. Acute metabolic encephalopathy This was the reason the patient actually came to the hospital. He was extremely altered. His encephalopathy is likely multifactorial. Cannot rule out underlying infection. He was severely dehydrated. He had urinary retention and abdominal pain and was in the process of having a developing NSTEMI. His mentation today has improved but is not yet back to his cognitive baseline per the patient's significant other 3. Paroxysmal atrial fibrillation with slow ventricular response The patient's heart rate this afternoon has dropped into the 30s. He was previ ously on Coreg 12.5 mg twice daily and Cardizem. I have held his Cardizem and cut his Coreg back to 3.125 mg twice daily at the advice of my attending physician Dr. Morris. He should remain on telemetry 4. Nausea, vomiting and abdominal pain; possible gastroenteritis The patient was complaining of epigastric pain and chest pain and clearly is having some cardiac issues with no ischemic changes noted on EKG. I did obtain a CT of the abdomen and pelvis this afternoon which revealed multiple fluid- filled bowel loops that could be related to an enteritis. The patient may have a viral gastroenteritis as well. He was empirically started this morning on IV Zosyn which we will continue today in light of his leukocytosis 5. Leukocytosis This could be reactive to NSTEMI. However he had developed a mild metabolic acidosis and has evidence of enteritis on his CT scan. For now we will continue IV Zosyn 6. Urinary retention; BPH When the patient presented to the emergency room he had not voided and 48 hours. He had run out of Flomax and had not been taking it at home. Bladder scan revealed greater than 1000 mL of urine in the bladder. He now has a Clark catheter in place. Flomax 0.8 mg was reinitiated today. 7. Acute kidney injury Secondary to urinary retention. Improved with placement of Clark catheter and IV fluids 8. Metabolic acidosis of undetermined significance. This is mild. CT of the abdomen and pelvis reveals evidence of possible enteritis. Lactic acid level was normal. If he remains here overnight he should have a chemistry panel in the morning 9. Coronary artery disease The patient has a history of stent placement in the past. About 4 years ago he had a three-vessel CABG performed at [facility]. We have reached out to [facility] as well as other facilities to see if they would take him in transfer. He has dynamic EKG changes, elevated troponin and chest pain at the time of admission last night 10. Diabetes with hyperglycemia The patient had significant hyperglycemia at the time of admission last night. This could be reactive to his cardiac issues as well as nausea vomiting and urinary retention. Continue Semglee 15 units and low-dose sliding scale for now. Blood sugars have improved slightly today. 11. Diabetic neuropathy He has severe neuropathy. Continue his home dose of Lyrica and home dose of hydrocodone as needed 12. Peripheral vascular disease Continue 81 mg aspirin and 80 mg of atorvastatin 13. Cerebrovascular disease with history of a stroke Again continue aspirin and statin medication 14. Carotid artery stenosis The patient was evaluated by vascular surgery but decided against surgical intervention. Continue aspirin and statin medication 15. Chronic pain with chronic prescription opiate use Continue home dose of hydrocodone 10/325 mg 16. Marijuana use The patient uses marijuana every day and oftentimes goes on binges where he smokes it heavily. The patient's significant other was worried about cyclical vomiting syndrome. During this hospitalization I believe his nausea was likely related to enteritis as well as his NSTEMI. 17. Hypokalemia His potassium level this morning was 2.8. He received IV potassium riders today with the goal of getting his potassium level above 4.0 in light of his atrial fibrillation 18. Hypomagnesemia Magnesium level was 1.0. Magnesium was aggressively repleted today with the g oal to get his magnesium level above 2.0 in light of his atrial fibrillation 19. Ambulatory dysfunction The patient has a walker at home but does not use it. He has had a fall within the past 6 months. I have asked physical therapy and Occupational Therapy to evaluate him. Will defer to the oncoming facility on when to get physical therapy and Occupational Therapy to see him after his acute cardiac issues have been dealt with - HPI History of Present Illness: From the admission HP: H&P was conducted via video remotely, using [employer]. Patient is in NH. Physician is in NH. No one is at bedside. Pt able to give very little history. History also obtained from ER staff, chart. 83 yo M with PMH of DM type 2, AFib, HTN, HLD, CAD, PVD, Carotid Stenosis, CVA, BPH, DJD presented to the ER with c/o AMS and High BS. Pt cannot remember exactly why he came to the ER. He does feel confused. He does have nausea. There was evidence of emesis on his face upon arrival to the ER. Pt denies F/C/CP/SOB/cough. He feels "lousy": +fatigue, +nausea. No abdo pain. He does not remember his last BM or if he was able to urinate recently. ER staff reported that had told them that pt had run out of Flomax 5 days ago and has not been able to urinate x 2 days. Pt has presented to the ER with similar presentations in past. Pt was given IVF 500 ml via EMS. In the ER, HR 106, BP 152/105, WBC 17.1, K 3.0, Glc 385, CR 1.7, CO2 21, U/A neg, s ketones neg Bladder Scan: >1L Clark Catheter placed in the ER CXR: NAD CT Head: NAD Pt was given IVF, Reg Ins 10 U IV, Flomax, Norvasc, Eliquis, Coreg, Lisinopril, Diltiazem, KHCO3 25 meq PO, KCl 20 mEq IV in the ER. - HOSPITAL COURSE Hospital Course: The patient was admitted overnight by the telemedicine doctor. At that time it was felt that he had encephalopathy and was dehydrated due to nausea and vomiting. He was found to have significant urinary retention and had not voided in 2 days. He had a acute kidney injury as a result. He was admitted to the hospital. A Clark catheter was placed. He was started on IV fluids. Initially it was felt that this was what his issues were and no cardiac workup was performed. I do not believe the telemedicine doctor had good information due to the severity of his confusion at that time I was unable to see the patient until this afternoon. His significant other was present at the time of my visit today. She was able to give me good history regarding the patient's cardiac issues. She also said that yesterday evening he was holding his chest saying that it hurt. After the chart was reviewed I ordered a stat EKG and troponins to be trended. EKG revealed dynamic changes from the 1 on admission with T wave inversions in the anterolateral leads. His initial high-sensitivity troponin was 129.7. At this time he was started on a heparin drip. According to the patient's significant other he had his three- vessel CABG performed at [facility]. We have reached out to [facility] as well as other facilities and hopefully we will get an accepting doctor for him tonight. At this time the patient remains on a heparin drip. He is on an aspirin and high-dose statin medication. This afternoon he developed bradycardia. He remains in atrial fibrillation and his heart rate dropped down into the 30s. Due to this his Cardizem has been held and we have cut back his Coreg from 12.5 mg to 3.125 mg twice daily and I have asked the nursing staff to hold it tonight. Hopefully the patient will get a bed overnight and get to a facility for further cardiac workup. The patient also was complaining of epigastric abdominal pain. He had developed a mild metabolic acidosis this morning. Lactic acid level was negative. I got a CT scan of the abdomen and pelvis which revealed evidence of enteritis. He did have worsening leukocytosis this morning and he is empirically been started on IV Zosyn. He had significant electrolyte abnormalities that were aggressively repleted today. In regards to his urinary retention he has a Clark catheter in place and his Flomax has been restarted. Recall that he had been out of his Flomax for a couple of days which likely precipitated this event. Hopefully the patient will get transferred out [facility]. If not he will have labs drawn in the morning we will keep him on a heparin drip for now. His troponins will be trended overnight. At the advice of the hospitalist at [facility] I have ordered a stat repeat troponin. - ALLERGIES Allergies/Adverse Reactions: Allergies Allergy/AdvReac Type Severity Reaction Status Date / Time metoprolol AdvReac Severe Respiratory Verified 12/26/23 12:05 - MEDICATIONS Home Medications: Ambulatory Orders Medication Instructions Recorded Confirmed Omeprazole 20 mg PO BID 05/19/19 12/26/23 Tamsulosin HCl [Flomax] 0.8 mg PO DAILY 05/19/19 12/26/23 Triazolam 0.25 mg PO HS PRN 05/19/19 12/26/23 Apixaban [Eliquis] 5 mg PO BID 08/01/22 12/26/23 Aspirin [Vazalore] 81 mg PO DAILY 08/01/22 12/26/23 Amlodipine Besylate [Norvasc] 10 mg PO BID 12/26/23 12/26/23 Hydrocodone/Acetaminophen 1 each PO Q4H PRN 12/26/23 12/26/23 [Hydrocodone-Acetamin 10-325 mg] Insulin Glargine-Yfgn [Semglee] 22 units SUBQ QPM 12/26/23 12/26/23 Pregabalin [Lyrica] 150 mg PO TID 12/26/23 12/26/23 Rosuvastatin Calcium [Crestor] 40 mg PO DAILY 12/26/23 12/26/23 Sennosides/Docusate Sodium 1 each PO DAILY 12/26/23 12/26/23 [Docusate Sodium-Sennosides Tab] carvediloL [Coreg] 12.5 mg PO BID 12/26/23 12/26/23 - PHYSICAL EXAM AT DISCHARGE General Appearance: positive: No acute distress, Other (The patient is awake alert and oriented x 3 but still quite confused as to the circumstances of his hospitalization ) Eyes Bilateral: positive: Normal inspection ENT: positive: ENT inspection nml Neck: positive: Nml inspection Respiratory: positive: Chest non-tender, No respiratory distress, Breath sounds nml Cardiovascular: positive: Irregularly irregular, Bradycardia Abdomen: positive: No organomegaly, Nml bowel sounds, Tenderness (The patient has tenderness to palpation with some guarding in the epigastric area) Skin: positive: Color nml, No rash, Warm, Dry Extremities: positive: Non-tender, Full ROM Neurologic/Psychiatric: positive: CN's nml (2-12), Disoriented to time - LABS Result Diagrams: 12/26/23 16:10 12/26/23 04:45 - FOLLOW UP Follow Up: The patient should follow-up with his primary care physician Dr. Loredo when he is released from [facility]. He may need follow-up with Dr. Day from urology here in [place] for his urinary retention - TIME SPENT Time Spent in Discharge (Minutes): 45
[2023-12-26] MEDS ORDERED: carvediloL 12.5 MG TABLET PO SCH (21:00)
[2023-12-26] MEDS ORDERED: INSULIN GLARGINE-YFGN 300 UNIT/3 ML PEN SUBQ SCH (21:00)
[2023-12-26] MEDS ORDERED: carvediloL 3.125 MG TABLET PO SCH (21:00)
[2023-12-26] MEDS: PREGABALIN 25 MG CAPSULE PO SCH (21:30)
[2023-12-26] MEDS: INSULIN GLARGINE-YFGN 300 UNIT/3 ML PEN SUBQ SCH (21:43)
[2023-12-27 00:25] VITALS: BP 88/59
[2023-12-27] MEDS ORDERED: carvediloL 3.125 MG TABLET PO SCH (21:00)
== END 2023-12-27 01:30 | disposition short-term general hospital (02) ==
LOC: EDUNIT# → ED 08:19 → MS2 12-26 12:52
PROVIDERS: ADMIT Internal Medicine; ATTEND Physician Assistant
DX: I21.4 Non-ST elevation (NSTEMI) myocardial infarction (principal); G93.41 Metabolic encephalopathy; I48.0 Paroxysmal atrial fibrillation; R11.2 Nausea with vomiting, unspecified; R10.13 Epigastric pain; D72.829 Elevated white blood cell count, unspecified; N40.1 Benign prostatic hyperplasia with lower urinary tract symptoms; R33.8 Other retention of urine; N17.9 Acute kidney failure, unspecified; E87.20 Acidosis, unspecified; I25.10 Atherosclerotic heart disease of native coronary artery without angina pectoris; E11.65 Type 2 diabetes mellitus with hyperglycemia; E11.40 Type 2 diabetes mellitus with diabetic neuropathy, unspecified; E11.51 Type 2 diabetes mellitus with diabetic peripheral angiopathy without gangrene; I65.29 Occlusion and stenosis of unspecified carotid artery; G89.29 Other chronic pain; E87.6 Hypokalemia; E83.42 Hypomagnesemia; R26.9 Unspecified abnormalities of gait and mobility; E78.5 Hyperlipidemia, unspecified; M19.90 Unspecified osteoarthritis, unspecified site; E86.0 Dehydration; K21.9 Gastro-esophageal reflux disease without esophagitis; R94.31 Abnormal electrocardiogram [ECG] [EKG]; Z79.01 Long term (current) use of anticoagulants; Z79.4 Long term (current) use of insulin; Z79.82 Long term (current) use of aspirin; Z79.84 Long term (current) use of oral hypoglycemic drugs; Z79.899 Other long term (current) drug therapy; Z86.73 Personal history of transient ischemic attack (TIA), and cerebral infarction without residual deficits; Z91.81 History of falling; Z95.1 Presence of aortocoronary bypass graft; Z95.5 Presence of coronary angioplasty implant and graft
CPT/HCPCS: 36415; 51702; 70450; 71045; 74176; 80048; 80053; 81001; 82009; 82274; 82803; 83036; 83605; 83690; 83735; 84145; 84484; 85025; 85027; 85730; 93005; 96361; 96365; 96366; 96367; 96368; 99285; A9270; G0378; J1815; 81003; 87086

== ENCOUNTER 2024-03-08 08:03 | Observation (INO) ==
--- NOTE | 2024-03-08 08:41 | XRAY Report ---
PROCEDURE: XR Chest 1V INDICATIONS: chest pain TECHNIQUE: One view of the chest was acquired. COMPARISON: None. FINDINGS: Mild bibasilar consolidations partially obstructing the diaphragm commonly representing a combination of small pleural effusion, atelectatic changes, pneumonia or other process. Moderately prominent mekhi, moderate pulmonary vascular congestion. Moderate bilateral diffuse peribronchial thickening with moderate bilateral lower lobe opacities. Mul tifocal pneumonia, viral pneumonia, bronchopneumonia, or other process should be considered. Follow-u p is needed. No pneumothorax. Cardiopericardial silhouette within normal limits in size. IMPRESSION: Bibasilar consolidations, peribronchial thickening, patchy opacities as discussed above. Moderately prominent mekhi, pulmonary vascular congestion. Continued follow-up is needed. If symptoms persist or worsen, CT chest could be performed. Reviewed by: Bebeto Saini MD on 03/08/2024 8:40 AM PST Approved by: Bebeto Saini MD on 03/08/2024 8:40 AM PST Station ID: [id number]
[2024-03-08 08:51] LABS: BASOPHILS % (AUTO) 0.6 %; EOSINOPHILS # (AUTO) 0.1 10^3/uL (0.0-0.7); EOSINOPHILS % (AUTO) 0.9 %; HCT - HEMATOCRIT 34.6 % (42.0-52.0); HGB - HEMOGLOBIN 11.1 g/dL (14.0-18.0); LYMPHOCYTES # (AUTO) 1.7 10^3/uL (1.5-3.5); LYMPHOCYTES % (AUTO) 25.9 %; MEAN CORPUSCULAR HEMOGLOBIN 27.6 pg (27.0-31.0); MEAN CORPUSCULAR HGB CONC 32.1 g/dL (32.0-36.0); MEAN CORPUSCULAR VOLUME 86.1 fL (80.0-94.0); MEAN PLATELET VOLUME 9.9 fL (7.4-11.4); MONOCYTES # (AUTO) 0.5 10^3/uL (0.0-1.0); NEUTROPHILS # (AUTO) 4.3 10^3/uL (1.5-6.6); NEUTROPHILS % (AUTO) 65.3 %; PLT - PLATELET COUNT 168 10^3/uL (130-450); RED BLOOD COUNT 4.02 10^6/uL (4.70-6.10); RED CELL DISTRIBUTION WIDTH 13.2 % (12.0-15.0); WHITE BLOOD COUNT 6.6 x10^3/uL (4.8-10.8)
[2024-03-08 08:58] LABS: INR 1.9 (0.8-1.2); PT - PROTHROMBIN TIME 20.5 secs (9.9-12.6)
[2024-03-08 09:07] LABS: ALBUMIN 4.3 g/dL (3.2-5.5); ALBUMIN/GLOBULIN RATIO 1.7 (1.0-2.2); ALKALINE PHOSPHATASE 35 IU/L (42-121); ALT ALANINE AMINOTRANSFERASE 15 IU/L (10-60); AST ASPARTATE AMINOTRANSFERASE 20 IU/L (10-42); BUN - BLOOD UREA NITROGEN 21 mg/dL (6-20); CALCIUM 9.4 mg/dL (8.5-10.3); CARBON DIOXIDE - CO2 26 mmol/L (21-32); CHLORIDE 106 mmol/L (101-111); CREATININE 1.5 mg/dL (0.6-1.3); GFR - MDRD 45 (>89); GLUCOSE 73 mg/dL (74-104); POTASSIUM 3.6 mmol/L (3.5-4.5); SODIUM 139 mmol/L (135-145); TOTAL PROTEIN 6.8 g/dL (6.4-8.9)
[2024-03-08 09:09] LABS: LIPASE < 10 U/L (11-82)
[2024-03-08] MEDS ORDERED: iohexoL-300 100 ML VIAL ONE (09:23)
[2024-03-08 09:46] LABS: B. PARAPERTUSSIS- RESP PCR PAN NOT DETECTED; B. PERTUSSIS- RESP PCR PANEL NOT DETECTED; C. PNEUMONIAE- RESP PCR PANEL NOT DETECTED; CORONAVIRUS 229E-RESP PCR NOT DETECTED; CORONAVIRUS HKU1-RESP PCR NOT DETECTED; CORONAVIRUS NL63-RESP PCR NOT DETECTED; CORONAVIRUS OC43-RESP PCR NOT DETECTED; HUMAN METAPNEUMOVIRUS NOT DETECTED; INFLUENZA A- RESP PCR PANEL NOT DETECTED; INFLUENZA B - RESP PCR PANEL NOT DETECTED; M. PNEUMONIAE- RESP PCR PANEL NOT DETECTED; PARAINFLUENZA VIRUS 1 NOT DETECTED; PARAINFLUENZA VIRUS 2 NOT DETECTED; PARAINFLUENZA VIRUS 3 NOT DETECTED; PARAINFLUENZA VIRUS 4 NOT DETECTED; RHINOVIRUS/ENTEROVIRUS NOT DETECTED; RSV- RESP PCR PANEL NOT DETECTED; SARS-CoV-2 -RESP PCR PANEL NOT DETECTED
--- NOTE | 2024-03-08 10:09 | CT Report ---
PROCEDURE: CT Chest W INDICATIONS: worsening BLLL infiltrates CONTRAST: Omni 300 100ml TECHNIQUE: After the administration of intravenous contrast, a CT scan of the chest was performed. Images were recorded and evaluated at appropriate window settings. Reformats: axial MIP of the chest, coronal and sagittal. For radiation dose reduction, the following was used: automated exposure control, adjustme nt of mA and/or kV according to patient size. COMPARISON: Chest x-ray 02/11/2024 and 03/08/2024, CT abdomen pelvis without contrast 12/26/2023 FINDINGS: Image quality: Diagnostic. Thyroid Gland: Within normal limits. Cardiac: Heart size within normal limits. No pericardial effusion. RV: LV ratio within normal limits. No bowing of the interventricular septum. Coronary calcifications versus prior stent placements. Aorta: Thoracic aortic diameter within normal limits. Pulmonary Artery: Main pulmonary artery diameter within normal limits. Lungs: Passive atelectasis of the lower lobes secondary to a moderate right and small left pleural ef fusion (2/81). Background of mild centrilobular emphysema with peripheral reticulation at the lateral segments of the upper lobes (4/40). Pleura: No pneumothorax. Airways: The trachea and mainstem bronchi are patent. Lymph Nodes: Mediastinal and hilar lymphadenopathy is present. For reference, there is a 1.2 cm short axis right lower paratracheal node (2/42), and a 2.1 cm short axis right hilar node (2/50). Esophagus: Within normal limits. Bones: Status post prior CABG and median sternotomy. Upper Abdomen: Persistent 1.3 cm short axis leslee hepatis node (2/121), with interval decrease in sof t tissue fat stranding around the T1 and T2 segments of the duodenum and pancreatic uncinate process (/61). Soft tissues: No acute abnormality. IMPRESSION: 1.Moderate right and small left pleural effusions with associated passive atelectasis and thoracic ly mphadenopathy. These findings may be reactive to an underlying pneumonia versus congestive heart fail ure exacerbation. 2.Interval decrease in upper abdominal leslee hepatis findings with a persistent celiac axis lymphaden opathy. These findings may be videotape sales representative of resolving duodenitis or groove pancreatitis. Attentio n on follow-up imaging would be recommended to confirm resolution of this node. Reviewed by: John Krishnamurthy MD on 03/08/2024 10:08 AM PST Approved by: John Krishnamurthy MD on 03/08/2024 10:08 AM PST Station ID: [id number]
[2024-03-08] MEDS: FUROSEMIDE 40 MG/4 ML VIAL IVP STA (10:37)
--- NOTE | 2024-03-08 11:22 | ED Physician Documentation ---
History of Present Illness Stated complaint Stated Complaint: Chest/Throat px,Coughing up blood Chief complaint Chief Complaint: Resp History obtained from History obtained from: Patient Additonal information Additional information: The patient comes to the emergency department chief complaint of ongoing dyspnea. He states that he was in the hospital a couple of weeks ago for pneumonia, he believes, and that while he felt like he improved a little bit in the hospital, he has had persistent dyspnea which seems to be worsening again ever since. He states that it is much worse at night when he lays back and that he could not really sleep last night because he was so short of breath. The patient denies fevers. He states he also feels weak. He has had a persistent cough that seems to be worsening a little bit. He states that he did cough up some mild bloody sputum overnight. No edema in his legs. He has a history of coronary artery disease and congestive heart failure, but denies chest pain. He is not currently on antibiotics. No other complaints at this time. Review of the patient's records reveals that he was actually admitted to the hospital at the beginning of December, it appears for a number of problems including atrial fibrillation. The patient was seen in the ED about 3 weeks ago and diagnosed with pneumonia at which time he was prescribed antibiotics. Meds/All Home Medications Ambulatory Orders Medication Instructions Recorded Confirmed omeprazole 20 mg capsule,delayed 20 mg PO BID 05/19/19 01/22/24 release tamsulosin 0.4 mg capsule (Flomax) 0.8 mg PO DAILY 05/19/19 01/22/24 triazolam 0.25 mg tablet 0.25 mg PO HS PRN Insomnia 05/19/19 01/22/24 apixaban 5 mg tablet (Eliquis) 5 mg PO BID 08/01/22 01/22/24 aspirin 81 mg capsule (Vazalore) 81 mg PO DAILY 08/01/22 01/22/24 amlodipine 10 mg tablet (Norvasc) 10 mg PO BID 12/26/23 01/22/24 carvedilol 12.5 mg tablet 12.5 mg PO BID 12/26/23 01/22/24 hydrocodone 10 mg-acetaminophen 1 ea PO Q4H PRN Pain 5-7 12/26/23 01/22/24 325 mg tablet insulin glargine-yfgn 100 unit/mL 22 units subcut QPM 12/26/23 01/22/24 (3 mL) subcutaneous pen pregabalin 150 mg capsule (Lyrica) 150 mg PO TID 12/26/23 01/22/24 rosuvastatin 40 mg tablet (Crestor) 40 mg PO DAILY 12/26/23 01/22/24 sennosides 8.6 mg-docusate sodium 1 ea PO DAILY 12/26/23 01/22/24 50 mg tablet amoxicillin 875 mg-potassium 1 tab PO BID #20 tabs 01/22/24 clavulanate 125 mg tablet azithromycin 250 mg tablet 250 mg PO DAILY 4 days #4 tabs 01/22/24 albuterol sulfate 90 mcg/actuation 2 puff inhalation QID PRN 02/11/24 aerosol inhaler (Ventolin HFA) shortness of breath or wheezing #8.5 grams doxycycline hyclate 100 mg capsule 100 mg PO BID #14 caps 02/11/24 hydrochlorothiazide 25 mg tablet 25 mg PO DAILY #30 tabs 02/11/24 magnesium oxide 400 mg (241.3 mg 400 mg PO DAILY #30 tabs 02/11/24 magnesium) tablet Allergies Allergies Allergy/AdvReac Type Severity Reaction Status Date / Time metoprolol AdvReac Severe Respiratory Verified 03/08/24 08:29 [facility] Medical History Medical History (Updated 03/08/24 @ 11:36 by Marianela Garcia MD) A-fib Hx of essential hypertension Social History Social History (Updated 02/11/24 @ 09:50 by Dequan Cisse RN) Smoking Status: Never smoker Do you dip or chew tobacco?: No Do you vape?: No Living arrangement: At home Marital Status: Living Condition: With spouse/s.o. Relationship: Level: Independent Do you feel safe in your home environment?: Yes Suffered physical, verbal, emotional, or financial abuse?: No History of Abuse: No ETOH Use: None Substance Use: denies use POLST Patient has POLST: No Exam Constitutional normal general appearance and no apparent distress HENMT normocephalic, head/scalp atraumatic, external nose normal and oral mucous membranes normal Eyes EOMs intact bilaterally Neck/C-Spine visual inspection normal and supple Respiratory breath sounds equal bilaterally, normal respiratory effort and clear to auscultation bilaterally Cardiovascular normal heart rate noted, regular rhythm noted and no edema Gastrointestinal abdomen normal to inspection, abdomen soft to palpation, nontender to palpation and nondistended Genitourinary no CVA tenderness Extremities normal to inspection Neurology Alert, grossly intact Psychiatry mental status grossly normal Skin skin color normal Results Vitals Vitals: Vital Signs - 24 hr 03/08/24 08:30 03/08/24 08:34 03/08/24 08:45 Temperature 36.3 C L Temperature Source Temporal Artery Scan Pulse Rate 73 Respiratory Rate 20 Blood Pressure 117/63 O2 Saturation 88 L 89 L Oxygen Delivery Method Nasal Cannula O2 Source Room air Nasal cannula If not protocol: Oxygen Flow, liters/minute 2 2 Pain Intensity 7 03/08/24 09:37 Temperature Temperature Source Pulse Rate 75 Respiratory Rate 18 Blood Pressure 124/68 O2 Saturation 94 Oxygen Delivery Method O2 Source Nasal cannula If not protocol: Oxygen Flow, liters/minute 3 Pain Intensity Oxygen O2 Source Nasal cannula EKG (time done) 0850: EKG releavant findings:: EKG personally interpreted by author of this note. Relevant findings are: Rate: Rate (enter#) (79) Rhythm: Atrial fibrillation Fackler: LAD (Borderline) Intervals: Normal SD QRS: QRS normal Ischemia: Non specific changes Compare to prior EKG: Old EKG unavailable Computer interpretation: Agree with computer Labs Labs: Laboratory Tests 03/08/24 03/08/24 08:40 08:44 WBC 6.6 RBC 4.02 L Hgb 11.1 L Hct 34.6 L MCV 86.1 MCH 27.6 MCHC 32.1 RDW 13.2 Plt Count 168 MPV 9.9 Neut # (Auto) 4.3 Lymph # (Auto) 1.7 Mellette # (Auto) 0.5 Eos # (Auto) 0.1 Baso # (Auto) 0.0 Absolute Nucleated RBC 0.00 Nucleated RBC % 0.0 PT 20.5 H INR 1.9 H Sodium 139 Potassium 3.6 Chloride 106 Carbon Dioxide 26 Anion Gap 7.0 BUN 21 H Creatinine 1.5 H Estimated GFR (MDRD) 45 L Glucose 73 L Calcium 9.4 Total Bilirubin 1.0 AST 20 ALT 15 Alkaline Phosphatase 35 L Troponin I High Sens 15.2 B-Natriuretic Peptide 447 H Total Protein 6.8 Albumin 4.3 Globulin 2.5 Albumin/Globulin Ratio 1.7 Lipase < 10 L Nasal Adenovirus (PCR) NOT DETECTED Nasal B. parapertussis DNA (PCR) NOT DETECTED Nasal Coronavir 229E PCR NOT DETECTED Nasal Coronavir HKU1 PCR NOT DETECTED Nasal Coronavir NL63 PCR NOT DETECTED Nasal Coronavir OC43 PCR NOT DETECTED Nasal Enterovir/Rhinovir PCR NOT DETECTED Nasal Influenza B PCR NOT DETECTED Nasal Influenza A PCR NOT DETECTED Nasal Parainfluen 1 PCR NOT DETECTED Nasal Parainfluen 2 PCR NOT DETECTED Nasal Parainfluen 3 PCR NOT DETECTED Nasal Parainfluen 4 PCR NOT DETECTED Nasal RSV (PCR) NOT DETECTED Nasal B.pertussis DNA PCR NOT DETECTED Nasal C.pneumoniae (PCR) NOT DETECTED Dylan Human Metapneumo PCR NOT DETECTED Nasal M.pneumoniae (PCR) NOT DETECTED Nasal SARS-CoV-2 (PCR) NOT DETECTED Rads (name of study) Chest x-ray: Relevant Findings:: Final report received and See rad report Interpretation: Bilateral lower lung field infiltrates/consolidations, with peribronchial thickening and patchy opacities. Pulmonary vascular congestion. CT chest: Relevant Findings:: Final report received and See rad report (Moderate right and small left pleural effusions with passive atelectasis and thoracic lymphadenopathy. Pneumonia versus congestive heart failure exacerbation.) PD Medical Decision Making ED course Complexity details: reviewed old records, reviewed results, re-evaluated patient, considered differential and d/w patient ED course: The patient looked fairly well in the emergency department but he was hypoxic and became dyspneic with minimal exertion, such as sitting up in bed. He was also quite weak. I worked him up with laboratory studies which showed a BNP o irma 400. His white blood cell count was normal. Chest x-ray showed what appeared to be bilateral infiltrates in the lung lower valerio. I ordered a CT scan of the chest with IV contrast to further evaluate these ongoing and worsening infiltrates and this found that there were bilateral effusions and possibly infiltrate versus pulmonary edema. The patient continued to have room air saturations in the upper 80s and required 3 L of oxygen per nasal cannula to keep his oxygen saturation in the mid 90s. This was not the patient's normal as he does not use home O2 and has no history of primary lung disease. He was given Lasix 40 mg IV as well as dose of Rocephin and Zithromax. I discussed the case with the hospitalist on-call Dr. Walker, who has agreed to admit the patient to her service. Patient is agreeable to the plan. Discharge Plan Discharge Patient Disposition: [facility] DC/Xfer Condition: Serious Clinical Impression: Hypoxia Pneumonia Qualifiers: Pneumonia type: due to unspecified organism Laterality: right Lung location: lower lobe of lung Qualified Code(s): J18.9 - Pneumonia, unspecified organism Acute exacerbation of CHF (congestive heart failure) Qualifiers: Heart failure type: unspecified Qualified Code(s): I50.9 - Heart failure, unspecified Prescriptions: No Action triazolam 0.25 MG tablet 0.25 mg PO HS PRN (Reason: Insomnia) tamsulosin [Flomax] 0.4 MG capsule 0.8 mg PO DAILY omeprazole 20 MG capsule,delayed release(DR/EC) 20 mg PO BID Eliquis 5 MG tablet 5 mg PO BID Vazalore 81 MG capsule 81 mg PO DAILY carvedilol 12.5 MG tablet 12.5 mg PO BID amlodipine [Norvasc] 10 MG tablet 10 mg PO BID pregabalin [Lyrica] 150 MG capsule 150 mg PO TID hydrocodone-acetaminophen 1 EACH tablet 1 ea PO Q4H PRN (Reason: Pain 5-7) insulin glargine-yfgn 100 UNIT/ML insulin pen 22 units subcut QPM rosuvastatin [Crestor] 40 MG tablet 40 mg PO DAILY sennosides-docusate sodium 1 EACH tablet 1 ea PO DAILY amoxicillin-pot clavulanate 875-125 mg tablet 1 tab PO BID Qty: 20 0RF azithromycin 250 mg tablet 250 mg PO DAILY 4 Days Qty: 4 0RF Rx Instructions: start on day 2 of therapy doxycycline hyclate 100 mg capsule 100 mg PO BID Qty: 14 0RF albuterol sulfate [Ventolin HFA] 90 mcg/actuation HFA aerosol inhaler 2 puff inhalation QID PRN (Reason: shortness of breath or wheezing) Qty: 8.5 1RF hydrochlorothiazide 25 mg tablet 25 mg PO DAILY Qty: 30 2RF magnesium oxide 400 mg (241.3 mg magnesium) tablet 400 mg PO DAILY Qty: 30 0RF Print Language: Khmer Stand Alone Forms: PCP List
[2024-03-08] MEDS: cefTRIAXone 2 GM VIAL IVP STA (11:46)
[2024-03-08] MEDS: AZITHROMYCIN INJ 500 MG in SODIUM CHLORIDE 0.9% 250 ML IV STA (11:56)
[2024-03-08] MEDS: iohexoL-300 100 ML VIAL IVP ONE (12:29)
[2024-03-08] MEDS ORDERED: SODIUM CHLORIDE FLUSH 0.9% 10 ML SYRINGE IVP PRN (12:48)
[2024-03-08] MEDS ORDERED: ACETAMINOPHEN 325 MG TABLET PO PRN (12:48)
[2024-03-08] MEDS ORDERED: ONDANSETRON ODT 4 MG TABLET TL PRN (12:48)
[2024-03-08] MEDS ORDERED: ONDANSETRON 4 MG/2 ML VIAL IVP PRN (12:48)
--- NOTE | 2024-03-08 13:40 | HISTORY & PHYSICAL EXAMINATION ---
Chief Complaint Chief Complaint Chief Complaint: cough and sob History of Present Illness Admitted From Admitted From:: home via POV History Obtained From Records Reviewed: Expanse History obtained from: Dr. Garcia and patient Exam Limitations: cognitive deficits History of Present Illness HPI Comment/Other: 88-year-old gentleman who lives in his own home and came in via private vehicle for cough and shortness of breath. He has a history of acute on chronic congestive heart failure, pneumonia, carotid stenosis, atrial fibrillation on anticoagulation, COPD that is centrilobular (NOT on 02), and diabetes. He was admitted December 24 for altered mental status and a high blood sugar. He could not remember why he came to the emergency room and stated that he felt confused. There was emesis on his face. There was no respiratory issues. And he felt lousy. He had run out of his Flomax 5 days previously and had not been able to urinate for 2 days. He was felt to have urinary retention and bladder scan showed 1 L or more in the bladder any had a catheter placed. He was placed in observation status for dehydration and confusion due to acute renal failure. His creatinine was mildly elevated at 1.7 where baseline is 1.0. He was given IV fluids, potassium bicarb and potassium. Juarez was kept in place. After an observation stay he was sent home. Even though he has carotid stenosis, he opts for no surgery. January 21 he had cough, chest pain. Onset for 3 days. He told the ER doctor that he been recently admitted to [facility] for gastroenteritis and an NSTEMI. An angiogram was done without stent placements (he tells me he had bypass surgery 2 years ago at [facility]). With that ER visit, his white cell count was normal. Hemoglobin was low but similar to previous hemoglobin. Electrolytes were normal. Nasal smear positive for rhinovirus. He had a low glucose and he was administered sugar. Chest x-ray was concerning for right middle lobe infiltrate. He was given Rocephin and azithromycin. A dose of dexamethasone. Augmentin and azithromycin were then prescribed for home prescriptions. February 11 he had the same issues.. He presented with cough for 5 days. He was getting short of breath with even light activity. His legs were little bit more swollen. He denied any phlegm production or hemoptysis. His chest x-ray had vascular congestion and a right lower lobe infiltrate. It was taken into account that he been recently treated for pneumonia and had worsening cough. Infiltrate did not seem remarkably changed. He had also fallen and a CT of the head was done and was negative. He was discharged on doxycycline, albuterol, hydrochlorothiazide and magnesium. March 02 he had an echocardiogram done in the outpatient setting with his primary care provider Julio English from [facility]. He has mild concentric left ventricular hypertrophy. An ejection fraction of 60 to 65%. Mild to moderate right ventricular enlargement. Right ventricular systolic function normal. Moderate tricuspid regurgitation. RVSP at rest is 45 mmHg. The patient tells me that JUAN ALBERTO Tameka started him on a water pill for that. He now returns again to the ER by private vehicle. He is short of breath. His throat and his chest hurts but more with a tightness and not pain. He has completed his antibiotics and in spite of that he feels like he is still congested, coughing and this time is complaining of bloody phlegm in addition to shortness of breath and chest and throat pain. He is wondering if he needs more antitiobics. He is describing orthopnea and cannot sleep. Shortness of breath is worse laying down. He denies fevers. Does have edema in his legs. The chest pain is more of a tightness. Not a pain. It feels like he cannot breathe. Nonradiating. No arm pain, no diaphoresis, no palpitations. Doesn't change with exertion. The most he can walk is 50 feet with his cane, but that is unchanged. He last mowed his lawn 3 weeks ago! He is 88% on room air. He needs 2 L to saturate to 93%. He has a pulse oximeter at home. He tells me that he is usually between 98 to 93% on a regular basis. Respirations are 20. Pulse of 73. Temperature 36.3. Blood pressure is 117/63. He is baseline creatinine appears to be anywhere between 1.0-1.1. Today he is 1.5. BNP is 447. In April 2019 he was 119. January 2023 he was 443. Troponin is 15.2. White cell count is 6.6. He seems to have the same anemia of 11.1. Chest x-ray had bibasilar consolidations, peribronchial thickening, patchy opacities. A moderately prominent mekhi, pulmonary vascular congestion. CT of the chest was recommended for better visualization. The heart size was within normal limits without pericardial effusion. He has coronary calcifications with prior stent placements. Thoracic aorta diameter normal. Passive atelectasis at the lower lobe secondary to moderate right and small left pleural effusion. Centrilobular emphysema with peripheral reticulation. No pneumothorax. The radiologist felt that this could be either pneumonia versus congestive heart failure exacerbation. Mild mediastinal lymphadenopathy at 1.2 cm and is largest 2.1 cm. Persistent short axis leslee hepatis node. The emergency room provider treated him with Rocephin and Zithromax. She called to discuss the case with me. After discussing the case with her, seeing the patient, and reviewing his data, I am placing him in observation status and then postulated that this may be more right sided heart failure as the cause of his decompensation than true acute pneumonia. Meds/Allgy Home Medications Ambulatory Orders Medication Instructions Recorded Confirmed omeprazole 20 mg capsule,delayed 20 mg PO BID 05/19/19 03/08/24 release tamsulosin 0.4 mg capsule (Flomax) 0.8 mg PO DAILY 05/19/19 03/08/24 triazolam 0.25 mg tablet 0.25 mg PO HS PRN Insomnia 05/19/19 03/08/24 apixaban 5 mg tablet (Eliquis) 5 mg PO BID 08/01/22 03/08/24 amlodipine 10 mg tablet (Norvasc) 10 mg PO BID 12/26/23 03/08/24 carvedilol 12.5 mg tablet 18.75 mg PO BIDWM 12/26/23 03/08/24 hydrocodone 10 mg-acetaminophen 1 ea PO Q4H PRN Pain 5-7 12/26/23 03/08/24 325 mg tablet insulin glargine-yfgn 100 unit/mL 22 unit subcut QPM 12/26/23 03/08/24 (3 mL) subcutaneous pen pregabalin 150 mg capsule (Lyrica) 150 mg PO BID 12/26/23 03/08/24 rosuvastatin 40 mg tablet (Crestor) 40 mg PO QPM 12/26/23 03/08/24 albuterol sulfate 90 mcg/actuation 2 puff inhalation QID PRN 02/11/24 03/08/24 aerosol inhaler (Ventolin HFA) shortness of breath or wheezing #8.5 grams hydrochlorothiazide 25 mg tablet 25 mg PO DAILY #30 tabs 02/11/24 03/08/24 magnesium oxide 400 mg (241.3 mg 400 mg PO DAILY #30 tabs 02/11/24 03/08/24 magnesium) tablet aspirin 81 mg tablet,delayed 81 mg PO DAILY 03/08/24 03/08/24 release (Adult Low Dose Aspirin) cholecalciferol (vitamin D3) 25 1,000 unit PO DAILY 03/08/24 03/08/24 mcg (1,000 unit) capsule (Vitamin D3) isosorbide mononitrate 30 mg 30 mg PO DAILY 03/08/24 03/08/24 tablet,extended release 24 hr Allergies Allergies Allergy/AdvReac Type Severity Reaction Status Date / Time metoprolol AdvReac Severe Respiratory Verified 03/08/24 08:29 [facility] Medical History Medical History (Updated 03/08/24 @ 17:54 by Julia Walker MD) Community acquired pneumonia in the past and with 01/2024 admit CAD (coronary artery disease) NSTEMI late 12/2023. Angio done but no stents Cerebrovascular disease carotid stenosis with cognitive deficits Diabetes with neuropathy Carotid artery stenosis BPH (benign prostatic hyperplasia) Anticoagulant long-term use A-fib Hx of essential hypertension Family History Family History (Updated 03/08/24 @ 15:40 by Julia Walker MD) Father CAD (coronary artery disease) Mother Heart attack Sister Heart attack High blood pressure Social History Social History (Updated 03/08/24 @ 15:44 by Julia Walker MD) Smoking Status: Former smoker If you are a former smoker, when did you quit? (Date/Year): 1998 Number of Years Smoked: 35 How many cigarettes a day do you smoke? (20 cigarettes=1 Pk): 20 Second hand tobacco smoke exposure: Yes Do you dip or chew tobacco?: No Do you vape?: No Living arrangement: At home Marital Status: Domestic Partner Living Condition: With spouse/s.o. More Information: twice. Girlfriend is DPOA. 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 Travelled worldwide: [place], [place], [place], [place] Retired: Yes Service: No POLST Patient has POLST: No POLST Status: Full Code Review of Systems Constitutional Reports: Fatigue, Weakness, Changes in appetite or eating habits, Poor appetite and Other (slowly downhill for >2 years) Eyes Reports: Vision loss (with age. ), Decreased night vision and Other (hasn't seen eye MD for years and years so doesn't know about retinopathy) Ears, nose, mouth, and throat Reports: Hearing loss, Nasal congestion and Dentures; Denies: Vertigo, Difficulty swallowing, Neck pain or Throat swelling Cardiovascular Reports: chest pain, edema, swelling of feet/ankles, shortness of breath with exertion, shortness of breath when lying down and Decreased exercise tolerance; Denies: Irregular heart rate, palpitations, Syncope, lightheadedness, leg pain with exertion or bluish discoloration of hands/feet Respiratory Reports: Shortness of breath, Cough, Wheezing (just started this last week for the first time), Coughing up blood, Orthopnea, SOB at rest, SOB with exertion and other (has no previous hx of COPD as seen on CT chest) Gastrointestinal Denies: Abdominal pain, Abdominal distention, Nausea, Vomiting, Poor appetite, Difficulty swallowing, Change in bowel habits, Change in stool character or Melena Genitourinary Reports: Incontinence, Urinary frequency, Nocturia, Difficulty urinating, Change in urine stream and other (juarez was placed once. surprised when I explained prostatism to him) Musculoskeletal Reports: Stiffness (but no pain, and just feels stiff like he spends too much time sitting); Denies: Back pain or Neck pain Integumentary/Breast Denies: Rash, Itching, Dryness or Changing lesion Neurological Reports: General weakness, Numbness in extremities (dense peripheral neuropathy. Can only walk 50 feet bc of it. ) and Other (always has left eyelid droop); Denies: Headache, Focal weakness, Weakness in extremities, Dizziness, Vertigo, Confusion, Memory problems (pays the bills (no late payment, no going to collections)) or Slurred speech Psychiatric Reports: Loss of interest and Irritability; Denies: Depression (in spite of his deterioration. More than anything bored, and a little sad), Anxiety, Mood swings or Change in sleep pattern Endocrine Reports: Excessive urination, Fatigue and Cold intolerance; Denies: Excessive thirst or Polyphagia Hematologic/Lymphatic Denies: Anemia, Easy bruising, Petechiae or Easy bleeding Allergic/Immunologic Reports: Wheezing (just started this last week for the first time); Denies: Hives or Throat swelling Prior Level of Functionality: Still able to drive a car. Drove here. Did a lawnmower 3 weeks ago. Still able to dress himself and feed himself. Does not really clean house or cook. Still relies on himself to remember to take his own medicines. He does not feel like he has had mental decline. Just physical decline. Sedentary. Slower and slower due to cough, fatigue and sob Exam Exam 6 foot, 1 inch tall. 84.5 kg. January 21 he was 85.2. February 10 he was 86.7. Well-nourished, well-developed elderly gentleman. Slightly disheveled, unshaven. Slow psychomotor affect and he tells me that he has been like this all his life. Always a little slow to respond and a thinker Constitutional alert HENMT normocephalic, head/scalp atraumatic and hearing grossly normal bilaterally Eyes PERRL and EOMs intact bilaterally edema of lower eyelids, lid lag on left Neck/C-Spine visual inspection normal and cervical spine nontender Chest inspection of chest normal Respiratory Slightly tachypneic with talking to me. Little bit of exertion increased because of that. Increased AP diameter. He is a definite prolonged and exhalation phase. I:E ratio is about 1-4. But no outright wheezing. And occasional rhonchi was heard and he would cough and it would disappear. Manage breath sounds at the bases, dull Cardiovascular normal heart rate noted, no JVD and no edema (systolic murmur louder at LLSB. nonradiating. ) Gastrointestinal abdomen normal to inspection, abdomen soft to palpation, nontender to palpation and nontender to percussion Genitourinary no CVA tenderness and bladder normal to palpation Extremities normal to inspection, normal to palpation, no tenderness, full ROM and no joint enlargement trace ankles and distal walsh edema. Neurology quality analyst/technical writer II-XII intact, no movement abnormality noted, no focal motor deficit noted and sensory deficit noted (loss of light touch starting at the knees, sensation to touch gone by ankle) His affect seems so flat, and his responses so delayed that I thought this was a new finding with psychomotor slowing. He smiles when I ask him about this and says that "no, I have been like this all my life". Apparently people of commented on this before and is just who he is. Psychiatry mental status grossly normal Skin skin color normal and no rash no venous stasis. no cyanosis. no clubbing. Conclusion/Plan Problem List (1) Acute respiratory failure with hypoxia: Plan: Most likely due to problem #2 versus problem #3. At this point he only is requiring 2 to 3 L of nasal cannula. I am hoping that diuresis will reduce his oxygen needs. I am also hoping that he can go home without oxygen. Will see how he responds to treatment. (2) Cor pulmonale, acute: Plan: Unfortunately do not have access to his office records. I do see the echocardiogram done in our EMR March 02. His medications that could possibly cover for pulmonology include the hydrochlorothiazide but not much else. He is on carvedilol. I am assuming that is for rate reduction. His ejection fraction is normal. Plan: Observation status for now. I am hoping that I can diurese him overnight and improve his status so he can leave tomorrow. But his O2 sats will have to be back to room air. Lasix 20 mg IV push twice daily In an effort to help his pulmonary pressures see problem #2 and #3. (3) Consolidation lung: Plan: Debatable if this is just atelectasis in a patient who sits all day long. And then add small pleural effusions from congestive heart failure top of that. Or does he truly have an untreated pneumonia. He has had 2 courses of antibiotics. There is no fever. His white cell count is normal. Plan: My thought is that this is not pneumonia but the patient is worried that he has lingering pneumonia that is untreated especially because the hemoptysis. I think the hemoptysis is strictly from cough in a patient who has an anticoagulated status. And mild COPD. I will give azithromycin and ceftriaxone for 3 days only. I will order a procalcitonin. (4) COPD (chronic obstructive pulmonary disease): Plan: On examination he is a prolonged inspiration to exhalation ratio. He describes wheezing last week. He is a former smoker. So I am giving him a new diagnosis of COPD. The chest CT confirms centrilobular emphysema as well. He is surprised by this and never thought it would come to this. Plan: Solu-Medrol 40 mg IV push 3 times daily for 3 doses DuoNeb 4 times daily for at least today Azithromycin (5) Atrial fibrillation with RVR: Plan: At home he is on carvedilol. That will be resumed. Rate is currently controlled.He will also be continued on his DOAC in the form of Eliquis (6) Weakness: Plan: He describes a gradually deteriorating status over the last 2 to 3 years. But as of 3 weeks ago was still mowing the lawn. Although he walks slowly because of dense peripheral neuropathy, he uses a cane and can walk 50 feet. In the last week he has been unable to do any of that. Most likely due to his illness and fatigue. Plan: PT and OT murray (7) BPH (benign prostatic hyperplasia): Plan: Interesting gentleman and that he seems to have poor introspection or insight. Although he has a Juarez catheter in place because of urinary retention he is surprised when I tell him that he most likely has a very large prostate causing the urinary retention. I will start him on Flomax and Proscar. In the outpatient setting he should be seen by urology (8) Diabetes: Plan: At home he is on glargine 22 units in the evening. I will resume that while here. Check A1c in the morning. Do [id number] testing for sliding scale insulin before meals. 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 He also underwent a coronary angiogram in late December for angina. I will be calling [facility] to see if I can get old records. He also has carotid stenosis and does not want intervention for the carotid disease. He has beta-phillip will be resumed. His statin will be resumed. (10) Full code status: Plan: I have done an advance care planning conversation. Please see separate note with separate dictation. Lab Results Lab results reviewed: Yes 03/08/24 08:40 03/08/24 08:40 Core Measures Anticipated LOS I expect patient to be DC'd or transferred within 96 hours.: Yes DVT/VTE - Prophylaxis VTE/DVT Prophylaxis med ordered at admit?: Yes
--- NOTE | 2024-03-08 16:22 | PHARMACY PROGRESS NOTE ---
Best Possible Medication History Admit Date and Time: 03/08/24 1144 Home Medications Medication Instructions Recorded Confirmed Type omeprazole 20 mg capsule,delayed 20 mg PO BID 05/19/19 03/08/24 History release tamsulosin 0.4 mg capsule (Flomax) 0.8 mg PO DAILY 05/19/19 03/08/24 History triazolam 0.25 mg tablet 0.25 mg PO HS PRN Insomnia 05/19/19 03/08/24 History apixaban 5 mg tablet (Eliquis) 5 mg PO BID 08/01/22 03/08/24 History amlodipine 10 mg tablet (Norvasc) 10 mg PO BID 12/26/23 03/08/24 History carvedilol 12.5 mg tablet 18.75 mg PO BIDWM 12/26/23 03/08/24 History hydrocodone 10 mg-acetaminophen 1 ea PO Q4H PRN Pain 5-7 12/26/23 03/08/24 History 325 mg tablet insulin glargine-yfgn 100 unit/mL 22 unit subcut QPM 12/26/23 03/08/24 History (3 mL) subcutaneous pen pregabalin 150 mg capsule (Lyrica) 150 mg PO BID 12/26/23 03/08/24 History rosuvastatin 40 mg tablet (Crestor) 40 mg PO QPM 12/26/23 03/08/24 History albuterol sulfate 90 mcg/actuation 2 puff inhalation QID PRN 02/11/24 03/08/24 Rx aerosol inhaler (Ventolin HFA) shortness of breath or wheezing #8.5 grams hydrochlorothiazide 25 mg tablet 25 mg PO DAILY #30 tabs 02/11/24 03/08/24 Rx magnesium oxide 400 mg (241.3 mg 400 mg PO DAILY #30 tabs 02/11/24 03/08/24 Rx magnesium) tablet aspirin 81 mg tablet,delayed 81 mg PO DAILY 03/08/24 03/08/24 History release (Adult Low Dose Aspirin) cholecalciferol (vitamin D3) 25 1,000 unit PO DAILY 03/08/24 03/08/24 History mcg (1,000 unit) capsule (Vitamin D3) isosorbide mononitrate 30 mg 30 mg PO DAILY 03/08/24 03/08/24 History tablet,extended release 24 hr Processed by: Pharmacy Medications reviewed in ED?: No Medication History completed: Yes Patient Interview: Completed (by clinical pharmacy coordinator, Nico) Secondary Source(s): Spouse/Significant other (Toshia) and Previous admit records [facility] Statement: As the person ultimately responsible for medication therapy, providers are able to order a medication from an existing home medication list in [facility] via the "Reconcile Routine" prior to Confirmation of that medication by operations support analyst. Such practice is discouraged except when the physician, in their clinical judgment, deems that a medical need exists for a medication without regard to previous use.
[2024-03-08] MEDS: FUROSEMIDE 20 MG/2 ML VIAL IVP SCH (17:08)
[2024-03-08] MEDS: SODIUM CHLORIDE FLUSH 0.9% 10 ML SYRINGE IVP SCH (17:08)
[2024-03-08] MEDS: methylPREDNISolone SUCCINATE 40 MG/ML VIAL IVP SCH (17:08)
--- NOTE | 2024-03-08 17:57 | ADVANCE CARE PLANNING NOTE ---
Advance Care Planning Planning Encounter Date: 03/08/24 Time: 17:55 Purpose: Establish care goals and CODE STATUS Parties in Attendance: Hospitalist and patient Decisional Capacity of the Patient: Alert and oriented to person, place, time and situation but very surprised that he has gotten "to this point" Diagnosis for Encounter (1) Acute respiratory failure with hypoxia: (2) Cor pulmonale, acute: (3) Consolidation lung: (4) COPD (chronic obstructive pulmonary disease): (5) Atrial fibrillation with RVR: (6) Weakness: (7) Full code status: Summary: Discussion of CODE STATUS brought up today. He was annoyed that was asked again. And asked "why do all of you people keep on asking me that". He is particularly irritated about [facility]'s encounter with him when he was admitted for coronary artery disease in December 2023. Encounter Subjective/Patient's Story: Born and raised in [place]. Brought to this country [place] the age of 9. The first place he ever landed with [place]. Memories of [employer] still linger. But his father was a whanau support worker and he estimates he was taken back to [place] at least 4 times before he finally came back to [facility] at the age of 15 and state. 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 He describes his shorts being such things as "that October [place] flag you have on T-shirts". Traveled all over the world to include [place], [place], the [place], [place], [place]. He has been twice. Both ended in divorce. He says that his job really interfered with maintaining a stable relationship. Then at the age of 70 he was at an airport in [place]. And done in him that life was passing him by so he retired. He lived in [place] but then moved to the [place] 14 years ago. He got a girlfriend 9 years ago. They are not . She is his legal DPOA. He promises to bring in that paperwork. When I started talking about CODE STATUS and what his life has been like he is starting to realize that this is the first time he is starting to think about his age and senescence. 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 He loves fixing motorcycles, looking at motorcycles, cleaning motorcycles. He finally stopped racing them when he was in his 60s. But he still continued to look at cars, car engines, and just left everything about them. He cannot remember why but he stopped working on them about 2 years ago. He is finding himself less and less satisfied with his life. He is lonely, he is bored. [place] decent restaurants. He spends most of his days watching TV. He does love that is a huge TV and is able to watch the things or watch people do the things that he could no longer do. From a pain perspective his joints are stiff but not painful. 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 Because of the neuropathy he can only walk about 50 feet and uses a cane. He did have to use a walker after his bypass surgery 2 years ago but really does not use it very much now. He knows that he is slowing down, is very sad sanchez, and is unhappy about the quality of his life but does not know what he needs to do about it. He is starting to realize it at the age of 84 he is at the end of his life and needs to make some decisions. He states he wishes to be full code. I have gone over what a resuscitative effort would mean. I have also gone over the statistics of people who survive full codes. I asked him if he has the expectation that he will return to home. He said yes. I explained that after resuscitation, and an gentleman who has the comorbidities he has, he would most likely end up disabled. And who would be his caregiver. He does not think his girlfriend could do it. And he realizes he never wants to end up in a fci. His only other meaningful relationship is that his girlfriend is his sister. And his sister lives in [facility]. She was just here a few months ago. Hesitation about spending more time with her with her . He cannot stand his [id number]. Objective/Medical Story: Elderly gentleman with as yet undiagnosed COPD, coronary artery disease with stent and bypass, chronic A-fib on anticoagulation, diabetes, cor pulmonale who now presents with cough and shortness of breath. Although he has had a slow de terioration in physical status due to fatigue and aging, he really did not notice how much she declined until the summer. And then this December he has had a series of medical events resulting in a near chair bound status. Fatigue, cough. Today we are admitting him for cor pulmonale, COPD exacerbation is mild, possible pneumonia versus atelectasis, hypoxemia. I am just starting him on steroids, antibiotics, nebs, and diuresis for the cor pulmonale. Goals of Care: Because he has not been thinking very much about his process of getting older, he is surprised to realize he does not know what his goals of care are. While he wants to be in a place that would give him better food, and he wants to spend more time with his sister, he has not made any plans in that direction. He keeps on thinking that "someday" he would be able to go back to fixing his motorcycles and cars and he slowly started to realize that they will never come. At this time, he needs some alone time to think about all of these things. Plan: 1. At this time, by default, he is a full code. After he is discussed all of these above things with his girlfriend and his sister, he will let me know if he wants to fill out a POLST form for DO NOT RESUSCITATE. 2. I am asking him to bring in his DPOA paperwork for his girlfriend so we could include that on the chart. Code Status: Attempt Resuscitation Time spent on advance care plannin
[2024-03-08] MEDS: INSULIN LISPRO 300 UNIT/3 ML PEN SUBQ SCH (20:19)
[2024-03-08] MEDS: INSULIN GLARGINE-YFGN 300 UNIT/3 ML PEN SUBQ SCH (20:20)
[2024-03-08] MEDS: oxyCODONE 5 MG TABLET PO PRN (20:25)
[2024-03-08] MEDS: IPRATROPIUM/ALBUTEROL 3 ML NEB INH SCH (22:00)
[2024-03-09] MEDS ORDERED: WATER FOR INJECTION,STERILE 10 ML MC ONE (05:10)
[2024-03-09 05:34] LABS: HCT - HEMATOCRIT 35.4 % (42.0-52.0); HGB - HEMOGLOBIN 11.6 g/dL (14.0-18.0); LYMPHOCYTES # (AUTO) 0.7 10^3/uL (1.5-3.5); LYMPHOCYTES % (AUTO) 23.7 %; MEAN CORPUSCULAR HEMOGLOBIN 27.8 pg (27.0-31.0); MEAN CORPUSCULAR HGB CONC 32.8 g/dL (32.0-36.0); MEAN CORPUSCULAR VOLUME 84.9 fL (80.0-94.0); MEAN PLATELET VOLUME 10.5 fL (7.4-11.4); MONOCYTES % (AUTO) 0.7 %; NEUTROPHILS # (AUTO) 2.2 10^3/uL (1.5-6.6); NEUTROPHILS % (AUTO) 74.9 %; PLT - PLATELET COUNT 163 10^3/uL (130-450); RED BLOOD COUNT 4.17 10^6/uL (4.70-6.10); RED CELL DISTRIBUTION WIDTH 13.2 % (12.0-15.0)
[2024-03-09 05:54] LABS: CALCIUM 9.2 mg/dL (8.5-10.3); CREATININE 1.3 mg/dL (0.6-1.3); POTASSIUM 3.2 mmol/L (3.5-4.5)
[2024-03-09 07:56] VITALS: O2SAT 92
[2024-03-09] MEDS: POTASSIUM CHLORIDE 20 MEQ TABLET PO ONE (08:45)
[2024-03-09] MEDS ORDERED: AZITHROMYCIN INJ 500 MG in SODIUM CHLORIDE 0.9% 250 ML IV SCH (09:00)
[2024-03-09] MEDS ORDERED: cefTRIAXone 1 GM in SODIUM CHLORIDE 0.9% MINIBAG 100 ML IV SCH (09:00)
[2024-03-09 09:13] LABS: ESTIMATED AVERAGE GLUCOSE 148 mg/dL (70-100); HEMOGLOBIN A1c% 6.8 % (4.27-6.07)
[2024-03-09] MEDS: AZITHROMYCIN INJ 500 MG in SODIUM CHLORIDE 0.9% 250 ML IV SCH (09:21)
[2024-03-09] MEDS: cefTRIAXone 1 GM VIAL IVP SCH (09:21)
--- NOTE | 2024-03-09 12:45 | Discharge Summary ---
"Discharge Summary Admit Date: 03/09/24 Discharge Date: 03/09/24 Discharging Provider: Julia Walker MD Primary Care Provider: Ezra Loredo MD Code Status: Attempt Resuscitation DIAGNOSES Discharge Diagnoses with Status of Each Condition: 1. Acute respiratory failure with hypoxia 2. Acute cor pulmonale 3. Consolidation of lung 4. COPD without exacerbation, COPD is a new diagnosis. Centrilobular emphysema seen on CT. 5. Atrial fibrillation with RVR 6. Generalized weakness 7. Benign prostatic hypertrophy with retention 8. Type 2 diabetes mellitus, with long-term use of insulin, with polyneuropathy, controlled 9. History of coronary artery disease with bypass surgery, recent coronary angiogram for NSTEMI December 2023. 10. Full CODE STATUS. HPI History of Present Illness: 88-year-old gentleman who lives in his own home and came in via private vehicle for cough and shortness of breath. He has a history of acute on chronic congestive heart failure, pneumonia, carotid stenosis, atrial fibrillation on anticoagulation, COPD that is centrilobular (NOT on 02), and diabetes. He was admitted December 24 for altered mental status and a high blood sugar. He could not remember why he came to the emergency room and stated that he felt confused. There was emesis on his face. There was no respiratory issues. And he felt lousy. He had run out of his Flomax 5 days previously and had not been able to urinate for 2 days. He was felt to have urinary retention and bladder scan showed 1 L or more in the bladder any had a catheter placed. He was placed in observation status for dehydration and confusion due to acute renal failure. His creatinine was mildly elevated at 1.7 where baseline is 1.0. He was given IV fluids, potassium bicarb and potassium. Clark was kept in place. After an observation stay he was sent home. Even though he has carotid stenosis, he opts for no surgery. January 21 he had cough, chest pain. Onset for 3 days. He told the ER doctor that he been recently admitted to [facility] for gastroenteritis and an NSTEMI. An angiogram was done without stent placements (he tells me he had bypass surgery 2 years ago at [facility]). With that ER visit, his white cell count was normal. Hemoglobin was low but similar to previous hemoglobin. Electrolytes were normal. Nasal smear positive for rhinovirus. He had a low glucose and he was administered sugar. Chest x-ray was concerning for right middle lobe infiltrate. He was given Rocephin and azithromycin. A dose of dexamethasone. Augmentin and azithromycin were then prescribed for home prescriptions. February 11 he had the same issues.. He presented with cough for 5 days. He was getting short of breath with even light activity. His legs were little bit more swollen. He denied any phlegm production or hemoptysis. His chest x-ray had vascular congestion and a right lower lobe infiltrate. It was taken into account that he been recently treated for pneumonia and had worsening cough. Infiltrate did not seem remarkably changed. He had also fallen and a CT of the head was done and was negative. He was discharged on doxycycline, albuterol, hydrochlorothiazide and magnesium. March 02 he had an echocardiogram done in the outpatient setting with his primary care provider Julio English from [facility]. He has mild concentric left ventricular hypertrophy. An ejection fraction of 60 to 65%. Mild to moderate right ventricular enlargement. Right ventricular systolic function normal. Moderate tricuspid regurgitation. RVSP at rest is 45 mmHg. The patient tells me that JUAN ALBERTO English started him on a water pill for that. He now returns again to the ER by private vehicle. He is short of breath. His throat and his chest hurts but more with a tightness and not pain. He has completed his antibiotics and in spite of that he feels like he is still congested, coughing and this time is complaining of bloody phlegm in addition to shortness of breath and chest and throat pain. He is wondering if he needs more antitiobics. He is describing orthopnea and cannot sleep. Shortness of breath is worse laying down. He denies fevers. Does have edema in his legs. The chest pain is more of a tightness. Not a pain. It feels like he cannot breathe. Nonradiating. No arm pain, no diaphoresis, no palpitations. Doesn't change with exertion. The most he can walk is 50 feet with his cane, but that is unchanged. He last mowed his lawn 3 weeks ago! He is 88% on room air. He needs 2 L to saturate to 93%. He has a pulse oximeter at home. He tells me that he is usually between 98 to 93% on a regular basis. Respirations are 20. Pulse of 73. Temperature 36.3. Blood pressure is 117/63. He is baseline creatinine appears to be anywhere between 1.0-1.1. Today he is 1.5. BNP is 447. In April 2019 he was 119. January 2023 he was 443. Troponin is 15.2. White cell count is 6.6. He seems to have the same anemia of 11.1. Chest x-ray had bibasilar consolidations, peribronchial thickening, patchy opacities. A moderately prominent mekhi, pulmonary vascular congestion. CT of the chest was recommended for better visualization. The heart size was within normal limits without pericardial effusion. He has coronary calcifications with prior stent placements. Thoracic aorta diameter normal. Passive atelectasis at the lower lobe secondary to moderate right and small left pleural effusion. Centrilobular emphysema with peripheral reticulation. No pneumothorax. The radiologist felt that this could be either pneumonia versus congestive heart failure exacerbation. Mild mediastinal lymphadenopathy at 1.2 cm and is largest 2.1 cm. Persistent short axis leslee hepatis node. The emergency room provider treated him with Rocephin and Zithromax. She called to discuss the case with me. After discussing the case with her, seeing the patient, and reviewing his data, I am placing him in observation status and then postulated that this may be more right sided heart failure as the cause of his decompensation than true acute pneumonia. CONSULTS | PROCEDURES Procedures: Chest x-ray had bibasilar consolidations, peribronchial thickening, patchy opacities in the bilateral lower lobes. Multifocal pneumonia, viral pneumonia, bronchopneumonia or other process should be considered. Mildly prominent mekhi and moderate pulmonary vascular congestion. CT of the chest was done to confirm chest x-ray findings. Cardiac size was within normal limits. Coronary calcifications versus prior stent placements. Pulmonary artery diameter normal. Passive atelectasis of the lower lobe secondary to a moderate right and small left pleural effusion. This is in the background of mild centrilobular emphysema with peripheral reticulation at the lateral aspects of the upper lobe. Mediastinal and hilar lymphadenopathy is present. In the upper abdomen he is a 1.3 cm short axis leslee hepatis node with interval decrease soft tissue fat stranding of the duodenum and pancreatic uncinate process when compared to a CT December 26, 2023. HOSPITAL COURSE Hospital Course: I was able to review his admission from December 2023 to [facility]. He had been seen in our emergency room altered mental status and high blood sugar December 24. We found him to be obstructed from prostatism, with uncontrolled diabetes, dehydration. He responded to IV fluids, antibiotics and a Clark catheter. Because he had an elevated troponin, he was transferred to [facility] on December 26. He has a history of coronary artery disease with bypass surgery x 3 in 2019. He also had remote PCI unknown date. He has heart failure with preserved ejection fraction. Atrial fibrillation in the postoperative setting. A history of stroke without residual deficits. He was admitted for 2 days here and on the second day he had improvement in mental status, but had epigastric pain. Troponin was elevated to 130 and the EKG showed new T wave inversions in the anterolateral leads. That is when cardiology was consulted and the patient was transferred to [facility]. At [facility] his acute encephalopathy had resolved. Probably from urinary retention in the setting of [facility]. Documentation suggests similar presentations in the past. He underwent an angiogram December 26 which revealed multivessel disease. He had ARMENTA angiography and saphenous vein graft angiography via the right femoral artery. He had multivessel disease with a patent saphenous vein graft to the RCA, patent saphenous vein graft to the obtuse marginal, ARMENTA to the LAD demonstrated 90% ostial stenosis. Distal circumflex disease and diagonal branch vessel disease were present. No comment on ejection fraction but they note that he has preserved ejection fraction is one of his diagnoses. Patient care team at [facility] is Wilder Toribio DO. 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 I spent quite a bit of time going over the patient's chart, his problems and going over each of these problems individually to explain to him what they meant. He is most startled by the fact that he has a prostate issue. And that he has a new diagnosis of COPD as seen on CT that shows centrilobular emphysema. I have also explained to him that I feel he has new cor pulmonale. That may have been recognized by his primary care provider office and that is why he was started on hydrochlorothiazide. While here, he received empiric antibiotic therapy, steroids, DuoNeb, and Lasix. He had some psychomotor slowing and lethargy on admission that resolved the next day. He was mildly hypoxic on admission and he was no longer hypoxic on the day of discharge. Oxygen desat test was done with rest and with stress which was walking in his room. He did not require oxygen and he is being sent home without oxygen. I have E scribed Spiriva and Ventolin to the [facility] for him to picker. I have also E scribed Lasix. I would like him to be seen by his primary care provider office and get a BMP, BNP. Advance care planning conversation was held. This patient is lonely, bored. Not satisfied with his life at all as it is. But is startled at the idea of discussing end-of-life issues and said that he never thought about it. I had the same conversation with his girlfriend. She is not his DPOA even though he stated she was. He reluctantly shared that his DPOA is his sister. And he is never got around to doing the paperwork to make it his girlfriend. I strongly encouraged him to make that happen if he wants his girlfriend to be the DPOA. He does not know if he wants to be a full code or not. I did discuss resuscitative effort and he said it was a very grim picture and he did not know if he wanted to do that. But at the same time he did not know if he wanted to just let go and let mother nature take its course. I told him that he, his girlfriend, and his sister have a lot to talk about. He is discharged in stable condition. The above medication changes are noted.`Because I had to review his medical records from [facility], go over his problem list and explain it to him in depth, and describe his new medications, greater than 30 minutes was spent coordinating discharge. This document was made in part using voice recognition software. While efforts are made to proofread this document, sound alike and grammatical errors may occur. ALLERGIES Allergies Allergy/AdvReac Type Severity Reaction Status Date / Time metoprolol AdvReac Severe Respiratory Verified 03/08/24 08:29 MEDICATIONS Ambulatory Orders Medication Instructions Recorded Confirmed omeprazole 20 mg capsule,delayed 20 mg PO BID 05/19/19 03/08/24 release tamsulosin 0.4 mg capsule (Flomax) 0.8 mg PO DAILY 05/19/19 03/08/24 triazolam 0.25 mg tablet 0.25 mg PO HS PRN Insomnia 05/19/19 03/08/24 apixaban 5 mg tablet (Eliquis) 5 mg PO BID 08/01/22 03/08/24 amlodipine 10 mg tablet (Norvasc) 10 mg PO BID 12/26/23 03/08/24 carvedilol 12.5 mg tablet 18.75 mg PO BIDWM 12/26/23 03/08/24 hydrocodone 10 mg-acetaminophen 1 ea PO Q4H PRN Pain 5-7 12/26/23 03/08/24 325 mg tablet insulin glargine-yfgn 100 unit/mL 22 unit subcut QPM 12/26/23 03/08/24 (3 mL) subcutaneous pen pregabalin 150 mg capsule (Lyrica) 150 mg PO BID 12/26/23 03/08/24 rosuvastatin 40 mg tablet (Crestor) 40 mg PO QPM 12/26/23 03/08/24 albuterol sulfate 90 mcg/actuation 2 puff inhalation QID PRN 02/11/24 03/08/24 aerosol inhaler (Ventolin HFA) shortness of breath or wheezing #8.5 grams hydrochlorothiazide 25 mg tablet 25 mg PO DAILY #30 tabs 02/11/24 03/08/24 magnesium oxide 400 mg (241.3 mg 400 mg PO DAILY #30 tabs 02/11/24 03/08/24 magnesium) tablet aspirin 81 mg tablet,delayed 81 mg PO DAILY 03/08/24 03/08/24 release (Adult Low Dose Aspirin) cholecalciferol (vitamin D3) 25 1,000 unit PO DAILY 03/08/24 03/08/24 mcg (1,000 unit) capsule (Vitamin D3) isosorbide mononitrate 30 mg 30 mg PO DAILY 03/08/24 03/08/24 tablet,extended release 24 hr furosemide 20 mg tablet (Lasix) 20 mg PO DAILY #30 tabs 03/09/24 tiotropium bromide 1.25 2 puff inhalation DAILY 30 days #4 03/09/24 mcg/actuation mist for inhalation grams (Spiriva Respimat) PHYSICAL EXAM AT DISCHARGE General Appearance: positive No acute distress and Alert (Much more fluid and lucid than it was last night.Elderly gentleman who looks older than stated age.) Eyes Bilateral: positive PERRL and EOMI ENT: positive No signs of dehydration Neck: positive Thyroid nml and No JVD Respiratory: positive No respiratory distress, Breath sounds nml and Other (He has prolonged I: E ratio. Last night he had mild tachypnea and speaking to me. This morning he is normal. He did not have any wheezing with me. However he remarks that he did have wheezing last week.) Abdomen: positive Non-tender, No organomegaly and Nml bowel sounds Skin: positive Color nml, No rash and Warm Extremities: positive Full ROM, Nml appearance and No pedal edema Neurologic/Psychiatric: positive Oriented x3 (In the middle of our discharge discussion, the patient had a phone call from [address] [place]. I watched him struggle to try and cancel those Ignyta but he was able to do it. It took him about 15 minutes), CN's nml (2-12) and Motor nml LABS 03/09/24 04:56 03/09/24 04:56 TIME SPENT Time Spent in Discharge (Minutes): 40 Discharge Plan Discharge Patient Disposition: 06 Home Health Service Condition: Fair Medically Cleared Date:: 03/09/24 Prescriptions: New furosemide [Lasix] 20 mg tablet 20 mg PO DAILY Qty: 30 2RF Spiriva Respimat 1.25 mcg/actuation mist 2 puff inhalation DAILY 30 Days Qty: 4 2RF Continued triazolam 0.25 MG tablet 0.25 mg PO HS PRN (Reason: Insomnia) tamsulosin [Flomax] 0.4 MG capsule 0.8 mg PO DAILY omeprazole 20 MG capsule,delayed release(DR/EC) 20 mg PO BID Eliquis 5 MG tablet 5 mg PO BID carvedilol 12.5 MG tablet 18.75 mg PO BIDWM amlodipine [Norvasc] 10 MG tablet 10 mg PO BID pregabalin [Lyrica] 150 MG capsule 150 mg PO BID Patient Comments: Used to take TID, but has been receiving BID hydrocodone-acetaminophen 1 EACH tablet 1 ea PO Q4H PRN (Reason: Pain 5-7) insulin glargine-yfgn 100 UNIT/ML insulin pen 22 unit subcut QPM rosuvastatin [Crestor] 40 MG tablet 40 mg PO QPM albuterol sulfate [Ventolin HFA] 90 mcg/actuation HFA aerosol inhaler 2 puff inhalation QID PRN (Reason: shortness of breath or wheezing) Qty: 8.5 1RF magnesium oxide 400 mg (241.3 mg magnesium) tablet 400 mg PO DAILY Qty: 30 0RF aspirin [Adult Low Dose Aspirin] 81 mg tablet,delayed release (DR/EC) 81 mg PO DAILY isosorbide mononitrate 30 mg tablet extended release 24 hr 30 mg PO DAILY cholecalciferol (vitamin D3) [Vitamin D3] 25 mcg (1,000 unit) capsule 1,000 unit PO DAILY Discontinued hydrochlorothiazide 25 mg tablet 25 mg PO DAILY Qty: 30 2RF Diet: Low Sodium Interventions: Discharge Last Done: 03/09/24 17:08 Discharge Checklist - Nursing Last Done: 03/09/24 17:08 Health Concerns: You are an elderly gentleman who lives alone but is trying to rely more more on your girlfriend to help you get things done. You tell me that you are not really satisfied with your life right now because of the loss of mobility, more difficulty in traveling, and the [place] 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 It is just getting too hard. You are lonely, you are bored. You do like that you have a huge TV and that TV allows you to watch things or watch people doing the things that you can no longer do. You came to the hospital because you were tired and you are short of breath. But this is in context of a gradually deteriorating status since this summer. He was admitted in December because your glucose was uncontrolled, you were confused, and you were brought in with vomit on your face. You had urinary retention from a large prostate and a Clark had to be placed. Later on in December you went to [facility] because you are having chest pain and we felt you are having a small heart attack. At [facility] you underwent a angiogram. Although you have severe coronary artery disease, and your previous bypass was intact, they did not have to do any intervention such as a stent. You then came in January 21 with cough and chest pain. We found you to have a severe chest cold and your chest x-ray showed possible pneumonia in the right lung. But it was very vague. You were given antibiotics and steroids and sent home. You returned February 11 with the same issues. Your chest x-ray had some heart congestion in the same pneumonia that was unchanged. But you did not meet criteria to be admitted. Your oxygen was normal. Your blood work was stable. And although you felt weak and tired, we cannot admit people for being weak and tired and you were sent home. Your primary care provider office did an echocardiogram to look at your heart March 02. JUAN ALBERTO milner started you on a new diuretic. That is because he found you to have new onset right sided heart failure. You then returned to the emergency room again on March 08. Coughing, fatigued, short of breath. And you are worried about your oxygen. You check your oxygen at home on a daily basis and is usually between 98 to 94%. Here you were 88%. You are not having a heart attack. You really do not have pneumonia. A CAT scan of your chest was done to make sure you were not having blood clots and we found you to have emphysema in the central part of your lungs. I treated you as emphysema and bronchitis and gave you nebulizers, steroids. I also treated you as right-sided heart failure and gave you Lasix to urinate. By the next day, today, your oxygen level is now 94% on room air. He was still weak and tired but your blood pressure is stable, and your oxygen is stable. We strongly recommend that you get some home health at home. Physical therapy and Occupational Therapy can see you in your home. As well as a home health nurse to check your lungs and your glucose. You initially said no and then at the last second changed her mind and are willing to get a home health nurse. Care Plan Goals: We discussed your advance care planning while here. We are talking about end-of-life and where you want to be. We also discussed if you want to be fully resuscitated. You do not know what you want to do. He would like to sit down and talk about it with your girlfriend and your sister and then make a decision. We also talked about you possibly moving to [facility] to be closer to your sister. Or even just moving to the [facility] to get better help as you get older. You have many decisions to make and will need loss of conversation before you make a decision. Assessment: Patient is alert, oriented to person, place, time but exhibits poor insight into his illness. Having an advance care planning conversation really startled him. He says that he knows that he is failing, that he is not happy with his current physical status, but he is never thought about end-of-life care. Plan of Treatment: 1. Please see your primary care provider in follow-up. They need to check your lungs on the new Spiriva. They also need to check a BMP, and a BNP to follow-up on the use of the Spiriva and the Lasix. 2. I am starting you on new inhalers for your emphysema. He will stay on Ventolin. But I am adding Spiriva 2 puffs once a day. 3. I am not continuing antibiotics or steroids. 3. I am stopping the hydrochlorothiazide and starting you on Lasix 20 mg a day for diuresis. I am also starting you on potassium 20 mill equivalents a day. 4. Did check your oxygen before you left. We checked you at rest and rechecked you with walking. Your oxygen saturations stayed above 90%. As such, you do not qualify for oxygen at home Print Language: Yakut Follow-up Care: Wilder Toribio DO [Physician No Access] - Ezra Loredo MD [Primary Care Provider] -"
--- NOTE | 2024-03-09 16:36 | PT Plan of Care ---
PT Inpatient Plan of Care DIAGNOSIS Diagnosis: ARF w/ hypoxia Diagnosis: cor pulmonale Referring Provider: Julia Walker Patient Status: Observation CHIEF COMPLAINT Chief Complaint: weakness Onset of Chief Complaint: MANAGEMENT COORDINATOR with gradual progression over several months MEDICAL/SURGICAL HISTORY Medical History (Updated 03/09/24 @ 12:43 by Julia Walker MD) (HFpEF) heart failure with preserved ejection fraction Chronic pain syndrome BPH with obstruction/lower urinary tract symptoms Vitamin B12 deficiency on monthly IM injection Community acquired pneumonia in the past and with 01/2024 admit CAD (coronary artery disease) s/p CABG 3V 2019, PCI. NSTEMI late 12/2023. Angio done @ [facility]. Multivessel dz, chronic, no obstruction. Nuc med recommended but he wanted to go home so not done. Carvedilol increased and added Imdur. If further ss do nuc med. Cerebrovascular disease carotid stenosis with cognitive deficits, hx of CVA no plegia residuals Diabetes with neuropathy and mod severe chronic pain. A1c 6.8% 12/2023 and 02/2024. Carotid artery stenosis BPH (benign prostatic hyperplasia) Anticoagulant long-term use A-fib Hx of essential hypertension Surgical History (Updated 03/09/24 @ 12:43 by Julia Walker MD) Hx of melanoma excision S/P CABG (coronary artery bypass graft) 3 V, 2019 BALANCE/FUNCTIONAL RESULTS Sitting Balance: Good Standing Balance: Fair Tinetti Composite Score (Balance + Gait): 19 Tinetti Assessment Interpretation: Moderate Fall Risk ASSESSMENT Assessment: Pt is a pleasantly confused 83yo M referred for PT eval d/t weakness. Admitted with ARF w/ hypoxia and initially on 2L O2. Now on RA. Pt lives in [facility] with S.O. He is Dereck at baseline using a walking stick and states he has a FWW if needed. 3STE home, walk in shower, no shower chair. Upon PT eval SpO2 92% at rest on RA. Pt is A&Ox3 but reports confusion regarding situation and dc plan. Pt states "I have questions for the pharmacist about my credit card charges." Pt is perseverative on credit card bill but is able to redirect attention to PT eval and agrees to discuss concerns later with RN/SW as appropr iate. Transfers well with cueing but requires up to minAx1 w/ FWW during ambulation. Able to amb approx 130' and completes stair training 2x5 steps with HR use. Desats to 87% after activity but recovers within 1-2 min to 93%. Pt will benefit from skilled PT in acute setting to improve safety and gait pattern. When medically clear, PT rec dc home with HHPT/OT/bathaide as pt is far below baseline. Pt may also benefit from HHRN as pt is forgetful and will need increased support for home safety. GOALS Improve supine to sit to:: Independent Improve sit to stand to:: Independent Improve sit to supine to:: Independent Improve gait ability to:: CGA Advance Assistive Device to:: Front Wheeled Walker Increase distance walked to (in feet):: 150 Other gait goal:: Dereck during turns using FWW without LOB 100% of time. step through gait pattern 100% of time PLAN Frequency: 1-2x/day Duration: Until goals are met DISCHARGE RECOMMENDATIONS Discharge Location: Previous Living Situation Support/Services Needed: Home Health P.T. DC Equipment Recommended: Front wheeled walker Other Discharge Equipment: pt states he has FWW Transport Needs at Discharge: Personal vehicle
[2024-03-10] MEDS ORDERED: POTASSIUM CHLORIDE 20 MEQ/15 ML UDC PO SCH (08:00)
== END 2024-03-09 17:10 | disposition home health service (06) ==
LOC: ED 08:03 → MS2 08:03
PROVIDERS: ADMIT Specialist; ATTEND Specialist
DX: I25.10 Atherosclerotic heart disease of native coronary artery without angina pectoris; I27.81 Cor pulmonale (chronic); I50.810 Right heart failure, unspecified; Z79.4 Long term (current) use of insulin; R53.1 Weakness; J44.0 Chronic obstructive pulmonary disease with (acute) lower respiratory infection; E11.42 Type 2 diabetes mellitus with diabetic polyneuropathy; N40.1 Benign prostatic hyperplasia with lower urinary tract symptoms; I48.20 Chronic atrial fibrillation, unspecified; J43.2 Centrilobular emphysema; Z95.1 Presence of aortocoronary bypass graft; Z79.01 Long term (current) use of anticoagulants; R33.8 Other retention of urine; J96.01 Acute respiratory failure with hypoxia; J18.1 Lobar pneumonia, unspecified organism; I25.2 Old myocardial infarction; Z87.01 Personal history of pneumonia (recurrent)